=== PATIENT | female | born 1950 | race Caucasian/White ===

== ENCOUNTER 2020-02-07 11:43 | Outpatient (REF) | payer MEDICARE, MEDICAID, SELFPAY | END 2020-02-07 11:44 | disposition home or self-care (01) | LOC: HO.LAB 11:43 | PROVIDERS: PCP Hospitalist; Visit Provider Hospitalist | DX: Z20.828 Contact with and (suspected) exposure to other viral communicable diseases (principal); J44.9 Chronic obstructive pulmonary disease, unspecified | CPT/HCPCS: U0003 ==

== ENCOUNTER → 2020-03-12 09:05 | Outpatient (BNVA) | payer MEDICARE, MEDICAID, SELFPAY | PROVIDERS: PCP Internal Medicine; Visit Provider Hospitalist | DX: Z13.89 Encounter for screening for other disorder (principal) | CPT/HCPCS: Q3014 ==

== ENCOUNTER 2020-03-16 08:31 | Outpatient (REF) | payer MEDICARE, MEDICAID, SELFPAY ==
[2020-03-16 09:59] LABS: MANUAL DIFF FLAG NO
[2020-03-16 10:03] LABS: Basophils Percent Auto 0.3 % (0-2); Eosinophils Absolute Auto 0.2 X10*3/uL (0.0-0.4); Eosinophils Percent Auto 1.6 % (0-4); Hematocrit 35.8 % (37-47); Hemoglobin 10.6 g/dl (12.0-16.0); Imm Gran Abs Auto 0.03 X10*3/uL (0.00-0.03); Imm Gran Pct Auto 0.3 % (0.0-0.4); Lymphocytes Absolute Auto 2.4 X10*3/uL (1.2-4.9); Lymphocytes Percent Auto 23.6 % (20-40); Mean Corpuscular HGB Conc 29.6 g/dl (31.0-35.0); Mean Corpuscular Hemoglobin 25.1 pg (27.0-33.0); Mean Corpuscular Volume 84.6 fL (80-98); Mean Platelet Volume 10.6 fL (9.4-12.3); Monocytes Absolute Auto 0.5 X10*3/uL (0.1-1.2); Monocytes Percent Auto 5.2 % (2-11); Neutrophils Absolute Auto 7.1 X10*3/uL (2.0-8.3); Platelet Count 363 X10*3/uL (160-400); Red Blood Count 4.23 X10*6/uL (4.20-5.50); Red Cell Distribution Width 16.4 % (11.0-16.0); White Blood Count 10.3 X10*3/uL (4.8-10.8)
[2020-03-16 12:31] LABS: Erythrocyte Sedimentation Rate 14 MM/HR (0-20)
[2020-03-17 04:21] LABS: SARS COV2 IgG Negative (Negative)
[2020-03-17 18:37] LABS: Immunoglobulin E 75 kU/L (<OR=114)
== END 2020-03-16 08:32 | disposition home or self-care (01) ==
LOC: HO.LAB 08:31
PROVIDERS: PCP Internal Medicine; Visit Provider Hospitalist
DX: J45.40 Moderate persistent asthma, uncomplicated (principal); J44.9 Chronic obstructive pulmonary disease, unspecified; Z01.84 Encounter for antibody response examination
CPT/HCPCS: 36415; 82785; 85025; 85652; 86769

== ENCOUNTER → 2020-04-24 14:35 | Outpatient (BNVA) | payer MEDICARE, MEDICAID, SELFPAY | PROVIDERS: PCP Internal Medicine; Visit Provider Hospitalist | CPT/HCPCS: Q3014 ==

== ENCOUNTER → 2020-05-14 10:25 | Outpatient (BNVA) | payer MEDICARE, MEDICAID, SELFPAY | PROVIDERS: PCP Internal Medicine; Referring Provider Internal Medicine; Visit Provider Dietitian, Registered ==

== ENCOUNTER → 2020-07-10 10:51 | Outpatient (BNVA) | payer MEDICARE, MEDICAID, SELFPAY | PROVIDERS: PCP Internal Medicine; Visit Provider Hospitalist | DX: Z13.89 Encounter for screening for other disorder (principal) | CPT/HCPCS: Q3014 ==

== ENCOUNTER → 2020-11-11 10:06 | Outpatient (BNVA) | payer MEDICARE, MEDICAID, SELFPAY | PROVIDERS: PCP Internal Medicine; Visit Provider Hospitalist | DX: J44.9 Chronic obstructive pulmonary disease, unspecified (principal); J30.9 Allergic rhinitis, unspecified; J45.40 Moderate persistent asthma, uncomplicated; G47.33 Obstructive sleep apnea (adult) (pediatric); Z99.89 Dependence on other enabling machines and devices | CPT/HCPCS: 99212 ==

== ENCOUNTER → 2020-11-16 09:29 | Outpatient (BNVA) | payer MEDICARE, MEDICAID, SELFPAY | PROVIDERS: PCP Internal Medicine; Visit Provider Dietitian, Registered | DX: E11.9 Type 2 diabetes mellitus without complications (principal) | CPT/HCPCS: 97803 ==

== ENCOUNTER 2021-05-06 09:49 | Outpatient (REF) | payer MEDICARE, MEDICAID, SELFPAY ==
[2021-05-06 11:29] LABS: MANUAL DIFF FLAG NO
[2021-05-06 11:41] LABS: Basophils Percent Auto 0.3 % (0-2); Eosinophils Absolute Auto 0.2 X10*3/uL (0.0-0.4); Eosinophils Percent Auto 1.7 % (0-4); Hematocrit 38.1 % (37.0-47.0); Imm Gran Abs Auto 0.04 X10*3/uL (0.00-0.03); Imm Gran Pct Auto 0.4 % (0.0-0.4); Lymphocytes Absolute Auto 3.3 X10*3/uL (1.2-4.9); Lymphocytes Percent Auto 35.2 % (20-40); Mean Corpuscular HGB Conc 31.5 g/dl (31.0-35.0); Mean Corpuscular Hemoglobin 29.3 pg (27.0-33.0); Mean Corpuscular Volume 92.9 fL (80.0-98.0); Mean Platelet Volume 10.1 fL (9.4-12.3); Monocytes Absolute Auto 0.7 X10*3/uL (0.1-1.2); Monocytes Percent Auto 6.9 % (2-11); Neutrophils Absolute Auto 5.2 x10*3/uL (2.0-8.3); Neutrophils Percent Auto 55.5 % (45-73); Platelet Count 311 X10*3/uL (160-400); Red Cell Distribution Width 13.2 % (11.0-16.0); White Blood Count 9.4 X10*3/uL (4.8-10.8)
[2021-05-06 12:21] LABS: Erythrocyte Sedimentation Rate 12 MM/HR (0-20)
== END 2021-05-06 09:50 | disposition home or self-care (01) ==
LOC: HO.LAB 09:49
PROVIDERS: PCP Internal Medicine; Visit Provider Hospitalist
DX: R05.3 Chronic cough (principal); J44.9 Chronic obstructive pulmonary disease, unspecified; J45.40 Moderate persistent asthma, uncomplicated; R91.8 Other nonspecific abnormal finding of lung field; G47.33 Obstructive sleep apnea (adult) (pediatric); J30.9 Allergic rhinitis, unspecified; Z86.711 Personal history of pulmonary embolism; Z99.89 Dependence on other enabling machines and devices
CPT/HCPCS: 36415; 82785; 85025; 85652; 86003; 99212

== ENCOUNTER → 2021-05-18 09:39 | Outpatient (BNVA) | payer MEDICARE, MEDICAID, SELFPAY | PROVIDERS: PCP Internal Medicine; Visit Provider Dietitian, Registered | DX: E11.9 Type 2 diabetes mellitus without complications (principal) | CPT/HCPCS: 97803 ==

== ENCOUNTER 2021-07-23 08:31 | Outpatient (REF) | payer MEDICARE, MEDICAID, SELFPAY ==
--- NOTE | ~2021-07-23 | FL_ITS ---
EXAMINATION: FL BARIUM SWALLOW CLINICAL INFORMATION: Gastroesophageal reflux disease without esophagitis COMPARISON: None TECHNIQUE: Barium swallow examination is performed using fluoroscopic evaluation in addition to multiple fluoroscopic spot views. The patient is imaged both upright and prone and using both thick and thin sulfate along with effervescent granules. Barium tablet was swallowed in upright position. Fluoroscopy time: 2.5 minutes DAP: 8.878 Gycm2 Images: 27 FINDINGS: The patient initiated swallowing normally. There is mildly ineffective primary peristalsis with to-and-fro tertiary contractions most notable with swallowing in the prone position. No fixed esophageal mucosal abnormality to suggest fracture or mass. No Zenker's diverticulum noted. No hiatal hernia. No gastroesophageal reflux observed spontaneously or elicited with provocative maneuvers (rolling and Valsalva). A barium tablet was swallowed promptly. FL/FL barium swallow IMPRESSION: No gastroesophageal reflux seen. Mildly effective primary peristalsis most notable in prone position. Presbyesophagus can give this appearance.
== END 2021-07-23 08:32 | disposition home or self-care (01) ==
LOC: HO.XRAY 08:31
PROVIDERS: PCP Internal Medicine; Visit Provider Hospitalist
DX: K21.9 Gastro-esophageal reflux disease without esophagitis (principal)
CPT/HCPCS: 74220

== ENCOUNTER → 2021-08-11 10:10 | Outpatient (BNVA) | payer MEDICARE, MEDICAID, SELFPAY | PROVIDERS: PCP Internal Medicine; Visit Provider Hospitalist | DX: U07.1 COVID-19 (principal); J44.9 Chronic obstructive pulmonary disease, unspecified; G47.33 Obstructive sleep apnea (adult) (pediatric); J30.9 Allergic rhinitis, unspecified; J45.40 Moderate persistent asthma, uncomplicated; R05.3 Chronic cough; R91.8 Other nonspecific abnormal finding of lung field; Z99.89 Dependence on other enabling machines and devices | CPT/HCPCS: Q3014 ==

== ENCOUNTER 2021-08-25 08:23 | Outpatient (REF) | payer MEDICARE, MEDICAID, SELFPAY ==
--- NOTE | 2021-08-25 09:45 | PFT_ITS ---
Forced vital capacity is slightly decreased at 77%, FEV1 89%, normal, FEV1/FVC ratio is 89. [id number] 157% and MVV is 56%. Post bronchodilator therapy, there is no significant change. Total lung capacity is 74%. Residual volume 64%. Diffusion capacity 62%. CONCLUSION: Mild restrictive pulmonary disorder. No obstructive airway disorder. Clinical correlation recommended. MD ADELIA Jacinto/MODL / [id number]
== END 2021-08-25 08:24 | disposition home or self-care (01) ==
LOC: HO.RESP 08:23
PROVIDERS: Visit Provider Hospitalist
DX: J44.9 Chronic obstructive pulmonary disease, unspecified (principal)
CPT/HCPCS: 94060; 94727; 94729

== ENCOUNTER → 2021-09-03 10:25 | Outpatient (BNVA) | payer MEDICARE, MEDICAID, SELFPAY | PROVIDERS: PCP Internal Medicine; Visit Provider Hospitalist | DX: G47.33 Obstructive sleep apnea (adult) (pediatric) (principal); U09.9 Post COVID-19 condition, unspecified; R05.3 Chronic cough; J44.9 Chronic obstructive pulmonary disease, unspecified; J45.41 Moderate persistent asthma with (acute) exacerbation; R91.8 Other nonspecific abnormal finding of lung field; Z99.89 Dependence on other enabling machines and devices | CPT/HCPCS: 96372; 99212; J2930 ==

== ENCOUNTER → 2021-11-09 08:39 | Outpatient (BNVA) | payer MEDICARE, MEDICAID, SELFPAY | PROVIDERS: PCP Internal Medicine; Visit Provider Hospitalist | DX: J44.9 Chronic obstructive pulmonary disease, unspecified (principal); J45.41 Moderate persistent asthma with (acute) exacerbation; J30.9 Allergic rhinitis, unspecified; R05.3 Chronic cough; G47.33 Obstructive sleep apnea (adult) (pediatric); R91.8 Other nonspecific abnormal finding of lung field; L93.0 Discoid lupus erythematosus; Z79.899 Other long term (current) drug therapy; Z99.89 Dependence on other enabling machines and devices | CPT/HCPCS: 99212 ==

== ENCOUNTER → 2022-01-14 10:08 | Outpatient (BNVA) | payer MEDICARE, MEDICAID, SELFPAY | PROVIDERS: PCP Internal Medicine; Visit Provider Dietitian, Registered | DX: E11.9 Type 2 diabetes mellitus without complications (principal) | CPT/HCPCS: 97803 ==

== ENCOUNTER → 2022-02-11 10:33 | Outpatient (BNVA) | payer MEDICARE, MEDICAID, SELFPAY | PROVIDERS: PCP Internal Medicine; Visit Provider Hospitalist | DX: J44.9 Chronic obstructive pulmonary disease, unspecified (principal); J45.41 Moderate persistent asthma with (acute) exacerbation; J30.9 Allergic rhinitis, unspecified; R05.3 Chronic cough; R91.8 Other nonspecific abnormal finding of lung field; G47.33 Obstructive sleep apnea (adult) (pediatric); L93.0 Discoid lupus erythematosus; Z79.899 Other long term (current) drug therapy; Z99.89 Dependence on other enabling machines and devices | CPT/HCPCS: 99212 ==

== ENCOUNTER 2022-05-20 08:51 | Outpatient (REF) | payer MEDICARE, MEDICAID, SELFPAY ==
--- NOTE | ~2022-05-20 | XR_ITS ---
EXAMINATION: XR CHEST CLINICAL INFORMATION: Reason for Exam R06.00 - Dyspnea, unspecified COMPARISON: None TECHNIQUE: 2 views of the chest FINDINGS: Clear lungs. No pneumothorax or pleural effusion. Normal cardiomediastinal silhouette. Surgical anchors in the right humeral head. XR/XR chest 2V IMPRESSION: * Clear lungs.
[2022-05-20 10:25] LABS: MANUAL DIFF FLAG NO
[2022-05-20 10:29] LABS: Basophils Percent Auto 0.2 % (0-2); Eosinophils Absolute Auto 0.1 X10*3/uL (0.0-0.4); Eosinophils Percent Auto 1.7 % (0-4); Hematocrit 35.1 % (37.0-47.0); Hemoglobin 11.2 g/dl (12.0-16.0); Imm Gran Abs Auto 0.03 X10*3/uL (0.00-0.03); Imm Gran Pct Auto 0.4 % (0.0-0.4); Lymphocytes Absolute Auto 2.8 X10*3/uL (1.2-4.9); Lymphocytes Percent Auto 34.3 % (20-40); Mean Corpuscular HGB Conc 31.9 g/dl (31.0-35.0); Mean Corpuscular Hemoglobin 28.1 pg (27.0-33.0); Mean Corpuscular Volume 88.2 fL (80.0-98.0); Mean Platelet Volume 9.7 fL (9.4-12.3); Monocytes Absolute Auto 0.5 X10*3/uL (0.1-1.2); Monocytes Percent Auto 5.9 % (2-11); Neutrophils Absolute Auto 4.6 x10*3/uL (2.0-8.3); Neutrophils Percent Auto 57.5 % (45-73); Platelet Count 345 X10*3/uL (160-400); Red Blood Count 3.98 X10*6/uL (4.20-5.50); Red Cell Distribution Width 16.2 % (11.0-16.0); White Blood Count 8.1 X10*3/uL (4.8-10.8)
[2022-05-20 10:54] LABS: Alanine Aminotransferase 30 U/L (0-31); Albumin Level 4.1 g/dL (3.5-5.0); Alkaline Phosphatase 92 U/L (39-117); Anion Gap 10 (12-20); Aspartate Amino Transferase 23 U/L (5-31); Bilirubin Direct < 0.2 mg/dL (0.0-0.5); Bilirubin Total 0.3 mg/dL (0.0-1.0); Blood Urea Nitrogen 14 mg/dL (9-16); Calcium 9.2 mg/dL (8.4-10.2); Carbon Dioxide 27 mmol/L (22-29); Chloride 105 mmol/L (96-108); Estimated Glomerular Filt Rate > 60; Glucose Random 109 mg/dL (60-115); Potassium 4.8 mmol/L (3.3-5.1); Sodium 137 mmol/L (135-145); Total Protein 6.4 g/dL (6.5-8.0)
[2022-05-20 10:55] LABS: D Dimer High Sensitivity < 150 NG/ML
[2022-05-20 11:04] LABS: Troponin-I High Sensitivity < 3.5 ng/L (<3.5-17.0)
[2022-05-20 11:35] LABS: Erythrocyte Sedimentation Rate 7 MM/HR (0-20)
[2022-05-23 17:33] LABS: Immunoglobulin E 190 kU/L (<OR=114)
== END 2022-05-20 08:52 | disposition home or self-care (01) ==
LOC: HO.LAB 08:51
PROVIDERS: PCP Internal Medicine; Visit Provider Hospitalist
DX: R07.9 Chest pain, unspecified (principal); R06.00 Dyspnea, unspecified; M79.89 Other specified soft tissue disorders
CPT/HCPCS: 36415; 71046; 80048; 80076; 82785; 84484; 85025; 85379; 85652; 99212

== ENCOUNTER → 2022-07-19 08:55 | Outpatient (BNVA) | payer MEDICARE, MEDICAID, SELFPAY | PROVIDERS: PCP Internal Medicine; Visit Provider Hospitalist | DX: J45.41 Moderate persistent asthma with (acute) exacerbation (principal); J30.9 Allergic rhinitis, unspecified; J44.9 Chronic obstructive pulmonary disease, unspecified; G47.33 Obstructive sleep apnea (adult) (pediatric); R05.3 Chronic cough; R91.8 Other nonspecific abnormal finding of lung field; L93.0 Discoid lupus erythematosus; R06.09 Other forms of dyspnea; Z99.89 Dependence on other enabling machines and devices | CPT/HCPCS: 99212 ==

== ENCOUNTER → 2022-09-01 09:04 | Outpatient (BNVA) | payer MEDICARE, MEDICAID, SELFPAY | PROVIDERS: PCP Internal Medicine; Visit Provider Dietitian, Registered | DX: E11.9 Type 2 diabetes mellitus without complications (principal) | CPT/HCPCS: 97803 ==

== ENCOUNTER 2023-01-23 08:40 | Outpatient (AMB) | payer MEDICARE, MEDICAID, SELFPAY ==
[2023-01-23 08:59] VITALS: BP 118/70; PULSE 63; O2SAT 99; BMI 28.9
--- NOTE | 2023-01-23 08:59 | A.OFFVIS_ITS ---
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 Allergies acetaminophen [Percocet] Allergy (Severe, Verified 01/23/23 09:01) Vomitting and Diarrhea aspirin Allergy (Severe, Verified 01/23/23 09:01) Vomitting and Diarrhea oxycodone [Percocet] Allergy (Severe, Verified 01/23/23 09:01) Tachycardia and High Blood Pressure topiramate [Topamax] Allergy (Severe, Verified 01/23/23 09:01) Tachycardia and High Blood Pressure cyanocobalamin (vitamin B12) Allergy (Unknown, Verified 01/23/23 09:01) Vomitting and Diarrhea Amitriptyline Allergy (Severe, Uncoded 01/23/23 09:01) Tachycardia and High Blood Pressure latex- rash Allergy (Severe, Uncoded 01/23/23 09:01) Rash and Hives MigraLam Allergy (Severe, Uncoded 01/23/23 09:01) Vomitting and Diarrhea red meat Allergy (Severe, Uncoded 01/23/23 09:01) Vomitting and Diarrhea tomatoes, strawberrries Allergy (Severe, Uncoded 01/23/23 09:01) Vomitting and Diarrhea lactose intolerant Allergy (Unknown, Uncoded 01/23/23 09:01) vomitting and diarrhea HPI HPI Comments History of Present Illness Details The patient is a 72-year-old woman with known obstructive sleep apnea history of pulmonary emboli in addition to asthma. More recently she has been dealing with significant eczema and other rashes. She was placed on Dupixent significantly improving her rash but also significant improving her breathing. She has been having issues with hoarseness. I explained to her that it may be the Anoro. She can stop the Anoro just to see if this is the culprit. In the meantime if the horses not too bad she continue the Anoro and continue to rinse with mouthwash rather water. Alvesco as a very good steroid typically does not resulting hoarseness or any thrush. She should be using it with spacer. 05/06/2021 the patient is here for a pulmonary follow-up visit. Since we last spoke many months ago she has been complaining of a chronic cough. The cough is nonproductive in nature. Usually worse at nighttime when she lays flat. Sometimes it does gag her. Sometimes she has a hard time eating because she feels like food is getting stuck while she is swallowing. Sometimes she also regurgitation food. We did briefly discuss the reflux diet and she is drinking about 4 or 5 cups of coffee a day. She is going to try to cut that down to at least a couple. In the meantime she is doing the rest the diet. We did talk about the small meals and making sure that she sleeps elevated and does not eat too late. In the meantime she did have a episode of chest pain that was evaluated at [facility]. She was briefly admitted. With a history of pulmonary emboli she did undergo a CT scan of the chest that we personally reviewed. It demonstrated that she had stable pulmonary nodules subcentimeter in nature when compared to 2016 and 2017. Therefore these are very benign nodules. She did have some air trapping was a pattern consistent with her significant asthma. As far as medications on her metoprolol was increased during that time because of the high blood pressure. Still explained to her that sometimes too much the beta fuentes can in the interrupted benefits of her respiratory medicines. The patient does have significant asthma. She is also complaining of headaches. She has been using her CPAP at nighttime. Will address the question with an overnight oximetry to make sure that she is not desaturating at nighttime. Patient also complaining of dyspnea on exertion. She has responded very well to her respiratory therapy. The patient will undergo pulmonary function studies when she returns. 11/09/2021 the patient is here for a pulmonary follow-up visit. Overall the patient is doing a little better. She did have significant COVID-19 which ultimately activated her lupus. A appears to be mainly of her scan resulting significant pleuritis and skin changes. 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 The patient also has been noticing increased wheezing during the daytime. She also has a chronic cough with mucus production. The patient has use a lot of prednisone recently and she is currently maximize her respiratory therapy. In view of her frequent exacerbations and need for prednisone will go ahead and start her on Daliresp to treated for chronic bronchitis with hopes of decreasing exacerbations in the need for prednisone. The patient also has psoriasis and other autoimmune conditions which it may also help decrease the prednisone need. She continues use her CPAP at nighttime. The CPAP therapy continues to be effective in beneficial. Although her machine is not working appropriately. We did request a replacement machine from [facility]. She understands that is can take longer than usual. Will reach out to [facility] just to make sure that they have all the information that they need to move for with the replacement. 02/11/2022 the patient is here for a pulmonary follow-up visit. Overall she is doing well from a respiratory status. She is responding to the current respiratory regimen. She has not had to use her rescue inhaler. She is not using prednisone for her asthma. Seems to be well controlled. 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 Significant rashes difficult to control. She had responded very well to the Dupixent in the past. Although she stopped it because she was getting some all throughout just. At this point her atopic dermatitis and discoid lupus have been significantly exacerbated and she will talk to her dining room server about r estarting Dupixent. If she does start Dupixent a know that she will do better from a respiratory status and she will be able to cut down on some of the medications as well. She is also using her CPAP. The CPAP therapy continues to be affecting beneficial. She does use it for more than 4 hours a night. No recent x-rays of blood work to review at this time. 05/20/2022 the patient is here for a pulmonary follow-up visit. She has been having hard time with her breathing. She has been having more breathlessness and shortness of breath. Moderate severity. Even with minimal activity. She states that her breathing became worse after starting a new medication for her severe eczema, Rinvoq. The TOMMY inhibitor has been X effective in improving her significant neck small a throughout her body and she has found significant relief. Therefore, it is important to continues medication in view of how severe symptoms were prior to them. However, there may be affecting her breathing. She does have a history of blood clots and this medication can increase clot formation. On examination she does not have any significant wheezing. We did go for brief walking oximetry the patient did desaturate down to about 90% and she had a dyspnea score of 9/10. Although no significant wheezing or chest tightness that I could appreciate. Therefore I will have her undergo blood work in addition to a chest x-ray to better delineate her symptoms. 07/19/2022 the patient is here for a pulmonary follow-up visit. The patient is doing a lot better. She still responding well to the immune suppression for her significant dermatitis. It is probably helping her asthma as well. She does continue her respiratory therapy but has not required a rescue inhaler. She has not required any prednisone which is reassuring. The patient did get her new CPAP machine. The APAP is set up 10-14 and her average pressure is 10. Therefore likely patient probably can tolerate a lower pressure specially with an AHI of 0.8. Will go ahead and decrease the pressure to 8-14. The patient still has a ramp of 6. She will continue using the current mask. She is getting supplies readily from the [employer]. Otherwise patient is without any other complaints. The patient will call if any other issues arise. She will follow-up in 6-8 months. 01/23/2023 the patient is here for pulmonary follow-up visit. The patient overall doing well from a respiratory status. She continues her respiratory medications with good adherence. She has not required any rescue medication and not required any prednisone. Although she has a trip planned to [place] and I will make sure she has medications that she can take in case the asthma starts worsening while she is there. The patient continues with CPAP therapy. CPAP therapy continues to be affecting beneficial. She does use for more than 4 hours a night. [facility] Medical History (Updated 07/19/22 @ 22:36 by Jeremy Lomeli MD) Limb swelling Discoid lupus COVID-19 Pulmonary nodules Chronic cough Chronic allergic rhinitis Atopic dermatitis RUCHI on CPAP Asthma-COPD overlap syndrome Surgical History (Updated 09/06/21 @ 22:35 by Jeremy Lomeli MD) Asthma Social History (Updated 11/11/20 @ 11:00 by CHAIM Romero) Patient Tobacco Use Status: Never used Tobacco Review of Systems Const Denies body aches, Denies difficulty sleeping and Denies malaise Eyes Denies change in vision ENT Denies change in voice Card Denies chest pain, Reports leg edema and Reports dyspnea on exertion Resp Reports dyspnea on exertion and Denies wheezing GI Denies constipation, Reports dyspepsia, Denies diarrhea, Denies nausea and Denies vomiting Musc Reports no additional complaints Skin/Breast Denies pruritus and Denies rash Endo Denies flushing Nba/Lymph Denies lymphadenopathy Aller/Immun Denies wheezing Physical Exam Vital Signs: Last Vital Signs Pulse 63 01/23/23 08:59 BP 118/70 01/23/23 08:59 Pulse Ox 99 01/23/23 08:59 Oxygen Delivery Method Room Air 01/23/23 08:59 BMI result Body Mass Index 28.9 Const General: alert Orientation/consciousness: patient oriented x3 Neck Neck: Yes normal visual inspection, Yes full ROM and Yes no lymphadenopathy Chest Chest palpation & inspection: normal inspection of the chest Resp Effort & Inspection: normal respiratory effort Auscultation: no rales, no rhonchi, no wheezes and diminished lung sounds Cardio Rate: regular rate Rhythm: regular rhythm Heart sounds: S1 normal heart sound present and S2 normal heart sound present GI Palpation (GI): Soft to palpation and nontender Auscultation: normal bowel sounds Skin General skin exam: no rashes or lesions noted Neuro General: patient oriented x3 Extrem General: Yes no clubbing, cyanosis or edema Assessment & Plan Assessment & Plan (1) Dyspnea: Code(s): R06.00 - Dyspnea, unspecified Qualifiers: Dyspnea type: dyspnea on exertion Qualified Code(s): R06.09 - Other forms of dyspnea (2) Asthma-COPD overlap syndrome: Code(s): J44.9 - Chronic obstructive pulmonary disease, unspecified (3) RUCHI on CPAP: Code(s): G47.33 - Obstructive sleep apnea (adult) (pediatric); Z99.89 - Dependence on other enabling machines and devices (4) Chronic allergic rhinitis: Code(s): J30.9 - Allergic rhinitis, unspecified (5) Asthma: Code(s): J45.909 - Unspecified asthma, uncomplicated Qualifiers: Asthma complication type: with acute exacerbation Asthma persistence: persistent Asthma severity: moderate Qualified Code(s): J45.41 - Moderate persistent asthma with (acute) exacerbation (6) Chronic cough: Code(s): R05.3 - Chronic cough (7) Pulmonary nodules: Comment: Stable for more than 5 years based on her CT scan from September 2020 Code(s): R91.8 - Other nonspecific abnormal finding of lung field (8) Discoid lupus: Code(s): L93.0 - Discoid lupus erythematosus Plan Continue Anoro and Alvesco as prescribed AFTAB/nebulizer as needed Continue APAP therapy at night continue singulair F/U 6-8 months Medications: New albuterol sulfate 90 mcg/actuation 2 inhalations inhalation Q6H 30 days PRN 18 grams 12RF shortness of breath or wheezing J44.9 - Chronic obstructive pulmonary disease, unspecified doxycycline hyclate 100 mg PO BID 10 days 20 caps 0RF Refilled Anoro Ellipta 62.5-25 mcg/actuation (umeclidinium-vilanterol) 1 inh inhalation DAILY 180 ea 11RF NS ciclesonide 160 mcg/actuation (Alvesco) 1 puff PO BID 18.3 ea 11RF montelukast 10 mg PO BEDTIME 28 tabs 11RF Coding Level of Care Code Est Pt Level 4 (30561) Diagnoses Dyspnea on exertion R06.09 Dyspnea type: dyspnea on exertion Asthma-COPD overlap syndrome J44.9 RUCHI on CPAP G47.33; Z99.89 Chronic allergic rhinitis J30.9 Moderate persistent asthma with acute exacerbation J45.41 Asthma complication type: with acute exacerbation Asthma persistence: persistent Asthma severity: moderate Chronic cough R05.3 Pulmonary nodules R91.8 Discoid lupus L93.0 Time Spent (min) 16
== END 2023-01-23 09:19 | disposition home or self-care (01) ==
PROVIDERS: PCP Internal Medicine; Visit Provider Hospitalist
DX: R06.09 Other forms of dyspnea (principal); J44.9 Chronic obstructive pulmonary disease, unspecified; G47.33 Obstructive sleep apnea (adult) (pediatric); Z99.89 Dependence on other enabling machines and devices; J30.9 Allergic rhinitis, unspecified; J45.41 Moderate persistent asthma with (acute) exacerbation; R05.3 Chronic cough; R91.8 Other nonspecific abnormal finding of lung field; L93.0 Discoid lupus erythematosus
CPT/HCPCS: 99214

== ENCOUNTER → 2023-01-23 08:40 | Outpatient (BNVA) | payer MEDICARE, MEDICAID, SELFPAY | PROVIDERS: PCP Internal Medicine; Visit Provider Hospitalist | DX: J45.41 Moderate persistent asthma with (acute) exacerbation (principal); J44.9 Chronic obstructive pulmonary disease, unspecified; J30.9 Allergic rhinitis, unspecified; R06.09 Other forms of dyspnea; R05.3 Chronic cough; R91.8 Other nonspecific abnormal finding of lung field; G47.33 Obstructive sleep apnea (adult) (pediatric); L93.0 Discoid lupus erythematosus; Z99.89 Dependence on other enabling machines and devices | CPT/HCPCS: 99212 ==

== ENCOUNTER 2023-02-06 09:21 | Outpatient (AMB) | payer MEDICARE, MEDICAID, SELFPAY ==
[2023-02-06 10:07] VITALS: BMI 29.5
--- NOTE | 2023-02-06 10:07 | A.OFFVIS_ITS ---
Intake VS Expanded 02/06/23 10:07 Height 5 ft 3 in Weight 166 lb 10.711 oz BMI 29.5 Intake Visit Reasons: T2DM Allergies acetaminophen [Percocet] Allergy (Severe, Verified 01/23/23 09:01) Vomitting and Diarrhea aspirin Allergy (Severe, Verified 01/23/23 09:01) Vomitting and Diarrhea oxycodone [Percocet] Allergy (Severe, Verified 01/23/23 09:) Tachycardia and High Blood Pressure topiramate [Topamax] Allergy (Severe, Verified 01/23/23 09:01) Tachycardia and High Blood Pressure cyanocobalamin (vitamin B12) Allergy (Unknown, Verified 01/23/23 09:) Vomitting and Diarrhea Amitriptyline Allergy (Severe, Uncoded 01/23/23 09:) Tachycardia and High Blood Pressure latex- rash Allergy (Severe, Uncoded 01/23/23 09:) Rash and Hives MigraLam Allergy (Severe, Uncoded 01/23/23 09:) Vomitting and Diarrhea red meat Allergy (Severe, Uncoded 01/23/23 09:) Vomitting and Diarrhea tomatoes, strawberrries Allergy (Severe, Uncoded 01/23/23 09:01) Vomitting and Diarrhea lactose intolerant Allergy (Unknown, Uncoded 01/23/23 09:) vomitting and diarrhea HPI Nutrition Presentation Details Pt presents for MNT f/u for T2DM Pt brings BG record and FB ranging from 90-132 and bedtime BG ranging from 138- 189 , has had 2-3 poc higher than 200 in the past 2 weeks as per written record brought today. Pt reports feeling well. Reports needing review on low sodium concepts Has 3 meals/day and 1-2 snack, has a variety of foods food frequency protein foods : 9-12 oz/d ( from legumes/eggs/ poultry /beef/fish) fruits: 1-2/day as snack dairy: choosing dairy alternative (almond, pea, lactose free) 1-2 /d vegetables: 2 serving/d starches > 15 serving/d fried foods: 0-2/m pastries: 1-2/wk Most Recent Diabetes Results: Creatinine 0.75 mg/dL (0.5-1.4) 05/20/22 Blood Urea Nitrogen 14 mg/dL (9-16) 05/20/22 Sodium 137 mmol/L (135-145) 05/20/22 Potassium 4.8 mmol/L (3.3-5.1) 05/20/22 Chloride 105 mmol/L (96-108) 05/20/22 Carbon Dioxide 27 mmol/L (22-29) 05/20/22 Calcium 9.2 mg/dL (8.4-10.2) 05/20/22 AST 23 U/L (5-31) 05/20/22 ALT 30 U/L (0-31) 05/20/22 Total Protein 6.4 g/dL (6.5-8.0) L 05/20/22 Albumin 4.1 g/dL (3.5-5.0) 05/20/22 [facility] Medical History (Updated 07/19/22 @ 22:36 by Jeremy Lomeli MD) Limb swelling Discoid lupus COVID-19 Pulmonary nodules Chronic cough Chronic allergic rhinitis Atopic dermatitis RUCHI on CPAP Asthma-COPD overlap syndrome Surgical History (Updated 09/06/21 @ 22:35 by Jeremy Lomeli MD) Asthma Social History (Updated 11/11/20 @ 11:00 by Magda Powers Radha) Patient Tobacco Use Status: Never used Tobacco Assessment & Plan Assessment & Plan (1) Type 2 diabetes mellitus without complications: Code(s): E11.9 - Type 2 diabetes mellitus without complications Plan: Review low sodium food concepts es kcal needs as per Mifnvlin sT Jeor: 9531-8082 (sedentary) (40% carb, 30% fat, 30% prot) Est fluid needs as per 25 ml/kg bw: 1909 ml/d. Na: < 1500 mg/d Fiber 10-12 g/d and gradual increase to 25 as tolerated Educated patient on: ( R = reviewed V = verbalizes understanding N/R = needs review N/A = not applicable * Food sources of carbohydrate, adequate serving sizes and its role in various health conditions: R V * Differences between complex carbohydrates a simple carbohydrates, role of fiber in diet: R V * Differences between types of fats and role in diet (mono on saturated fat fatty acids, saturated fatty acids, trans fats): R V * Food sources of sodium in salt and healthy modifications for heart health in kidney health: R V * Vitamins and minerals: R V * Healthy plate method concept: R V * Physical activity: Benefits a precaution: R V * Hypoglycemia protocol (rule of 15): R V * Dietary prevention of Hyperglycemia: R V Patient Instructions: Choose low sodium food options, choose low sodium seasonings- see list of options Coding Level of Care Code Nutr Indiv Subseq (66081) Diagnoses Type 2 diabetes mellitus without complications E11.9 Time Spent (min) 30
== END 2023-02-06 10:38 | disposition home or self-care (01) ==
PROVIDERS: PCP Internal Medicine; Visit Provider Dietitian, Registered
DX: E11.9 Type 2 diabetes mellitus without complications (principal)

== ENCOUNTER → 2023-02-06 09:21 | Outpatient (BNVA) | payer MEDICARE, MEDICAID, SELFPAY | PROVIDERS: PCP Internal Medicine; Visit Provider Dietitian, Registered | DX: E11.9 Type 2 diabetes mellitus without complications (principal); Z68.29 Body mass index [BMI] 29.0-29.9, adult; Z71.3 Dietary counseling and surveillance | CPT/HCPCS: 97803 ==

== ENCOUNTER 2023-08-07 10:11 | Outpatient (AMB) | payer MEDICARE, MEDICAID, SELFPAY ==
--- NOTE | 2023-08-07 10:18 | A.OFFVIS_ITS ---
Vital Signs 08/07/23 10:19 Height 5 ft 3 in Weight 166 lb 10.711 oz BMI 29.5 Pulse 70 Pulse Source Pulse Oximeter Pulse Oximetry (%) 99 Oxygen Delivery Method Room Air Intake Visit Reasons: Asthma Coal Inspector Required: No Allergies acetaminophen [Percocet] Allergy (Severe, Verified 08/07/23 10:20) Vomitting and Diarrhea aspirin Allergy (Severe, Verified 08/07/23 10:20) Vomitting and Diarrhea oxycodone [Percocet] Allergy (Severe, Verified 08/07/23 10:20) Tachycardia and High Blood Pressure topiramate [Topamax] Allergy (Severe, Verified 08/07/23 10:20) Tachycardia and High Blood Pressure cyanocobalamin (vitamin B12) Allergy (Unknown, Verified 08/07/23 10:20) Vomitting and Diarrhea Amitriptyline Allergy (Severe, Uncoded 08/07/23 10:20) Tachycardia and High Blood Pressure latex- rash Allergy (Severe, Uncoded 08/07/23 10:20) Rash and Hives MigraLam Allergy (Severe, Uncoded 08/07/23 10:20) Vomitting and Diarrhea red meat Allergy (Severe, Uncoded 08/07/23 10:20) Vomitting and Diarrhea tomatoes, strawberrries Allergy (Severe, Uncoded 08/07/23 10:20) Vomitting and Diarrhea lactose intolerant Allergy (Unknown, Uncoded 08/07/23 10:20) vomitting and diarrhea HPI Comments Details: The patient is a 72-year-old woman with known obstructive sleep apnea history of pulmonary emboli in addition to asthma. More recently she has been dealing with significant eczema and other rashes. She was placed on Dupixent significantly improving her rash but also significant improving her breathing. She has been having issues with hoarseness. I explained to her that it may be the Anoro. She can stop the Anoro just to see if this is the culprit. In the meantime if the horses not too bad she continue the Anoro and continue to rinse with mouthwash rather water. Alvesco as a very good steroid typically does not resulting hoarseness or any thrush. She should be using it with spacer. 05/06/2021 the patient is here for a pulmonary follow-up visit. Since we last spoke many months ago she has been complaining of a chronic cough. The cough is nonproductive in nature. Usually worse at nighttime when she lays flat. Sometimes it does gag her. Sometimes she has a hard time eating because she feels like food is getting stuck while she is swallowing. Sometimes she also regurgitation food. We did briefly discuss the reflux diet and she is drinking about 4 or 5 cups of coffee a day. She is going to try to cut that down to at least a couple. In the meantime she is doing the rest the diet. We did talk about the small meals and making sure that she sleeps elevated and does not eat too late. In the meantime she did have a episode of chest pain that was evaluated at [facility]. She was briefly admitted. With a history of pulmonary emboli she did undergo a CT scan of the chest that we personally reviewed. It demonstrated that she had stable pulmonary nodules subcentimeter in nature when compared to 2016 and 2017. Therefore these are very benign nodules. She did have some air trapping was a pattern consistent with her significant asthma. As far as medications on her metoprolol was increased during that time because of the high blood pressure. Still explained to her that sometimes too much the beta fuentes can in the interrupted benefits of her respiratory medicines. The patient does have significant asthma. She is also complaining of headaches. She has been using her CPAP at nighttime. Will address the question with an overnight oximetry to make sure that she is not desaturating at nighttime. Patient also complaining of dyspnea on exertion. She has responded very well to her respiratory therapy. The patient will undergo pulmonary function studies when she returns. 07/19/2022 the patient is here for a pulmonary follow-up visit. The patient is doing a lot better. She still responding well to the immune suppression for her significant dermatitis. It is probably helping her asthma as well. She does continue her respiratory therapy but has not required a rescue inhaler. She has not required any prednisone which is reassuring. The patient did get her new CPAP machine. The APAP is set up 10-14 and her average pressure is 10. Therefore likely patient probably can tolerate a lower pressure specially with an AHI of 0.8. Will go ahead and decrease the pressure to 8-14. The patient still has a ramp of 6. She will continue using the current mask. She is getting supplies readily from the [employer]. Otherwise patient is without any other complaints. The patient will call if any other issues arise. She will follow-up in 6-8 months. 01/23/2023 the patient is here for pulmonary follow-up visit. The patient overall doing well from a respiratory status. She continues her respiratory medications with good adherence. She has not required any rescue medication and not required any prednisone. Although she has a trip planned to [place] and I will make sure she has medications that she can take in case the asthma starts worsening while she is there. The patient continues with CPAP therapy. CPAP therapy continues to be affecting beneficial. She does use for more than 4 hours a night. 08/07/2023 the patient is here for a pulmonary follow-up visit. Overall she is doing fair. She has been having issues with low oxygen levels. She does have a home pulse oximeter that sometimes she reads pulse ox in the 80s. She does get very cold hands however. Is not clear how accurate reading is. She also went to [facility] for a colonoscopy and also an upper endoscopy. Apparently she could back. The colonoscopy done because she did become hypoxic. I do not have the details of what happened. Indeed the patient was under some anesthesia effect and she does have underlying sleep apnea so the probably had a component. Will go ahead and request a chest x-ray at this time. The patient also describes some chest pressure especially when exercising. She did have an EKG at [facility] and she was told that it was okay. Will go ahead and request a cardiac stress echo to see if there is any cardiac component. She does continue on her Alvesco and also Anoro. Therapy has been affecting beneficial she denies any wheezing or coughing. She also continues uses CPAP at nighttime. The CPAP therapy again continues to be affecting beneficial. I did reassure her with a brief walking oximetry that her pulse ox was 99-100%. Heart rate was also stable. She is aware that if she is going to use her home pulse oximeter she needs to make sure that she has good perfusion to her extremities. [facility] Medical History (Updated 08/07/23 @ 10:48 by Jeremy Lomeli MD) Limb swelling Discoid lupus COVID-19 Pulmonary nodules Chronic cough Chronic allergic rhinitis Atopic dermatitis RUCHI on CPAP Asthma-COPD overlap syndrome Surgical History (Updated 09/06/21 @ 22:35 by Jeremy Lomeli MD) Asthma Social History (Updated 11/11/20 @ 11:00 by CHAIM Romero) Patient Tobacco Use Status: Never used Tobacco Review of Systems Const Denies body aches, Denies difficulty sleeping and Denies malaise Eyes Denies change in vision ENT Denies change in voice Card Reports chest pain, Reports leg edema and Reports dyspnea on exertion Resp Reports dyspnea on exertion and Denies wheezing GI Denies constipation, Reports dyspepsia, Denies diarrhea, Denies nausea and Denies vomiting Musc Reports no additional complaints Skin/Breast Denies pruritus and Denies rash Endo Denies flushing Nba/Lymph Denies lymphadenopathy Aller/Immun Denies wheezing Physical Exam Vital Signs: Last Vital Signs Pulse 70 08/07/23 10:19 Pulse Ox 99 08/07/23 10:19 Oxygen Delivery Method Room Air 08/07/23 10:19 BMI result Body Mass Index 29.5 Const General: alert Orientation/consciousness: patient oriented x3 Neck Neck: Yes normal visual inspection, Yes full ROM and Yes no lymphadenopathy Chest Chest palpation & inspection: normal inspection of the chest Resp Effort & Inspection: normal respiratory effort Auscultation: no rales, no rhonchi, no wheezes and diminished lung sounds Cardio Rate: regular rate Rhythm: regular rhythm Heart sounds: S1 normal heart sound present and S2 normal heart sound present GI Palpation (GI): Soft to palpation and nontender Auscultation: normal bowel sounds Skin General skin exam: no rashes or lesions noted Neuro General: patient oriented x3 Extrem General: Yes no clubbing, cyanosis or edema Assessment & Plan Assessment & Plan (1) Dyspnea: Code(s): R06.00 - Dyspnea, unspecified Category: Medical Qualifiers: Dyspnea type: dyspnea on exertion Qualified Code(s): R06.09 - Other forms of dyspnea (2) Asthma-COPD overlap syndrome: Code(s): J44.9 - Chronic obstructive pulmonary disease, unspecified Category: Medical (3) RUCHI on CPAP: Code(s): G47.33 - Obstructive sleep apnea (adult) (pediatric); Z99.89 - Dependence on other enabling machines and devices Category: Medical (4) Chronic allergic rhinitis: Code(s): J30.9 - Allergic rhinitis, unspecified Category: Medical (5) Asthma: Code(s): J45.909 - Unspecified asthma, uncomplicated Category: Surgical Qualifiers: Asthma complication type: with acute exacerbation Asthma persistence: persistent Asthma severity: moderate Qualified Code(s): J45.41 - Moderate persistent asthma with (acute) exacerbation (6) Chronic cough: Code(s): R05.3 - Chronic cough Category: Medical (7) Pulmonary nodules: Comment: Stable for more than 5 years based on her CT scan from September 2020 Code(s): R91.8 - Other nonspecific abnormal finding of lung field Category: Medical (8) Discoid lupus: Code(s): L93.0 - Discoid lupus erythematosus Category: Medical (9) Chest pain: Code(s): R07.9 - Chest pain, unspecified Category: Medical Qualifiers: Chest pain type: unspecified Qualified Code(s): R07.9 - Chest pain, unspecified Plan Continue Anoro and Alvesco as prescribed AFTAB/nebulizer as needed Continue APAP therapy at night continue singulair CXR Stress ECHO F/U 2-3 months Orders: Orders CA echo stress exercise Today R06.09 - Other forms of dyspnea, R07.9 - Chest pain, unspecified XR chest 2V Today R07.9 - Chest pain, unspecified Coding Level of Care Code Est Pt Level 4 (02662) Diagnoses Dyspnea on exertion R06.09 Dyspnea type: dyspnea on exertion Asthma-COPD overlap syndrome J44.9 RUCHI on CPAP G47.33; Z99.89 Chronic allergic rhinitis J30.9 Moderate persistent asthma with acute exacerbation J45.41 Asthma complication type: with acute exacerbation Asthma persistence: persistent Asthma severity: moderate Chronic cough R05.3 Pulmonary nodules R91.8 Discoid lupus L93.0 Chest pain, unspecified type R07.9 Chest pain type: unspecified Time Spent (min) 18
[2023-08-07 10:19] VITALS: PULSE 70; O2SAT 99; BMI 29.5
== END 2023-08-07 10:51 | disposition home or self-care (01) ==
PROVIDERS: PCP Internal Medicine; Visit Provider Hospitalist
DX: R06.09 Other forms of dyspnea (principal); J44.9 Chronic obstructive pulmonary disease, unspecified; G47.33 Obstructive sleep apnea (adult) (pediatric); Z99.89 Dependence on other enabling machines and devices; J30.9 Allergic rhinitis, unspecified; J45.41 Moderate persistent asthma with (acute) exacerbation; R05.3 Chronic cough; R91.8 Other nonspecific abnormal finding of lung field; L93.0 Discoid lupus erythematosus; R07.9 Chest pain, unspecified
CPT/HCPCS: 99214

== ENCOUNTER → 2023-08-07 10:11 | Outpatient (BNVA) | payer MEDICARE, MEDICAID, SELFPAY | PROVIDERS: PCP Internal Medicine; Visit Provider Hospitalist | DX: R06.09 Other forms of dyspnea (principal); J44.9 Chronic obstructive pulmonary disease, unspecified; J30.9 Allergic rhinitis, unspecified; R91.8 Other nonspecific abnormal finding of lung field; L93.0 Discoid lupus erythematosus; G47.33 Obstructive sleep apnea (adult) (pediatric); R05.3 Chronic cough; R07.9 Chest pain, unspecified; Z99.89 Dependence on other enabling machines and devices | CPT/HCPCS: 99212 ==

== ENCOUNTER 2023-08-22 08:31 | Outpatient (AMB) | payer MEDICARE, MEDICAID, SELFPAY ==
--- NOTE | 2023-08-22 08:50 | A.OFFVIS_ITS ---
VS Expanded 08/22/23 08:51 Height 5 ft 3 in Weight 166 lb 10.711 oz BMI 29.5 Intake Visit Reasons: T2DM/LVM Allergies acetaminophen [Percocet] Allergy (Severe, Verified 08/07/23 10:20) Vomitting and Diarrhea aspirin Allergy (Severe, Verified 08/07/23 10:20) Vomitting and Diarrhea oxycodone [Percocet] Allergy (Severe, Verified 08/07/23 10:20) Tachycardia and High Blood Pressure topiramate [Topamax] Allergy (Severe, Verified 08/07/23 10:20) Tachycardia and High Blood Pressure cyanocobalamin (vitamin B12) Allergy (Unknown, Verified 08/07/23 10:20) Vomitting and Diarrhea Amitriptyline Allergy (Severe, Uncoded 08/07/23 10:20) Tachycardia and High Blood Pressure latex- rash Allergy (Severe, Uncoded 08/07/23 10:20) Rash and Hives MigraLam Allergy (Severe, Uncoded 08/07/23 10:20) Vomitting and Diarrhea red meat Allergy (Severe, Uncoded 08/07/23 10:20) Vomitting and Diarrhea tomatoes, strawberrries Allergy (Severe, Uncoded 08/07/23 10:20) Vomitting and Diarrhea lactose intolerant Allergy (Unknown, Uncoded 08/07/23 10:20) vomitting and diarrhea Nutrition Presentation Details: Pt presents for MNT f/u for T2DM Pt brought BG record to [facility] appt and FBG 120-146 mg/dl, and 2 hours ranges from 102- 181 mg/dl Pt reports having good appetite, participating in [facility] prog in [facility] and has breakfast and lunch at the prog B: eggs, wheat bread, coffee /tea and fruit L: Root veg, codfish and peppers/onions, fruit water or milk dinner: rice/chaney chicken or tuna sand and fruit snack: peanut butter crackers (sometimes skips snack, reports noticing higher fasting bg when skipping bedtime snack. fruits/day: 2-3/d dairy: choosing lactose free related to intolerance 2-3 /day ve serving /day fish: 1-3 x/wk fried foods: 1-2 m ETOH/smoking denies BS Monitoring Most Recent Diabetes Results: No Data to Display [facility] Medical History (Updated 08/07/23 @ 10:48 by Jeremy Lomeli MD) Limb swelling Discoid lupus COVID-19 Pulmonary nodules Chronic cough Chronic allergic rhinitis Atopic dermatitis RUCHI on CPAP Asthma-COPD overlap syndrome Surgical History (Updated 09/06/21 @ 22:35 by Jeremy Lomeli MD) Asthma Social History (Updated 11/11/20 @ 11:00 by Magda Powers Radha) Patient Tobacco Use Status: Never used Tobacco Assessment & Plan Assessment & Plan (1) Type 2 diabetes mellitus without complications: Code(s): E11.9 - Type 2 diabetes mellitus without complications Category: Medical Plan: Review low sodium food concepts es kcal needs as per Miffllin sT Jeor: [id number] (sedentary) (40% carb, 30% fat, 30% prot) Est fluid needs as per 25 ml/kg bw: 1909 ml/d. Na: < 1500 mg/d Fiber 10-12 g/d and gradual increase to 25 as tolerated Educated patient on: ( R = reviewed V = verbalizes understanding N/R = needs review N/A = not applicable * Food sources of carbohydrate, adequate serving sizes and its role in various health conditions: R V * Differences between complex carbohydrates a simple carbohydrates, role of fiber in diet: R V * Differences between types of fats and role in diet (mono on saturated fat fatty acids, saturated fatty acids, trans fats): R V * Food sources of sodium in salt and healthy modifications for heart health in kidney health: R V * Vitamins and minerals: R V * Healthy plate method concept: R V * Physical activity: Benefits a precaution: R V * Hypoglycemia protocol (rule of 15): R V * Dietary prevention of Hyperglycemia: R V Patient Instructions: Continue havin 3 meals/day and 1-2 snack Continue including lean protein foods in each meal Choose low sodium seasonings - see list Coding Level of Care Code Nutr Indiv Subseq (90409) Diagnoses Type 2 diabetes mellitus without complications E11.9 Time Spent (min) 30
[2023-08-22 08:51] VITALS: BMI 29.5
== END 2023-08-22 09:23 | disposition home or self-care (01) ==
PROVIDERS: PCP Internal Medicine; Visit Provider Dietitian, Registered
DX: E11.9 Type 2 diabetes mellitus without complications (principal)

== ENCOUNTER → 2023-08-22 08:31 | Outpatient (BNVA) | payer MEDICARE, MEDICAID, SELFPAY | PROVIDERS: PCP Internal Medicine; Visit Provider Dietitian, Registered | DX: E11.9 Type 2 diabetes mellitus without complications (principal); Z71.3 Dietary counseling and surveillance | CPT/HCPCS: 97803 ==

== ENCOUNTER → 2023-09-21 10:47 | Outpatient (REF) | payer MEDICARE, MEDICAID, SELFPAY ==
--- NOTE | 2023-09-21 10:49 | CA_ITS ---
Acquisition Time: 2023-09-21 10:53:48 Total Exercise Time: 00:02:20 Test Indications: CP, SOB Medications: SEE H Protocol: MELYSSA Max HR: 112 BPM 75% of Pred: 149 BPM Max BP: 156/050 mmHG Max Work Load: 4.6 METS Exercise stress test exercise 2 min 20 sec of Melyssa protocol achieving 69% MPHR with request to stop due to body pain and shortness of breath with moderate SOB, no chest discomfort, without arrhythmias, with normotensive response to exercise, with nondiagnoisitic EKGs. Echo images obtained by tech at rest and immediately post peak exercies. Definity contrast use. Test reviewed [facility] Dr. Sexton Referred By: Jeremy Lomeli Overread By: Mary Kern
== END ==
LOC: HO.CARD 10:47
PROVIDERS: PCP Internal Medicine; Visit Provider Hospitalist
DX: R07.9 Chest pain, unspecified (principal); R06.09 Other forms of dyspnea
CPT/HCPCS: 93350; Q9957

== ENCOUNTER → 2023-09-21 10:49 | Outpatient (BNV) | payer MEDICARE, MEDICAID, SELFPAY | PROVIDERS: PCP Internal Medicine; Visit Provider Nurse Practitioner | DX: R06.02 Shortness of breath (principal); R07.9 Chest pain, unspecified | CPT/HCPCS: 93016; 93018; 93350; 93352 ==

== ENCOUNTER 2023-10-06 09:06 | Outpatient (AMB) | payer MEDICARE, MEDICAID, SELFPAY ==
[2023-10-06 09:13] VITALS: PULSE 69; O2SAT 98; BMI 30.1
--- NOTE | 2023-10-06 09:13 | MHC.OFFVIS ---
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: No Allergies acetaminophen [Percocet] Allergy (Severe, Verified 10/06/23 09:15) Vomitting and Diarrhea aspirin Allergy (Severe, Verified 10/06/23 09:15) Vomitting and Diarrhea oxycodone [Percocet] Allergy (Severe, Verified 10/06/23 09:15) Tachycardia and High Blood Pressure topiramate [Topamax] Allergy (Severe, Verified 10/06/23 09:15) Tachycardia and High Blood Pressure cyanocobalamin (vitamin B12) Allergy (Unknown, Verified 10/06/23 09:15) Vomitting and Diarrhea Amitriptyline Allergy (Severe, Uncoded 10/06/23 09:15) Tachycardia and High Blood Pressure latex- rash Allergy (Severe, Uncoded 10/06/23 09:15) Rash and Hives MigraLam Allergy (Severe, Uncoded 10/06/23 09:15) Vomitting and Diarrhea red meat Allergy (Severe, Uncoded 10/06/23 09:15) Vomitting and Diarrhea tomatoes, strawberrries Allergy (Severe, Uncoded 10/06/23 09:15) Vomitting and Diarrhea lactose intolerant Allergy (Unknown, Uncoded 10/06/23 09:15) vomitting and diarrhea HPI Comments Details: The patient is a 73-year-old woman with known obstructive sleep apnea history of pulmonary emboli in addition to asthma. More recently she has been dealing with significant eczema and other rashes. She was placed on Dupixent significantly improving her rash but also significant improving her breathing. She has been having issues with hoarseness. I explained to her that it may be the Anoro. She can stop the Anoro just to see if this is the culprit. In the meantime if the horses not too bad she continue the Anoro and continue to rinse with mouthwash rather water. Alvesco as a very good steroid typically does not resulting hoarseness or any thrush. She should be using it with spacer. 05/06/2021 the patient is here for a pulmonary follow-up visit. Since we last spoke many months ago she has been complaining of a chronic cough. The cough is nonproductive in nature. Usually worse at nighttime when she lays flat. Sometimes it does gag her. Sometimes she has a hard time eating because she feels like food is getting stuck while she is swallowing. Sometimes she also regurgitation food. We did briefly discuss the reflux diet and she is drinking about 4 or 5 cups of coffee a day. She is going to try to cut that down to at least a couple. In the meantime she is doing the rest the diet. We did talk about the small meals and making sure that she sleeps elevated and does not eat too late. In the meantime she did have a episode of chest pain that was evaluated at [facility]. She was briefly admitted. With a history of pulmonary emboli she did undergo a CT scan of the chest that we personally reviewed. It demonstrated that she had stable pulmonary nodules subcentimeter in nature when compared to 2016 and 2017. Therefore these are very benign nodules. She did have some air trapping was a pattern consistent with her significant asthma. As far as medications on her metoprolol was increased during that time because of the high blood pressure. Still explained to her that sometimes too much the beta fuentes can in the interrupted benefits of her respiratory medicines. The patient does have significant asthma. She is also complaining of headaches. She has been using her CPAP at nighttime. Will address the question with an overnight oximetry to make sure that she is not desaturating at nighttime. Patient also complaining of dyspnea on exertion. She has responded very well to her respiratory therapy. The patient will undergo pulmonary function studies when she returns. 07/19/2022 the patient is here for a pulmonary follow-up visit. The patient is doing a lot better. She still responding well to the immune suppression for her significant dermatitis. It is probably helping her asthma as well. She does continue her respiratory therapy but has not required a rescue inhaler. She has not required any prednisone which is reassuring. The patient did get her new CPAP machine. The APAP is set up 10-14 and her average pressure is 10. Therefore likely patient probably can tolerate a lower pressure specially with an AHI of 0.8. Will go ahead and decrease the pressure to 8-14. The patient still has a ramp of 6. She will continue using the current mask. She is getting supplies readily from the [employer]. Otherwise patient is without any other complaints. The patient will call if any other issues arise. She will follow-up in 6-8 months. 01/23/2023 the patient is here for pulmonary follow-up visit. The patient overall doing well from a respiratory status. She continues her respiratory medications with good adherence. She has not required any rescue medication and not required any prednisone. Although she has a trip planned to [place] and I will make sure she has medications that she can take in case the asthma starts worsening while she is there. The patient continues with CPAP therapy. CPAP therapy continues to be affecting beneficial. She does use for more than 4 hours a night. 08/07/2023 the patient is here for a pulmonary follow-up visit. Overall she is doing fair. She has been having issues with low oxygen levels. She does have a home pulse oximeter that sometimes she reads pulse ox in the 80s. She does get very cold hands however. Is not clear how accurate reading is. She also went to [facility] for a colonoscopy and also an upper endoscopy. Apparently she could back. The colonoscopy done because she did become hypoxic. I do not have the details of what happened. Indeed the patient was under some anesthesia effect and she does have underlying sleep apnea so the probably had a component. Will go ahead and request a chest x-ray at this time. The patient also describes some chest pressure especially when exercising. She did have an EKG at [facility] and she was told that it was okay. Will go ahead and request a cardiac stress echo to see if there is any cardiac component. She does continue on her Alvesco and also Anoro. Therapy has been affecting beneficial she denies any wheezing or coughing. She also continues uses CPAP at nighttime. The CPAP therapy again continues to be affecting beneficial. I did reassure her with a brief walking oximetry that her pulse ox was 99-100%. Heart rate was also stable. She is aware that if she is going to use her home pulse oximeter she needs to make sure that she has good perfusion to her extremities. 10/06/2023 the patient is here for a pulmonary follow-up visit. She is doing better this time. She did have a brief hospitalization at [facility]. She was having increasing dizziness and shortness of breath along with weakness. She was noted to have acute anemia. Iron deficiency. She is placed on iron. The patient also had other medication stop them have been contributing. Her ferritin level significantly low. Explained to her that with her anemia she could be experiencing some increasing dyspnea on exertion due to the decrease oxygen transport. In the meantime she continues use her respiratory therapy with good effect. She also continues to be on CPAP at nighttime. The CPAP therapy has been affecting beneficial. Prior to the hospitalization the patient did have a stress echo which is reassuring. And seems like her lupus is stable at this time. [facility] Medical History (Updated 08/07/23 @ 10:48 by Jeremy Lomeli MD) Limb swelling Discoid lupus COVID-19 Pulmonary nodules Chronic cough Chronic allergic rhinitis Atopic dermatitis RUCHI on CPAP Asthma-COPD overlap syndrome Surgical History (Updated 09/06/21 @ 22:35 by Jeremy Lomeli MD) Asthma Social History (Updated 11/11/20 @ 11:00 by CHAIM Romero) Patient Tobacco Use Status: Never used Tobacco Review of Systems Const Denies body aches, Denies difficulty sleeping and Denies malaise Eyes Denies change in vision ENT Denies change in voice Card Reports chest pain, Reports leg edema and Reports dyspnea on exertion Resp Reports dyspnea on exertion and Denies wheezing GI Denies constipation, Reports dyspepsia, Denies diarrhea, Denies nausea and Denies vomiting Musc Reports no additional complaints Skin/Breast Denies pruritus and Denies rash Endo Denies flushing Nba/Lymph Denies lymphadenopathy Aller/Immun Denies wheezing Physical Exam Vital Signs: Last Vital Signs Pulse 69 10/06/23 09:13 Pulse Ox 98 10/06/23 09:13 Oxygen Delivery Method Room Air 10/06/23 09:13 BMI result Body Mass Index 30.1 Const General: alert Orientation/consciousness: patient oriented x3 Neck Neck: Yes normal visual inspection, Yes full ROM and Yes no lymphadenopathy Chest Chest palpation & inspection: normal inspection of the chest Resp Effort & Inspection: normal respiratory effort Auscultation: no rales, no rhonchi, no wheezes and diminished lung sounds Cardio Rate: regular rate Rhythm: regular rhythm Heart sounds: S1 normal heart sound present and S2 normal heart sound present GI Palpation (GI): Soft to palpation and nontender Auscultation: normal bowel sounds Skin General skin exam: no rashes or lesions noted Neuro General: patient oriented x3 Extrem General: Yes no clubbing, cyanosis or edema Assessment & Plan Assessment & Plan (1) Dyspnea: Code(s): R06.00 - Dyspnea, unspecified Category: Medical Qualifiers: Dyspnea type: dyspnea on exertion Qualified Code(s): R06.09 - Other forms of dyspnea (2) Asthma-COPD overlap syndrome: Code(s): J44.9 - Chronic obstructive pulmonary disease, unspecified Category: Medical (3) RUCHI on CPAP: Code(s): G47.33 - Obstructive sleep apnea (adult) (pediatric); Z99.89 - Dependence on other enabling machines and devices Category: Medical (4) Chronic allergic rhinitis: Code(s): J30.9 - Allergic rhinitis, unspecified Category: Medical (5) Asthma: Code(s): J45.909 - Unspecified asthma, uncomplicated Category: Surgical Qualifiers: Asthma complication type: with acute exacerbation Asthma persistence: persistent Asthma severity: moderate Qualified Code(s): J45.41 - Moderate persistent asthma with (acute) exacerbation (6) Chronic cough: Code(s): R05.3 - Chronic cough Category: Medical (7) Pulmonary nodules: Comment: Stable for more than 5 years based on her CT scan from September 2020 Code(s): R91.8 - Other nonspecific abnormal finding of lung field Category: Medical (8) Discoid lupus: Code(s): L93.0 - Discoid lupus erythematosus Category: Medical (9) Chest pain: Code(s): R07.9 - Chest pain, unspecified Category: Medical Qualifiers: Chest pain type: unspecified Qualified Code(s): R07.9 - Chest pain, unspecified Plan Continue Anoro and Alvesco as prescribed AFTAB/nebulizer as needed Continue APAP therapy at night continue singulair monitor Anemia and ferritin levels. F/U 4-6 months Coding Level of Care Code Est Pt Level 4 (04957) Diagnoses Dyspnea on exertion R06.09 Dyspnea type: dyspnea on exertion Asthma-COPD overlap syndrome J44.9 RUCHI on CPAP G47.33; Z99.89 Chronic allergic rhinitis J30.9 Moderate persistent asthma with acute exacerbation J45.41 Asthma complication type: with acute exacerbation Asthma persistence: persistent Asthma severity: moderate Chronic cough R05.3 Pulmonary nodules R91.8 Discoid lupus L93.0 Chest pain, unspecified type R07.9 Chest pain type: unspecified Time Spent (min) 17
== END 2023-10-06 09:43 | disposition home or self-care (01) ==
PROVIDERS: PCP Internal Medicine; Visit Provider Hospitalist
DX: R06.09 Other forms of dyspnea (principal); J44.9 Chronic obstructive pulmonary disease, unspecified; G47.33 Obstructive sleep apnea (adult) (pediatric); Z99.89 Dependence on other enabling machines and devices; J30.9 Allergic rhinitis, unspecified; J45.41 Moderate persistent asthma with (acute) exacerbation; R05.3 Chronic cough; R91.8 Other nonspecific abnormal finding of lung field; L93.0 Discoid lupus erythematosus; R07.9 Chest pain, unspecified
CPT/HCPCS: 99214

== ENCOUNTER → 2023-10-06 09:06 | Outpatient (BNVA) | payer MEDICARE, MEDICAID, SELFPAY | PROVIDERS: PCP Internal Medicine; Visit Provider Hospitalist | DX: J44.9 Chronic obstructive pulmonary disease, unspecified (principal); J45.41 Moderate persistent asthma with (acute) exacerbation; J30.9 Allergic rhinitis, unspecified; R07.9 Chest pain, unspecified; R06.09 Other forms of dyspnea; R05.3 Chronic cough; R91.8 Other nonspecific abnormal finding of lung field; L93.0 Discoid lupus erythematosus; G47.33 Obstructive sleep apnea (adult) (pediatric); Z99.89 Dependence on other enabling machines and devices | CPT/HCPCS: 99212 ==

== ENCOUNTER 2024-02-05 07:37 | Outpatient (AMB) | payer OTHER, MEDICAID, SELFPAY ==
[2024-02-05 08:36] VITALS: BMI 29.0
--- NOTE | 2024-02-05 08:36 | A.OFFVIS_ITS ---
VS Expanded 02/05/24 08:36 Height 5 ft 3 in Weight 163 lb 9.328 oz BMI 29.0 Intake Visit Reasons: T2DM/LVM Allergies acetaminophen [Percocet] Allergy (Severe, Verified 10/06/23 09:15) Vomitting and Diarrhea aspirin Allergy (Severe, Verified 10/06/23 09:15) Vomitting and Diarrhea oxycodone [Percocet] Allergy (Severe, Verified 10/06/23 09:15) Tachycardia and High Blood Pressure topiramate [Topamax] Allergy (Severe, Verified 10/06/23 09:15) Tachycardia and High Blood Pressure cyanocobalamin (vitamin B12) Allergy (Unknown, Verified 10/06/23 09:15) Vomitting and Diarrhea Amitriptyline Allergy (Severe, Uncoded 10/06/23 09:15) Tachycardia and High Blood Pressure latex- rash Allergy (Severe, Uncoded 10/06/23 09:15) Rash and Hives MigraLam Allergy (Severe, Uncoded 10/06/23 09:15) Vomitting and Diarrhea red meat Allergy (Severe, Uncoded 10/06/23 09:15) Vomitting and Diarrhea tomatoes, strawberrries Allergy (Severe, Uncoded 10/06/23 09:15) Vomitting and Diarrhea lactose intolerant Allergy (Unknown, Uncoded 10/06/23 09:15) vomitting and diarrhea Nutrition Presentation Details: Pt presents for MNT f/u for T2DM Pt reports doing well, bg ranging from 90-120 in the fasting state and 130-160s post meals Pt reports having good appetite, having 3 meals per day , participating in [facility] activities as well as family activities. food frequency fish 1- 2times/wk vegetables: 2-3 x/wk (starchy and non starchy veget related to IBS symptoms) dairy: lactose free 3 + serving/d fruits: 1-2 (fruits/juices) starches > 18+ fried foods 0-1/wk reading food labels: yes mvi - yes physical activity: daily life activities BS Monitoring Most Recent Diabetes Results: No Data to Display CGU-[id number]-Mu.Jeor Equation Height: 5 ft 3 in Weight: 164 lb Resting Metabolic Rate: 1232.95 Calculated Activity Level: Mild Activity Calories Needed to Maintain Weight: 1695.31 [facility] Medical History (Updated 08/07/23 @ 10:48 by Jeremy Lomeli MD) Limb swelling Discoid lupus COVID-19 Pulmonary nodules Chronic cough Chronic allergic rhinitis Atopic dermatitis RUCHI on CPAP Asthma-COPD overlap syndrome Surgical History (Updated 09/06/21 @ 22:35 by Jeremy Lomeli MD) Asthma Social History (Updated 11/11/20 @ 11:00 by Magda Powers Radha) Patient Tobacco Use Status: Never used Tobacco Assessment & Plan Assessment & Plan (1) Type 2 diabetes mellitus without complications: Code(s): E11.9 - Type 2 diabetes mellitus without complications Category: Medical Plan: wt: 74 kg es kcal needs as per [place] sT Jeor:: [id number] Est fluid needs as per 25-30 ml/kg bw: 1800 -2200 ml/d. Na: < 2300 mg/d Fiber 10-12 g/d and gradual increase to 25 as tolerated Educated patient on: ( R = reviewed V = verbalizes understanding N/R = needs review N/A = not applicable * Food sources of carbohydrate, adequate serving sizes and its role in various health conditions: R V * Differences between complex carbohydrates a simple carbohydrates, role of fiber in diet: R V * Differences between types of fats and role in diet (mono on saturated fat fatty acids, saturated fatty acids, trans fats): R V * Food sources of sodium in salt and healthy modifications for heart health in kidney health: R V * Vitamins and minerals: R V * Healthy plate method concept: R V * Physical activity: Benefits a precaution: R V * Hypoglycemia protocol (rule of 15): R V * Dietary prevention of Hyperglycemia: R V Patient Instructions: Continue watching portion sizes as established Maintain physically activity as able Include lean protein in your meals , at least 3 oz (tofu, poultry, fish, nuts as examples) Coding Level of Care Code Nutr Indiv Subseq (12948) Diagnoses Type 2 diabetes mellitus without complications E11.9 Time Spent (min) 30
[2024-02-05 09:21] VITALS: BMI 29.0
== END 2024-02-05 09:10 | disposition home or self-care (01) ==
PROVIDERS: PCP Internal Medicine; Visit Provider Dietitian, Registered
DX: E11.9 Type 2 diabetes mellitus without complications (principal)

== ENCOUNTER → 2024-02-05 07:37 | Outpatient (BNVA) | payer MEDICARE, MEDICAID, SELFPAY | PROVIDERS: PCP Internal Medicine; Visit Provider Dietitian, Registered | DX: E11.9 Type 2 diabetes mellitus without complications (principal); Z71.3 Dietary counseling and surveillance | CPT/HCPCS: 97803 ==

== ENCOUNTER 2024-02-06 07:45 | Outpatient (AMB) | payer OTHER, SELFPAY ==
[2024-02-06 08:17] VITALS: BP 116/68; PULSE 65; O2SAT 96; BMI 29.3
--- NOTE | 2024-02-06 08:17 | MHC.OFFVIS ---
Vital Signs 02/06/24 08:17 Height 5 ft 3 in Weight 165 lb 5.547 oz BMI 29.3 BP 116/68 Blood Pressure Location Rt brachial Position Sitting Pulse 65 Pulse Source Pulse Oximeter Pulse Oximetry (%) 96 Oxygen Delivery Method Room Air Intake Visit Reasons: Asthma General Service Technician: General Service Technician offered & declined Accompanied by: Self / Same As Patient Allergies acetaminophen [Percocet] Allergy (Severe, Verified 02/06/24 08:20) Vomitting and Diarrhea aspirin Allergy (Severe, Verified 02/06/24 08:20) Vomitting and Diarrhea oxycodone [Percocet] Allergy (Severe, Verified 02/06/24 08:20) Tachycardia and High Blood Pressure topiramate [Topamax] Allergy (Severe, Verified 02/06/24 08:20) Tachycardia and High Blood Pressure cyanocobalamin (vitamin B12) Allergy (Unknown, Verified 02/06/24 08:20) Vomitting and Diarrhea valacyclovir Adverse Reaction (Severe, Verified 02/06/24 08:31) Hemolytic Anemia Amitriptyline Allergy (Severe, Uncoded 02/06/24 08:20) Tachycardia and High Blood Pressure latex- rash Allergy (Severe, Uncoded 02/06/24 08:20) Rash and Hives MigraLam Allergy (Severe, Uncoded 02/06/24 08:20) Vomitting and Diarrhea red meat Allergy (Severe, Uncoded 02/06/24 08:20) Vomitting and Diarrhea tomatoes, strawberrries Allergy (Severe, Uncoded 02/06/24 08:20) Vomitting and Diarrhea lactose intolerant Allergy (Unknown, Uncoded 02/06/24 08:20) vomitting and diarrhea Medication List - Last Reconciled 02/06/24 by Ml Miranda LPN albuterol sulfate 2.5 mg (3 mL) inhalation BID 30 days albuterol sulfate 90 mcg/actuation 2 inhalations inhalation Q6H PRN 30 days aspirin 81 mg PO DAILY atorvastatin mg PO benzonatate 200 mg PO BID PRN 30 days ciclesonide 160 mcg/actuation (Alvesco) 1 puff PO BID cyanocobalamin (vitamin B-12) ER (Vitamin B-12 ER) 1,000 mcg PO DAILY dextromethorphan-guaifenesin 60-1,200 mg ER (Mucinex DM) 1 tab PO Q12H 10 days dicyclomine 10 mg PO Q6H PRN duloxetine 60 mg PO BID estradiol 0.01%(0.1mg/gram) 1 g vaginal 2XW eszopiclone 3 mg PO BEDTIME famotidine 40 mg PO DAILY ferrous sulfate (FeroSul) mg PO fluconazole 100 mg PO DAILY furosemide (Lasix) 20 mg PO DAILY 3 days gabapentin mg PO ketoconazole 2% 1 appl topical 2XW metformin ER 1,000 mg PO BID metoprolol tartrate 50 mg PO BID mirabegron ER (Myrbetriq) 25 mg PO DAILY montelukast 10 mg PO BEDTIME rdlwtvch-ucx-ZK-lycopen-lutein 0.4 mg-300 mcg- 250 mcg (Spectravite Adult 50 Plus) 1 tab PO DAILY multivitamin 1 tab PO DAILY nebulizers As directed nystatin 1 appl topical BID nystatin (Nystop) topical omeprazole 40 mg PO DAILY oxymetazoline 0.05% (Afrin (oxymetazoline)) 2 sprays intranasal Q12H PRN 5 days sitagliptin phosphate 100 mg PO DAILY suvorexant (Belsomra) 20 mg PO BEDTIME tacrolimus 0.1% topical BID topiramate 25 mg PO DAILY umeclidinium-vilanterol 62.5-25 mcg/actuation (Anoro Ellipta) 1 ea PO DAILY upadacitinib ER (Rinvoq) 15 mg PO DAILY valsartan 40 mg PO DAILY Ventolin HFA 90 mcg/actuation (albuterol sulfate) 2 puffs inhalation Q6H PRN NS HPI Comments Details: The patient is a 73-year-old woman with known obstructive sleep apnea history of pulmonary emboli in addition to asthma. More recently she has been dealing with significant eczema and other rashes. She was placed on Dupixent significantly improving her rash but also significant improving her breathing. She has been having issues with hoarseness. I explained to her that it may be the Anoro. She can stop the Anoro just to see if this is the culprit. In the meantime if the horses not too bad she continue the Anoro and continue to rinse with mouthwash rather water. Alvesco as a very good steroid typically does not resulting hoarseness or any thrush. She should be using it with spacer. 05/06/2021 the patient is here for a pulmonary follow-up visit. Since we last spoke many months ago she has been complaining of a chronic cough. The cough is nonproductive in nature. Usually worse at nighttime when she lays flat. Sometimes it does gag her. Sometimes she has a hard time eating because she feels like food is getting stuck while she is swallowing. Sometimes she also regurgitation food. We did briefly discuss the reflux diet and she is drinking about 4 or 5 cups of coffee a day. She is going to try to cut that down to at least a couple. In the meantime she is doing the rest the diet. We did talk about the small meals and making sure that she sleeps elevated and does not eat too late. In the meantime she did have a episode of chest pain that was evaluated at [facility]. She was briefly admitted. With a history of pulmonary emboli she did undergo a CT scan of the chest that we personally reviewed. It demonstrated that she had stable pulmonary nodules subcentimeter in nature when compared to 2016 and 2017. Therefore these are very benign nodules. She did have some air trapping was a pattern consistent with her significant asthma. As far as medications on her metoprolol was increased during that time because of the high blood pressure. Still explained to her that sometimes too much the beta fuentes can in the interrupted benefits of her respiratory medicines. The patient does have significant asthma. She is also complaining of headaches. She has been using her CPAP at nighttime. Will address the question with an overnight oximetry to make sure that she is not desaturating at nighttime. Patient also complaining of dyspnea on exertion. She has responded very well to her respiratory therapy. The patient will undergo pulmonary function studies when she returns. 07/19/2022 the patient is here for a pulmonary follow-up visit. The patient is doing a lot better. She still responding well to the immune suppression for her significant dermatitis. It is probably helping her asthma as well. She does continue her respiratory therapy but has not required a rescue inhaler. She has not required any prednisone which is reassuring. The patient did get her new CPAP machine. The APAP is set up 10-14 and her average pressure is 10. Therefore likely patient probably can tolerate a lower pressure specially with an AHI of 0.8. Will go ahead and decrease the pressure to 8-14. The patient still has a ramp of 6. She will continue using the current mask. She is getting supplies readily from the [facility]. Otherwise patient is without any other complaints. The patient will call if any other issues arise. She will follow-up in 6-8 months. 01/23/2023 the patient is here for pulmonary follow-up visit. The patient overall doing well from a respiratory status. She continues her respiratory medications with good adherence. She has not required any rescue medication and not required any prednisone. Although she has a trip planned to [place] and I will make sure she has medications that she can take in case the asthma starts worsening while she is there. The patient continues with CPAP therapy. CPAP therapy continues to be affecting beneficial. She does use for more than 4 hours a night. 08/07/2023 the patient is here for a pulmonary follow-up visit. Overall she is doing fair. She has been having issues with low oxygen levels. She does have a home pulse oximeter that sometimes she reads pulse ox in the 80s. She does get very cold hands however. Is not clear how accurate reading is. She also went to [facility] for a colonoscopy and also an upper endoscopy. Apparently she could back. The colonoscopy done because she did become hypoxic. I do not have the details of what happened. Indeed the patient was under some anesthesia effect and she does have underlying sleep apnea so the probably had a component. Will go ahead and request a chest x-ray at this time. The patient also describes some chest pressure especially when exercising. She did have an EKG at [facility] and she was told that it was okay. Will go ahead and request a cardiac stress echo to see if there is any cardiac component. She does continue on her Alvesco and also Anoro. Therapy has been affecting beneficial she denies any wheezing or coughing. She also continues uses CPAP at nighttime. The CPAP therapy again continues to be affecting beneficial. I did reassure her with a brief walking oximetry that her pulse ox was 99-100%. Heart rate was also stable. She is aware that if she is going to use her home pulse oximeter she needs to make sure that she has good perfusion to her extremities. 10/06/2023 the patient is here for a pulmonary follow-up visit. She is doing better this time. She did have a brief hospitalization at [facility]. She was having increasing dizziness and shortness of breath along with weakness. She was noted to have acute anemia. Iron deficiency. She is placed on iron. The patient also had other medication stop them have been contributing. Her ferritin level significantly low. Explained to her that with her anemia she could be experiencing some increasing dyspnea on exertion due to the decrease oxygen transport. In the meantime she continues use her respiratory therapy with good effect. She also continues to be on CPAP at nighttime. The CPAP therapy has been affecting beneficial. Prior to the hospitalization the patient did have a stress echo which is reassuring. And seems like her lupus is stable at this time. 02/06/2024 the patient is here for pulmonary follow-up visit. Overall she is doing well from a respiratory status she had a [facility] care where she became significantly short of breath and dizzy. She went to see her primary care doctor who called the ambulance and she went to [facility]. 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 Likely secondary to a antiviral medications she was taking. Therefore the antiviral medication was stopped, valacyclovir. Subsequently after that she was qualify with iron in her hemoglobin has steadily increased now to 11. The patient is feeling better. More respiratory status she is continue in the Alvesco in addition to the Anoro. She has also has her albuterol inhaler. She has not required, but, now going into the winter time will make sure that she has all her medications available. We did look at her CT scan of the chest that she had at [facility]. It was a CTA that ruled out PE. She does have stable pulmonary nodules that are subcentimeter in size. She also has a slight area of haziness suggesting atelectasis bilaterally. In addition to that the patient does have a mosaic pattern consistent with air trapping an asthma. Therefore no additional testing warranted at this time but will continue to monitor. Will follow-up in 6 months. If any issues arise she will call for an earlier asthma. [facility] Medical History (Updated 08/07/23 @ 10:48 by Jeremy Lomeli MD) Limb swelling Discoid lupus COVID-19 Pulmonary nodules Chronic cough Chronic allergic rhinitis Atopic dermatitis RUCHI on CPAP Asthma-COPD overlap syndrome Surgical History (Updated 09/06/21 @ 22:35 by Jeremy Lomeli MD) Asthma Social History Patient Tobacco Use Status: Never used Tobacco Review of Systems Const Denies body aches, Denies difficulty sleeping and Denies malaise Eyes Denies change in vision ENT Denies change in voice Card Reports chest pain, Reports leg edema and Reports dyspnea on exertion Resp Reports dyspnea on exertion and Denies wheezing GI Denies constipation, Reports dyspepsia, Denies diarrhea, Denies nausea and Denies vomiting Musc Reports no additional complaints Skin/Breast Denies pruritus and Denies rash Endo Denies flushing Nba/Lymph Denies lymphadenopathy Aller/Immun Denies wheezing Physical Exam Vital Signs: Last Vital Signs Pulse 65 02/06/24 08:17 BP 116/68 02/06/24 08:17 Pulse Ox 96 02/06/24 08:17 Oxygen Delivery Method Room Air 02/06/24 08:17 BMI result Body Mass Index 29.3 Const General: alert Orientation/consciousness: patient oriented x3 Neck Neck: Yes normal visual inspection, Yes full ROM and Yes no lymphadenopathy Chest Chest palpation & inspection: normal inspection of the chest Resp Effort & Inspection: normal respiratory effort Auscultation: no rales, no rhonchi, no wheezes and diminished lung sounds Cardio Rate: regular rate Rhythm: regular rhythm Heart sounds: S1 normal heart sound present and S2 normal heart sound present GI Palpation (GI): Soft to palpation and nontender Auscultation: normal bowel sounds Skin General skin exam: no rashes or lesions noted Neuro General: patient oriented x3 Extrem General: Yes no clubbing, cyanosis or edema Assessment & Plan Assessment & Plan (1) Dyspnea: Code(s): R06.00 - Dyspnea, unspecified Category: Medical Qualifiers: Dyspnea type: dyspnea on exertion Qualified Code(s): R06.09 - Other forms of dyspnea (2) Asthma-COPD overlap syndrome: Code(s): J44.9 - Chronic obstructive pulmonary disease, unspecified Category: Medical (3) RUCHI on CPAP: Code(s): G47.33 - Obstructive sleep apnea (adult) (pediatric); Z99.89 - Dependence on other enabling machines and devices Category: Medical (4) Chronic allergic rhinitis: Code(s): J30.9 - Allergic rhinitis, unspecified Category: Medical (5) Asthma: Code(s): J45.909 - Unspecified asthma, uncomplicated Category: Surgical Qualifiers: Asthma complication type: with acute exacerbation Asthma persistence: persistent Asthma severity: moderate Qualified Code(s): J45.41 - Moderate persistent asthma with (acute) exacerbation (6) Chronic cough: Code(s): R05.3 - Chronic cough Category: Medical (7) Pulmonary nodules: Comment: Stable for more than 5 years based on her CT scan from September 2020 Code(s): R91.8 - Other nonspecific abnormal finding of lung field Category: Medical (8) Discoid lupus: Code(s): L93.0 - Discoid lupus erythematosus Category: Medical (9) Chest pain: Code(s): R07.9 - Chest pain, unspecified Category: Medical Qualifiers: Chest pain type: unspecified Qualified Code(s): R07.9 - Chest pain, unspecified Plan Continue Anoro and Alvesco as prescribed AFTAB/nebulizer as needed Continue APAP therapy at night continue singulair monitor Anemia and ferritin levels. F/U 4-6 months Medications: New doxycycline monohydrate 100 mg PO BID 28 tabs 0RF 14 days prednisone PO daily; Take 2 tabs daily x 5 days, then 1 tablet daily x 5 days 15 tabs 0RF 10 days Refilled Ventolin HFA 90 mcg/actuation (albuterol sulfate) 2 puffs inhalation Q6H PRN 18 grams 11RF shortness of breath or wheezing NS albuterol sulfate 90 mcg/actuation 2 inhalations inhalation Q6H PRN 18 grams 12RF shortness of breath or wheezing 30 days J44.9 - Chronic obstructive pulmonary disease, unspecified ciclesonide 160 mcg/actuation (Alvesco) 1 puff PO BID 18.3 ea 11RF umeclidinium-vilanterol 62.5-25 mcg/actuation (Anoro Ellipta) 1 ea PO DAILY 60 ea 0RF Coding Level of Care Code Est Pt Level 4 (31836) Diagnoses Dyspnea on exertion R06.09 Dyspnea type: dyspnea on exertion Asthma-COPD overlap syndrome J44.9 RUCHI on CPAP G47.33; Z99.89 Chronic allergic rhinitis J30.9 Moderate persistent asthma with acute exacerbation J45.41 Asthma complication type: with acute exacerbation Asthma persistence: persistent Asthma severity: moderate Chronic cough R05.3 Pulmonary nodules R91.8 Discoid lupus L93.0 Chest pain, unspecified type R07.9 Chest pain type: unspecified Time Spent (min) 16
== END 2024-02-06 08:47 | disposition home or self-care (01) ==
PROVIDERS: PCP Internal Medicine; Visit Provider Hospitalist
DX: R06.09 Other forms of dyspnea (principal); J44.9 Chronic obstructive pulmonary disease, unspecified; G47.33 Obstructive sleep apnea (adult) (pediatric); Z99.89 Dependence on other enabling machines and devices; J30.9 Allergic rhinitis, unspecified; J45.41 Moderate persistent asthma with (acute) exacerbation; R05.3 Chronic cough; R91.8 Other nonspecific abnormal finding of lung field; L93.0 Discoid lupus erythematosus; R07.9 Chest pain, unspecified
CPT/HCPCS: 99214

== ENCOUNTER → 2024-02-06 07:45 | Outpatient (BNVA) | payer MEDICARE, MEDICAID, SELFPAY | PROVIDERS: PCP Internal Medicine; Visit Provider Hospitalist | DX: J44.9 Chronic obstructive pulmonary disease, unspecified (principal); J45.41 Moderate persistent asthma with (acute) exacerbation; R06.09 Other forms of dyspnea; G47.33 Obstructive sleep apnea (adult) (pediatric); J30.9 Allergic rhinitis, unspecified; R05.3 Chronic cough; R91.8 Other nonspecific abnormal finding of lung field; L93.0 Discoid lupus erythematosus; R07.9 Chest pain, unspecified; Z99.89 Dependence on other enabling machines and devices | CPT/HCPCS: 99212 ==

== ENCOUNTER 2024-08-05 07:45 | Outpatient (AMB) | payer OTHER, SELFPAY ==
--- OUTSIDE RECORDS SUMMARY | 2024-08-05 07:49 | XMS_ITS | Clinical Summary ---
Author Organization [facility] ity Address [address] [place] [address] Care Team Providers Care Cobol Application Developer Name Role Phone Myla Taylor MD Primary Care Provider [phone] Surgical History Surgery Date Site/Laterality Comments TOTAL KNEE ARTHROPLASTY Bilateral PROCEDURE: HISTORICAL TOTAL KNEE REPLACE; COMMENT: 1999, 2013 HYSTERECTOMY 1979 PROCEDURE: HISTORICAL HYSTERECTOMY APPENDECTOMY 1969 PROCEDURE: HISTORICAL APPENDECTOMY OTHER SURGICAL HISTORY PROCEDURE: PULMONOLOGY BRONCHOSCOPY BLADDER SURGERY PROCEDURE: HISTORICAL BLADDER SURGERY; COMMENT: stimulator implant Medical History Medical History Date Comments Asthma 02/08/2017 DX:Asthma RUCHI on CPAP 02/08/2017 DX:RUCHI on CPAP History of pulmonary embolus (PE) 11/15/2016 DX:History of pulmonary embolus (PE) Allergic rhinitis 06/20/2017 DX:Allergic rh initis Hyperlipidemia 06/20/2017 DX:Hyperlipidemi a 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 Hypertension 06/20/2017 DX:Hypertension Fibromyalgia 06/20/2017 DX:Fibromyalgia Peripheral neuropathy 06/20/2017 DX:Periphe ral neuropathy Diabetes mellitus type 2 wit h neurological manifestations (CMS/HCC V24, CMS/HCC V28) 06/20/2017 DX:Diabetes mellitus type 2 with neurological manifestations (HCC) Irritable bowel syndrome (IBS) 06/20/2017 D X:Irritable bowel syndrome (IBS) Psoriasis 06/20/2017 DX:Psoriasis History of pneumonia 06/20/2017 DX:History of pneumonia History of phlebitis 06/20/2017 DX:History of phlebitis Osteoarthritis, generalized 06/20/2017 DX:O steoarthritis, generalized History of deep vein thrombosis 06/20/2017 DX:History of deep vein thrombosis History of knee replacement, total 06/20/2017 DX:History of knee replacement, total Oral phase dysphagia 06/20/2017 DX:Oral pha se dysphagia Social History Tobacco Use Types Packs/Day Years Used Date Smoking Tobacco: Never Smokeless Tobacco: Never Alcohol Use Standard Drinks/Week Comments No 0 (1 standard drink = 0.6 oz pur e alcohol) Comments Unknown Sex and Gender Information Value Date Recorded Sex Assigned at Not on file Legal Sex Female 6:16 AM EST Gender Identity Not on file Sexual Orientation Not on file Obstetrics History Plan of Treatment Health Maintenance Due Date Last Done Comments Diabetes: Annual GFR (Glomerular Filtration Rate) 1950 Diabetes: Annual Foot Exam 1962 Diabetes: Annual Retina Eye Exam 1962 DTaP,Tdap,and Td Vaccines (1 - Tdap) 08/24/1971 Pneumococcal Vaccine: 50+ Years (1 of 2 - PCV) 08/24/1971 Zoster Vaccines (1 of 2) 2002 RSV Immunization Adult Patients (1 - Risk 60-74 years 1-dose series) 2012 Cholesterol Screening (Lipid Panel) 02/06/2022 Colorectal Cancer Screening: Colonoscopy 02/06/2022 Depression Screening 02/06/2022 Falls Risk Assessment 02/06/2022 Hepatitis C Screening 02/06/2022 Social Influencers of Health Screening 02/06/2022 Diabetes: Annual Urine Albumin-Creatinine Ratio (uACR) 02/15/2022 Diabetes: Blood Sugar Control Test (HGBA1C) 02/15/2022 Hypertension/CHF/CAD Annual BMP Blood Test 02/15/2022 COVID-19 Vaccine ( season) 2023 Influenza Vaccine (Season Ended) 2024 12/21/2017 Breast Cancer Screening 12/03/2025 12/04/19 24, 11/30/2022, 11/26/2021, Additional history exists Osteoporosis Screening (Bone Density Screening) 08/01/2028 08/01/2018 HIB Vaccines Aged Out No longer eligi ble based on patient's age to complete this topic HPV Vaccines Aged Out No longer eligi ble based on patient's age to complete this topic Hepatitis A Vaccines Aged Out No long er eligible based on patient's age to complete this topic Hepatitis B Vaccines Aged Out No long er eligible based on patient's age to complete this topic IPV Vaccines Aged Out No longer eligi ble based on patient's age to complete this topic MMR Vaccines Aged Out No longer eligi ble based on patient's age to complete this topic Meningococcal ACWY Vaccine Aged Out N o longer eligible based on patient's age to complete this topic Meningococcal B Vaccine Aged Out No l onger eligible based on patient's age to complete this topic RSV Immunization Patients Under 20 months Aged Out No longer eligible based on patient's age to complete this topic Varicella Vaccines Aged Out No longer eligible based on patient's age to complete this topic Procedures Procedure Name Priority Date/Time Associated Diagnosis Comments MATIAS SCREENING DIGITAL Routine 12/04/2023 12:48 PM EDT [facility] DEXA AXIAL SKELETON Routine 08/01/2018 8:57 AM EDT Asymptomatic menopausal state from Last 3 Months or Most Recently Relevant to Health Maintenance Results * MATIAS SCREENING DIGITAL (12/04/2023 12:48 PM EDT) Anatomical Region Laterality Modality Mammography 12/04/2023 8:35 AM EDT Narrative 12/04/2023 12:48 PM EDT [facility] Diagnostic Imaging Department [address] [place], [place] [id number] Patient: ??ALEXYS WILEY ?/Age/Sex: 1950 - 73 - F Unit#: ??[id number] ? Location/Status: ??SPDIMAM/REG CLI ? Mnemonic/Ordering Site: ??DIGSC/SPMAM Ordering Physician: ??LAURA GTZ DO [facility] Screening Digital - 12/04/23 - 904 Report Status:Signed EXAM: [facility] Screening Digital EXAM DATE AND TIME: 12/04/2023 9:05 AM HISTORY: ??Screening. COMPARISON: ??11/30/22, 11/26/21, 11/23/20 TECHNIQUE: Bilateral digital breast tomosynthesis was performed in the CC and MLO projections. Computer aided detection with RemitDATA 3D 3.1 was employed. TISSUE DENSITY: a. The breasts are almost entirely fatty. FINDINGS: No suspicious masses, grouped microcalcifications, or areas of architectural distortion are seen. Scattered microcalcifications are again seen. The skin and vascularity are unremarkable. IMPRESSION: Stable mammographic appearance of the breasts. ??No evidence of malignancy is seen. A negative mammogram in the presence of a clinically suspicious palpable abnormality does not preclude the possibility of malignancy or alter the indications for biopsy. BI-RADS: ??Category 2: Benign RECOMMENDATION(S): 1: Routine screening mammogram BILATERAL in 1 year. [facility] at [facility] [address] [place] [address] Dictating Physician: ??KARLA HALEY MD Electronically Signed by: ??KARLA HALEY MD Dic Date/Time: ??12/04/23 1247 Sign date/Time: ??12/04/23 1248 Procedure Note Karla Haley MD - 12/20/2023 [facility] Diagnostic Imaging Department [address] [place] [address] Patient: ALEXYS WILEY/Age/Sex: 1950 - 73 - F Unit#: [id number] Location/Status: SPDIMAM/REG CLI Mnemonic/Ordering Site: [facility] Ordering Physician: LAURA GTZ DO [facility] Screening Digital - 12/04/23 - 904 Report Status:Signed EXAM: [facility] Screening Digital EXAM DATE AND TIME: 12/04/2023 9:05 AM HISTORY: Screening. COMPARISON: 11/30/22, 11/26/21, 11/23/20 TECHNIQUE: Bilateral digital breast tomosynthesis was performed in the CCand MLO projections. Computer aided detection with RemitDATA 3D 3.1was employed. TISSUE DENSITY: a. The breasts are almost entirely fatty. FINDINGS: No suspicious masses, grouped microcalcifications, or areas ofarchitectural distortion are seen. Scattered microcalcifications are again seen. Theskin and vascularity are unremarkable. IMPRESSION: Stable mammographic appearance of the breasts. No evidence of malignancyis seen. A negative mammogram in the presence of a clinically suspicious palpable abnormality does not preclude the possibility of malignancy or alter the indications for biopsy. BI-RADS: Category 2: Benign RECOMMENDATION(S): 1: Routine screening mammogram BILATERAL in 1 year. Mammogram performed at [facility] [place] [address] Dictating Physician: KARLA HALEY MD Electronically Signed by: KARLA HALEY MD Dic Date/Time: 12/04/23 1247 Sign date/Time: 12/04/23 1248 Laura Gtz DO IMG BI PROCEDURES Final Resul t * MATIAS DEXA AXIAL SKELETON (08/01/2018 8:57 AM EDT) Anatomical Region Laterality Modality Mammography 08/01/2018 7:40 AM EDT Narrative 08/01/2018 8:57 AM EDT [facility] Diagnostic Imaging Department [address] [place] [id number] Patient: ??ALEXYS WILEY G ?/Age/Sex: 1950 - 67 - F Unit#: ??[id number] ? [facility] Mnemonic/Ordering Site: ??MAMDEXAAX/SPMAM Ordering Physician: ??FRANCISCA BUNDY MD [facility] Dexa Axial Skeleton - 08/01/18848 HISTORY: ??The patient is a 67-year-old postmenopausal female on chronic glucocorticoid therapy, with clinical concern for metabolic bone disease. FINDINGS: ??Dual energy x-ray absorptiometry of the lumbar spine and femurs is performed. The mean bone mineral density at L1-L4 is 1.248 gm/cm2 which is 106% of that of young normals and 121% of that of age matched controls. This yields a T-score of 0.6 and a Z-score of 1.8 and there is therefore no evidence of osteoporosis or osteopenia here. The mean bone mineral density of the femurs bilaterally is 1.237 gm/cm2 which is 123% of that of young normals and 140% of that of age matched controls. ??This yields a T-score of 1.8 and a Z-score of 2.8 and there is therefore no evidence of osteoporosis or osteopenia here. IMPRESSION: 1. There is no evidence of osteoporosis or osteopenia. ??There has been a decrease of 1.0% in bone mineral density in the lumbar spine since the prior examination of 09/10/2013. ??There has been a decrease of 1.3% in bone mineral density in the right femur and an increase of 3.2% in bone mineral density in the left femur. 2. FRAX analysis yields a 10-year probability of major osteoporotic fracture of 9.5% and a 10-year probability of hip fracture of 0.3%. Code 88503 Dictating Physician: ??CHASITY MANZANO MD Electronically Signed by: ??CHASITY MANZANO MD Dic Date/Time: ??08/01/18 0855 Sign date/Time: ??08/01/18 0857 Procedure Note Chasity Manzano - 02/22/2022 [facility] Diagnostic Imaging Department [address] [place] [address] Patient: SAURABHALEXYS D.O.B./Age/Sex: 1950 - 67 - F Unit#: [id number] Location/Status: [facility] Ordering Physician: FRANCISCA BUNDY MD [facility] Dexa Axial Skeleton - 08/01/18848 HISTORY: The patient is a 67-year-old postmenopausal female on chronic glucocorticoid therapy, with clinical concern for metabolic bonedisease. FINDINGS: Dual energy x-ray absorptiometry of the lumbar spine and femursis performed. The mean bone mineral density at L1-L4 is 1.248 gm/cm2 which is106% of that of young normals and 121% of that of age matched controls. Thisyields a T-score of 0.6 and a Z-score of 1.8 and there is therefore no evidenceof osteoporosis or osteopenia here. The mean bone mineral density of the femurs bilaterally is 1.237 gm/nh6ojicx is 123% of that of young normals and 140% of that of age matched controls.This yields a T-score of 1.8 and a Z-score of 2.8 and there is therefore noevidence of osteoporosis or osteopenia here. IMPRESSION: 1. There is no evidence of osteoporosis or osteopenia. There has been a decrease of 1.0% in bone mineral density in the lumbar spine since theprior examination of 09/10/2013. There has been a decrease of 1.3% in bonemineral density in the right femur and an increase of 3.2% in bone mineral densityin the left femur. 2. FRAX analysis yields a 10-year probability of major osteoporoticfracture of 9.5% and a 10-year probability of hip fracture of 0.3%. Code 58460 Dictating Physician: CHASITY MANZANO MD Electronically Signed by: CHASITY MANZANO MD Dic Date/Time: 08/01/18 0855 Sign date/Time: 08/01/18 0857 Francisca Bundy MD IMG BI PROCEDURES Final Result from Last 3 Months or Most Recently Relevant to Health Maintenance Care Teams Cobol Application Developer Relationship Specialty Start Date End Date Myla Taylor MD [address] [place] [address] PCP - General Internal Medicine 07/15/13
--- NOTE | 2024-08-05 08:08 | MHC.OFFVIS ---
Vital Signs 08/05/24 08:09 Height 5 ft 3 in Weight 167 lb 8.821 oz BMI 29.7 BP 156/70 H Blood Pressure Location Rt brachial Position Sitting Pulse 62 Pulse Source Pulse Oximeter Pulse Oximetry (%) 100 Oxygen Delivery Method Room Air Intake Visit Reasons: Asthma Allergies acetaminophen [Percocet] Allergy (Severe, Verified 08/05/24 08:12) Vomitting and Diarrhea oxycodone [Percocet] Allergy (Severe, Verified 08/05/24 08:12) Tachycardia and High Blood Pressure topiramate [Topamax] Allergy (Severe, Verified 08/05/24 08:12) Tachycardia and High Blood Pressure cyanocobalamin (vitamin B12) Allergy (Unknown, Verified 08/05/24 08:12) Vomitting and Diarrhea valacyclovir Adverse Reaction (Severe, Verified 08/05/24 08:12) Hemolytic Anemia Amitriptyline Allergy (Severe, Uncoded 08/05/24 08:12) Tachycardia and High Blood Pressure latex- rash Allergy (Severe, Uncoded 08/05/24 08:12) Rash and Hives MigraLam Allergy (Severe, Uncoded 08/05/24 08:12) Vomitting and Diarrhea red meat Allergy (Severe, Uncoded 08/05/24 08:12) Vomitting and Diarrhea tomatoes, strawberrries Allergy (Severe, Uncoded 08/05/24 08:12) Vomitting and Diarrhea lactose intolerant Allergy (Unknown, Uncoded 08/05/24 08:12) vomitting and diarrhea HPI Comments Details: The patient is a 73-year-old woman with known obstructive sleep apnea history of pulmonary emboli in addition to asthma. More recently she has been dealing with significant eczema and other rashes. She was placed on Dupixent significantly improving her rash but also significant improving her breathing. She has been having issues with hoarseness. I explained to her that it may be the Anoro. She can stop the Anoro just to see if this is the culprit. In the meantime if the horses not too bad she continue the Anoro and continue to rinse with mouthwash rather water. Alvesco as a very good steroid typically does not resulting hoarseness or any thrush. She should be using it with spacer. 05/06/2021 the patient is here for a pulmonary follow-up visit. Since we last spoke many months ago she has been complaining of a chronic cough. The cough is nonproductive in nature. Usually worse at nighttime when she lays flat. Sometimes it does gag her. Sometimes she has a hard time eating because she feels like food is getting stuck while she is swallowing. Sometimes she also regurgitation food. We did briefly discuss the reflux diet and she is drinking about 4 or 5 cups of coffee a day. She is going to try to cut that down to at least a couple. In the meantime she is doing the rest the diet. We did talk about the small meals and making sure that she sleeps elevated and does not eat too late. In the meantime she did have a episode of chest pain that was evaluated at [facility]. She was briefly admitted. With a history of pulmonary emboli she did undergo a CT scan of the chest that we personally reviewed. It demonstrated that she had stable pulmonary nodules subcentimeter in nature when compared to 2016 and 2017. Therefore these are very benign nodules. She did have some air trapping was a pattern consistent with her significant asthma. As far as medications on her metoprolol was increased during that time because of the high blood pressure. Still explained to her that sometimes too much the beta fuentes can in the interrupted benefits of her respiratory medicines. The patient does have significant asthma. She is also complaining of headaches. She has been using her CPAP at nighttime. Will address the question with an overnight oximetry to make sure that she is not desaturating at nighttime. Patient also complaining of dyspnea on exertion. She has responded very well to her respiratory therapy. The patient will undergo pulmonary function studies when she returns. 07/19/2022 the patient is here for a pulmonary follow-up visit. The patient is doing a lot better. She still responding well to the immune suppression for her significant dermatitis. It is probably helping her asthma as well. She does continue her respiratory therapy but has not required a rescue inhaler. She has not required any prednisone which is reassuring. The patient did get her new CPAP machine. The APAP is set up 10-14 and her average pressure is 10. Therefore likely patient probably can tolerate a lower pressure specially with an AHI of 0.8. Will go ahead and decrease the pressure to 8-14. The patient still has a ramp of 6. She will continue using the current mask. She is getting supplies readily from the [employer]. Otherwise patient is without any other complaints. The patient will call if any other issues arise. She will follow-up in 6-8 months. 01/23/2023 the patient is here for pulmonary follow-up visit. The patient overall doing well from a respiratory status. She continues her respiratory medications with good adherence. She has not required any rescue medication and not required any prednisone. Although she has a trip planned to [place] and I will make sure she has medications that she can take in case the asthma starts worsening while she is there. The patient continues with CPAP therapy. CPAP therapy continues to be affecting beneficial. She does use for more than 4 hours a night. 08/07/2023 the patient is here for a pulmonary follow-up visit. Overall she is doing fair. She has been having issues with low oxygen levels. She does have a home pulse oximeter that sometimes she reads pulse ox in the 80s. She does get very cold hands however. Is not clear how accurate reading is. She also went to [facility] for a colonoscopy and also an upper endoscopy. Apparently she could back. The colonoscopy done because she did become hypoxic. I do not have the details of what happened. Indeed the patient was under some anesthesia effect and she does have underlying sleep apnea so the probably had a component. Will go ahead and request a chest x-ray at this time. The patient also describes some chest pressure especially when exercising. She did have an EKG at [facility] and she was told that it was okay. Will go ahead and request a cardiac stress echo to see if there is any cardiac component. She does continue on her Alvesco and also Anoro. Therapy has been affecting beneficial she denies any wheezing or coughing. She also continues uses CPAP at nighttime. The CPAP therapy again continues to be affecting beneficial. I did reassure her with a brief walking oximetry that her pulse ox was 99-100%. Heart rate was also stable. She is aware that if she is going to use her home pulse oximeter she needs to make sure that she has good perfusion to her extremities. 10/06/2023 the patient is here for a pulmonary follow-up visit. She is doing better this time. She did have a brief hospitalization at [facility]. She was having increasing dizziness and shortness of breath along with weakness. She was noted to have acute anemia. Iron deficiency. She is placed on iron. The patient also had other medication stop them have been contributing. Her ferritin level significantly low. Explained to her that with her anemia she could be experiencing some increasing dyspnea on exertion due to the decrease oxygen transport. In the meantime she continues use her respiratory therapy with good effect. She also continues to be on CPAP at nighttime. The CPAP therapy has been affecting beneficial. Prior to the hospitalization the patient did have a stress echo which is reassuring. And seems like her lupus is stable at this time. 02/06/2024 the patient is here for pulmonary follow-up visit. Overall she is doing well from a respiratory status she had a [facility] where she became significantly short of breath and dizzy. She went to see her primary care doctor who called the ambulance and she went to [facility]. 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 Likely secondary to a antiviral medications she was taking. Therefore the antiviral medication was stopped, valacyclovir. Subsequently after that she was qualify with iron in her hemoglobin has steadily increased now to 11. The patient is feeling better. More respiratory status she is continue in the Alvesco in addition to the Anoro. She has also has her albuterol inhaler. She has not required, but, now going into the winter time will make sure that she has all her medications available. We did look at her CT scan of the chest that she had at [facility]. It was a CTA that ruled out PE. She does have stable pulmonary nodules that are subcentimeter in size. She also has a slight area of haziness suggesting atelectasis bilaterally. In addition to that the patient does have a mosaic pattern consistent with air trapping an asthma. Therefore no additional testing warranted at this time but will continue to monitor. Will follow-up in 6 months. If any issues arise she will call for an earlier asthma. 08/05/2024 the patient is here for pulmonary follow-up visit. Overall she is doing fair. The patient has had issues with her CPAP. Since hard time tolerating it. Her AHI is up to 11 even on the proper settings. Unfortunately she also has significant high blood pressure and difficult to control and also had significant daytime drowsiness with an [place] score elevated 11/24. Therefore she continues to have significant symptoms in regards to her sleep apnea. I will have her get a titration study to adequately treat her sleep apnea at this time. In the meantime she is complaining of some chest discomfort. She states that she was evaluated from a cardiac standpoint was okay. Will go and have her get a chest x-ray. Respiratory kwan she is doing okay. Although she is having a cough persistent and also hoarseness for the last 2 months. She attributes it to allergies. She does have significant postnasal drip with some purulent secretions. Likely chronic sinusitis. In addition to that she is using inhaled corticosteroid. Will have her get a spacer in order to minimize the irritation to the vocal cords. Will reassess in 3 months when she comes back. In the meantime will go ahead and treat her for her allergies and for sinusitis. Will have her get a chest x-ray and also sinus x-rays when she is able to do so. She has any worsening symptoms she will call otherwise will follow-up in 3 months to follow-up with her imaging studies and also her sleep study. [facility] Medical History (Updated 08/05/24 @ 08:44 by Jeremy Lomeli MD) Hypertension Limb swelling Discoid lupus COVID-19 Pulmonary nodules Chronic cough Chronic allergic rhinitis Atopic dermatitis RUCHI on CPAP Asthma-COPD overlap syndrome Surgical History (Updated 09/06/21 @ 22:35 by Jeremy Lomeli MD) Asthma Social History Patient Tobacco Use Status: Never used Tobacco Review of Systems Const Denies body aches, Reports daytime sleepiness, Reports difficulty sleeping and Denies malaise Eyes Denies change in vision ENT Denies change in voice and Reports hoarseness Card Reports chest pain, Reports leg edema and Reports dyspnea on exertion Resp Reports cough, Reports dyspnea on exertion and Denies wheezing GI Denies constipation, Reports dyspepsia, Denies diarrhea, Denies nausea and Denies vomiting Musc Reports no additional complaints Skin/Breast Denies pruritus and Denies rash Endo Denies flushing Nba/Lymph Denies lymphadenopathy Aller/Immun Denies wheezing Physical Exam Vital Signs: Last Vital Signs Pulse 62 08/05/24 08:09 BP 156/70 H 08/05/24 08:09 Pulse Ox 100 08/05/24 08:09 Oxygen Delivery Method Room Air 08/05/24 08:09 BMI result Body Mass Index 29.7 Const General: alert Orientation/consciousness: patient oriented x3 Neck Neck: Yes normal visual inspection, Yes full ROM and Yes no lymphadenopathy Chest Chest palpation & inspection: normal inspection of the chest Resp Effort & Inspection: normal respiratory effort Auscultation: no rales, no rhonchi, no wheezes and diminished lung sounds Cardio Rate: regular rate Rhythm: regular rhythm Heart sounds: S1 normal heart sound present and S2 normal heart sound present GI Palpation (GI): Soft to palpation and nontender Auscultation: normal bowel sounds Skin General skin exam: no rashes or lesions noted Neuro General: patient oriented x3 Extrem General: Yes no clubbing, cyanosis or edema Assessment & Plan Assessment & Plan (1) Dyspnea: Code(s): R06.00 - Dyspnea, unspecified Category: Medical Qualifiers: Dyspnea type: dyspnea on exertion Qualified Code(s): R06.09 - Other forms of dyspnea (2) Asthma-COPD overlap syndrome: Code(s): J44.9 - Chronic obstructive pulmonary disease, unspecified Category: Medical (3) RUCHI on CPAP: Code(s): G47.33 - Obstructive sleep apnea (adult) (pediatric); Z99.89 - Dependence on other enabling machines and devices Category: Medical (4) Chronic allergic rhinitis: Code(s): J30.9 - Allergic rhinitis, unspecified Category: Medical (5) Asthma: Code(s): J45.909 - Unspecified asthma, uncomplicated Category: Surgical Qualifiers: Asthma complication type: with acute exacerbation Asthma persistence: persistent Asthma severity: moderate Qualified Code(s): J45.41 - Moderate persistent asthma with (acute) exacerbation (6) Chronic cough: Code(s): R05.3 - Chronic cough Category: Medical (7) Pulmonary nodules: Comment: Stable for more than 5 years based on her CT scan from September 2020 Code(s): R91.8 - Other nonspecific abnormal finding of lung field Category: Medical (8) Discoid lupus: Code(s): L93.0 - Discoid lupus erythematosus Category: Medical (9) Chest pain: Code(s): R07.9 - Chest pain, unspecified Category: Medical Qualifiers: Chest pain type: unspecified Qualified Code(s): R07.9 - Chest pain, unspecified (10) Hypertension: Code(s): I10 - Essential (primary) hypertension Category: Medical Qualifiers: Hypertension type: primary hypertension Qualified Code(s): I10 - Essential (primary) hypertension Plan Continue Anoro and Alvesco as prescribed, add spacer AFTAB/nebulizer as needed Continue APAP therapy at night, Needs titration study with persistent elevated of the AHI 11 Dymista CXR/sinus xrays start Melatonin for sleep continue singulair F/U 3 months Orders: Orders RT PSG in-lab sleep titration Today G47.33 - Obstructive sleep apnea (adult) (pediatric), I10 - Essential (primary) hypertension, Z99.89 - Dependence on other enabling machines and devices XR sinus <3V Today R05.3 - Chronic cough Medications: New azelastine-fluticasone 137-50 mcg/spray (Dymista) administer into each nostril 1 spray intranasal BID 23 grams 5RF doxycycline monohydrate 100 mg PO BID 14 days 28 tabs 0RF melatonin 5 mg PO BEDTIME PRN 30 tabs 6RF sleep 30 days melatonin 5 mg PO BEDTIME 30 days PRN 30 tabs 6RF sleep azelastine-fluticasone 137-50 mcg/spray (Dymista) administer into each nostril 1 spray intranasal BID 23 grams 5RF doxycycline monohydrate 100 mg PO BID 28 tabs 0RF 14 days Coding Level of Care Code Est Pt Level 4 (28613) Complex EM visit Add On G2211 Diagnoses Dyspnea on exertion R06.09 Dyspnea type: dyspnea on exertion Asthma-COPD overlap syndrome J44.9 RUCHI on CPAP G47.33; Z99.89 Chronic allergic rhinitis J30.9 Moderate persistent asthma with acute exacerbation J45.41 Asthma complication type: with acute exacerbation Asthma persistence: persistent Asthma severity: moderate Chronic cough R05.3 Pulmonary nodules R91.8 Discoid lupus L93.0 Chest pain, unspecified type R07.9 Chest pain type: unspecified Primary hypertension I10 Hypertension type: primary hypertension Time Spent (min) 17
[2024-08-05 08:09] VITALS: BP 156/70; PULSE 62; O2SAT 100; BMI 29.7
== END 2024-08-05 08:43 | disposition home or self-care (01) ==
LOC: HO.HPS 07:46
PROVIDERS: PCP Internal Medicine; Visit Provider Hospitalist
DX: R06.09 Other forms of dyspnea (principal); J44.9 Chronic obstructive pulmonary disease, unspecified; G47.33 Obstructive sleep apnea (adult) (pediatric); Z99.89 Dependence on other enabling machines and devices; J30.9 Allergic rhinitis, unspecified; J45.41 Moderate persistent asthma with (acute) exacerbation; R05.3 Chronic cough; R91.8 Other nonspecific abnormal finding of lung field; L93.0 Discoid lupus erythematosus; R07.9 Chest pain, unspecified; I10 Essential (primary) hypertension
CPT/HCPCS: 99214; G2211

== ENCOUNTER → 2024-08-05 07:45 | Outpatient (BNVA) | payer OTHER, SELFPAY | PROVIDERS: PCP Internal Medicine; Visit Provider Hospitalist | DX: J44.9 Chronic obstructive pulmonary disease, unspecified (principal); J45.41 Moderate persistent asthma with (acute) exacerbation; R07.9 Chest pain, unspecified; R06.09 Other forms of dyspnea; E11.9 Type 2 diabetes mellitus without complications; G47.33 Obstructive sleep apnea (adult) (pediatric); J30.9 Allergic rhinitis, unspecified; R05.3 Chronic cough; R91.8 Other nonspecific abnormal finding of lung field; L93.0 Discoid lupus erythematosus; I10 Essential (primary) hypertension; Z71.3 Dietary counseling and surveillance; Z86.711 Personal history of pulmonary embolism; Z99.89 Dependence on other enabling machines and devices | CPT/HCPCS: 97803; 99212 ==

== ENCOUNTER 2024-08-05 08:47 | Outpatient (AMB) | payer OTHER, MEDICAID, SELFPAY ==
[2024-08-05 09:08] VITALS: BMI 29.7
--- NOTE | 2024-08-05 09:08 | A.OFFVIS_ITS ---
VS Expanded 08/05/24 09:08 Height 5 ft 3 in Weight 167 lb 8 oz BMI 29.7 Intake Visit Reasons: T2DM Allergies acetaminophen [Percocet] Allergy (Severe, Verified 08/05/24 08:12) Vomitting and Diarrhea oxycodone [Percocet] Allergy (Severe, Verified 08/05/24 08:12) Tachycardia and High Blood Pressure topiramate [Topamax] Allergy (Severe, Verified 08/05/24 08:12) Tachycardia and High Blood Pressure cyanocobalamin (vitamin B12) Allergy (Unknown, Verified 08/05/24 08:12) Vomitting and Diarrhea valacyclovir Adverse Reaction (Severe, Verified 08/05/24 08:12) Hemolytic Anemia Amitriptyline Allergy (Severe, Uncoded 08/05/24 08:12) Tachycardia and High Blood Pressure latex- rash Allergy (Severe, Uncoded 08/05/24 08:12) Rash and Hives MigraLam Allergy (Severe, Uncoded 08/05/24 08:12) Vomitting and Diarrhea red meat Allergy (Severe, Uncoded 08/05/24 08:12) Vomitting and Diarrhea tomatoes, strawberrries Allergy (Severe, Uncoded 08/05/24 08:12) Vomitting and Diarrhea lactose intolerant Allergy (Unknown, Uncoded 08/05/24 08:12) vomitting and diarrhea Nutrition Presentation Details: Pt presents for MNT f/u for T2DM Pt brought BG record , bg ranging from 110-144 mg/dl, occ 195 mg/dl Pt reports doing well, having a variety of foods , working on 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 hx of GI side effect after consuming gluten Pt has questions regarding iron rich foods physical activity: sedentary, planning on going for walks as able takes a daily MVI food frequency fish: 2 x/wk (tuna/salmon) dairy: lactose free/soy, dairy alternatives, 2x/d fruits: 1/d veg: starchy veg tolerated r/t to IBS Has hx of anemia BS Monitoring Most Recent Diabetes Results: No Data to Display [facility] Medical History (Updated 08/05/24 @ 08:44 by Jeremy Lomeli MD) Hypertension Limb swelling Discoid lupus COVID-19 Pulmonary nodules Chronic cough Chronic allergic rhinitis Atopic dermatitis RUCHI on CPAP Asthma-COPD overlap syndrome Surgical History (Updated 07/04/22 @ 22:35 by Jeremy Lomeli MD) Asthma Social History Patient Tobacco Use Status: Never used Tobacco Assessment & Plan Assessment & Plan (1) Type 2 diabetes mellitus without complications: Code(s): E11.9 - Type 2 diabetes mellitus without complications Category: Medical Plan: wt: 75kg (08/28) es kcal needs as per [place] sT Jeor:: [id number] Est fluid needs as per 25-30 ml/kg bw: 1800 -2200 ml/d. Na: < 2300 mg/d Fiber 10-12 g/d and gradual increase as tolerated Educated patient on: ( R = reviewed V = verbalizes understanding N/R = needs review N/A = not applicable * Food sources of carbohydrate, adequate serving sizes and its role in various health conditions: R V * Differences between complex carbohydrates a simple carbohydrates, role of fiber in diet: R V * Differences between types of fats and role in diet (mono on saturated fat fatty acids, saturated fatty acids, trans fats): R V * Food sources of sodium in salt and healthy modifications for heart health in kidney health: R V * Vitamins and minerals: R V * Healthy plate method concept: R V * Physical activity: Benefits a precaution: R V * Hypoglycemia protocol (rule of 15): R V * Dietary prevention of Hyperglycemia: R V * natural gluten free foods, gluten free options fortified with vit/min: R Patient Instructions: Continue including a variety of foods in adequate portion sizes Include iron rich foods, include beef at least once a week, fortified GF cereals . see list of options Coding Level of Care Code Nutr Indiv Subseq ([id number]) Diagnoses Type 2 diabetes mellitus without complications E11.9 Time Spent (min) 25
== END 2024-08-05 09:47 | disposition home or self-care (01) ==
LOC: HO.ENCR 08:48
PROVIDERS: PCP Internal Medicine; Visit Provider Dietitian, Registered
DX: E11.9 Type 2 diabetes mellitus without complications (principal)

== ENCOUNTER → 2024-09-05 20:30 | Outpatient (REF) | payer OTHER, SELFPAY ==
--- OUTSIDE RECORDS SUMMARY | 2024-09-02 23:59 | XMS_ITS | Continuity of Care Document ---
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 Phone Myla Taylor MD Primary Care Physician [phone] Encounter [facility] Date(s): 08/03/24 - 09/02/24 [facility] [address] [place], [place] [address] Encounter Type: Triage Allergies, Adverse Reactions, Alerts Substance Criticality Severity Reaction Reaction Severity Status amitriptyline Tachycardia Acti ve Migranal Unable to assess criticality Persistent Severe anxious itching hives Active Topamax Tachycardia Active Vitamin B-12 face gets acne Ac tive Prevnar rash, swelling of arm Active Glutens diarrhea Active Latex all areas turn red and ithching Active Red Meat diarrhea Active Percocet 7.5/325 tachycardia A ctive Lactose vomitting, diarrhea Active EPINEPHrine asthma problems tachycardia Active QUEtiapine dyspnea, chest pressure Active Dupixent rash on face Active Immunizations Given and Recorded Vaccine Date Status Refusal Reason influenza virus vaccine, inactivated 12/07/23 Juan Luis rded influenza virus vaccine, inactivated 1 12/08/22 Gi sebastián influenza virus vaccine, inactivated 12/23/21 Juan Luis rded influenza virus vaccine, inactivated 12/09/20 Juan Luis rded influenza virus vaccine, inactivated 12/11/19 Juan Luis rded influenza virus vaccine, inactivated 12/21/18 Juan Luis rded influenza virus vaccine, inactivated 12/21/17 Juan Luis rded influenza virus vaccine, inactivated 2 12/07/16 Gi sebastián influenza virus vaccine, inactivated 10/28/15 Juan Luis rded influenza virus vaccine, inactivated 3 11/06/14 Re corded influenza virus vaccine, inactivated 12/02/13 Give n influenza virus vaccine, inactivated 11/21/12 Give n influenza virus vaccine, inactivated 4 11/29/11 Gi sebastián pneumococcal 20-valent conjugate vaccine 5 02/09/23 Given tetanus-diphtheria toxoids (Td) 6 06/06/22 Given [id number] 12y+ bivalent booster vax 12/23/21 Recorded SARS-CoV-2 (COVID-19) mRNA BNT-162b2 vac 7 10/30/20 Recorded SARS-CoV-2 (COVID-19) mRNA BNT-162b2 vac 04/15/20 Recorded pneumococcal 23-valent vaccine 04/26/13 Given Zoster Vaccine Live 8 11/21/12 Recorded tetanus/diphtheria/pertussis, acel(Tdap) 04/17/12 Given 1Result Comment: [facility] [id number] 2Result Comment: [12/07/2016] [facility] [id number] 3Result Comment: [02/12/2015] [facility] 4Admin Note: recieve at [facility] 5Result Comment: pt. tolerated inj. without complications....[place] 6Result Comment: [facility]: [id number] 7Result Comment: Done at [facility] 8Result Comment: [11/21/2012] DONE AT [facility] Medications 4 pronged cane 4 pronged cane, See Instructions, # 1 each, Refills 0, Tot. Refills 0, Maintenance, use as directedduration -99 dx- diabetic neuropathy, fibromyalgia, asthma, gait instability, 08/19/24 2:29:00 PM EDT, Supply Start Date: 08/19/24 Status: Ordered Quantity: 1.0 Unit: each Repeat number: 1 Acidophilus Probiotic Blend 1 capsule, By Mouth, Daily in AM, 0 Refills, Maintenance, 12/29/16 8:45:00 AM EDT Start Date: 12/29/16 Status: Ordered Repeat number: 1 albuterol-ipratropium 3 mg-0.5 mg/3 ml inhalation solution 3 mL, Neb, Every 6 hours, PRN Wheezing/Shortness of Breath, # 180 mL, 0 Refills, Maintenance, 04/24/24 1:25:00 PM EST, Solution, [facility], Partial fill upon patient request if the prescription is for a schedule II opioid drug., 3 mL Neb Every 6 hours,PRN:Wheezing/Shortness of Breath, 160, cm, 04/24/24 12:46:00 EST, Height, 75.5, kg, 02/26/24 12:30:00 EST, Dry Weight Start Date: 04/24/24 Status: Ordered Quantity: 180.0 Unit: mL Repeat number: 1 aluminum hydroxide/magnesium hydroxide/simethicone 200 mg-200 mg-20 mg/5 mL oral suspension 20 mL, By Mouth, 4 times a day, PRN for control of stomach acid, # 240 mL, 11 Refills, Maintenance,10/24/18 11:02:00 PM EDT, Suspension, [facility]/pharmacy #0488, 20 mL By Mouth 4 times a day,PRN:for control of stomach acid Start Date: 10/24/18 Status: Ordered Quantity: 240.0 Unit: mL Repeat number: 12 Anoro Ellipta 62.5 mcg-25 mcg/inh inhalation powder 1 puffs, Inhalation, Daily in AM, 0 Refills, Maintenance, 12/29/16 8:41:53 AM EDT Start Date: 12/29/16 Status: Ordered Repeat number: 1 Aspirin Low Dose 81 mg oral delayed release tablet 1 tablet, By Mouth, Daily, # 28 tablet, 11 Refills, Maintenance, 12/18/23 11:26:00 AM EDT, [facility], 160, cm, 10/18/23 10:22:00 EDT, Height, 77, kg, 10/18/23 10:20:00 EDT, Dry Weight Start Date: 12/18/23 Status: Ordered Quantity: 28.0 Unit: tablet Repeat number: 1 atorvastatin 40 mg oral tablet See Instructions, TAKE 1 TABLET BY MOUTH DAILY AT BEDTIME, # 28 tablet, 11 Refills, Maintenance, 01/24/24 11:41:00 AM EST, [facility], 160, cm, 01/24/24 10:32:00 EST, Height, 74.2, kg, 01/24/24 10:32:00 EST, Dry Weight Start Date: 01/24/24 Status: Ordered Quantity: 28.0 Unit: tablet Repeat number: 12 Bed rails Bed rails, See Instructions, # 2 each, Refills 0, Tot. Refills 0, Maintenance, use as directed duration - dx- diabetic neuropathy, fibromyalgia, asthma, 08/19/24 2:29:00 PM EDT, Supply Start Date: 08/19/24 Status: Ordered Quantity: 2.0 Unit: each Repeat number: 1 Belsomra 10 mg oral tablet 0 Refills, Maintenance, 08/19/24 10:25:00 AM EDT, Partial fill upon patient request if the prescription is for a schedule II opioid drug. Start Date: 08/19/24 Status: Ordered Repeat number: 1 Daily Jack oral tablet 1 tablet, By Mouth, Daily, # 28 tablet, 5 Refills, Maintenance, 06/05/24 5:37:00 PM EDT, [facility], 0, TAKE 1 TABLET BY MOUTH ONCE DAILY, 160, cm, 06/03/24 14:00:00 EDT, Height, 75.1, kg, 06/03/24 13:53:00 EDT, Dry Weight Start Date: 06/05/24 Status: Ordered Quantity: 28.0 Unit: tablet Repeat number: 1 desonide 0.05% topical cream 0 Refills, Maintenance, 05/22/24 2:41:00 PM EDT, Partial fill upon patient request if the prescription is for a schedule II opioid drug. Start Date: 05/22/24 Status: Ordered Repeat number: 1 Diapers See Instructions, # 120 each, Refills 5, Tot. Refills 5, Maintenance, Medium size PULLUPS change every 6 hrs dx- urinary and fecal incontinence s/p spinal stimulator duration -, 01/12/24 5:58:00 PM EST, Supply Start Date: 01/12/24 Status: Ordered Quantity: 120.0 Unit: each Repeat number: 6 dicyclomine 10 mg oral capsule 1 capsule = 10 mg, By Mouth, 4 times a day, # 360 capsule, 2 Refills, Maintenance, 04/30/24 2:44:00 PM EST, Capsule, [facility], 160, cm, 04/24/24 12:46:00 EST, Height, 75.5, kg, 02/26/24 12:30:00 EST, Dry Weight Start Date: 04/30/24 Status: Ordered Quantity: 360.0 Unit: capsule Repeat number: 3 duloxetine 60 mg oral enteric coated capsule 0 Refills, Maintenance, 01/24/24 11:32:00 AM EST, Partial fill upon patient request if the prescription is for a schedule II opioid drug. Start Date: 01/24/24 Status: Ordered Repeat number: 1 estradiol 0.1 mg/g vaginal cream 0 Refills, Maintenance, 01/20/21 10:04:00 AM EST, Partial fill upon patient request if the prescription is for a schedule II opioid drug. Start Date: 01/20/21 Status: Ordered Repeat number: 1 FeroSul 325 mg oral tablet 1 tablet, By Mouth, Daily, # 28 tablet, 5 Refills, Maintenance, 04/04/24 2:08:00 PM EST, [facility], 160, cm, 02/26/24 12:36:00 EST, Height, 75.5, kg, 02/26/24 12:30:00 EST, Dry Weight Start Date: 04/04/24 Status: Ordered Quantity: 28.0 Unit: tablet Repeat number: 1 Fleet Extra 7 g-19 g rectal enema See Instructions, PRN for constipation, 1 each Rectally Once, # 230 mL, 5 Refills, Soft Stop, 12/01/22 4:38:00 PM EDT, Enema, [facility], Partial fill upon patient request if the prescription is for a schedule II opioid drug., 1 each Rectally Once,PRN:for constipation, 160, cm, 12/01/22 15:54:00 EDT, Height, 75.3, kg, 11/05/22 7:22:00 EDT, Dry Weight Start Date: 12/01/22 Status: Ordered Quantity: 230.0 Unit: mL Repeat number: 6 gabapentin 800 mg oral tablet 1 tablet = 800 mg, By Mouth, 3 times a day, 0 Refills, Maintenance, 09/25/17 9:36:58 AM EDT Start Date: 09/25/17 Status: Ordered Repeat number: 1 hydrochlorothiazide 25 mg oral tablet 25 mg, 1, tablet, By Mouth, Daily, # 90 tablet, Refills 1, Tot. Refills 1, Maintenance, 07/24/24 10:06:00 AM EDT, Route to Pharmacy Electronically, [facility], Partial fill upon patient request if the prescription is for a schedule II opioid drug., 160, cm, 07/05/24 8:31:00 EDT, Height, 74.4, kg, 07/05/24 8:31:00 EDT, Dry Weight Start Date: 07/24/24 Stop Date: 01/20/25 Status: Ordered Quantity: 90.0 Unit: tablet Repeat number: 2 ibuprofen 800 mg oral tablet 800 mg, 1, tablet, By Mouth, 3 times a day, PRN, # 42 tablet, Refills 3, Tot. Refills 3, Maintenance, Pain , Moderate, 02/26/24 1:26:00 PM EST, Route to Pharmacy Electronically, [facility], Partial fill upon patient request if the prescription is for a schedule II opioid drug., 160,cm, 02/26/24 12:36:00 EST, Height, 75.5, kg, 02/26/24 12:30:00 EST, Dry Weight Start Date: 02/26/24 Stop Date: 04/22/24 Status: Ordered Quantity: 42.0 Unit: tablet Repeat number: 4 Imodium A-D 2 mg oral tablet 2 mg, 1, tablet, By Mouth, Every 4 hours, PRN, # 540 tablet, Refills 0, Tot. Refills 0, Maintenance, for loose stool, 12/06/18 9:27:49 AM EDT, Route to Pharmacy Electronically, [facility]/pharmacy #[id number] Start Date: 12/06/18 Status: Ordered Quantity: 540.0 Unit: tablet Repeat number: 1 Januvia 100 mg oral tablet 1 tablet = 100 mg, By Mouth, Daily in AM, # 30 tablet, 0 Refills, Maintenance, 08/14/20 12:18:00 PM EDT, Tablet, Partial fill upon patient request if the prescription is for a schedule II opioid drug. Start Date: 08/14/20 Status: Ordered Quantity: 30.0 Unit: tablet Repeat number: 1 ketoconazole 2% topical shampoo 1 application, Topically, # 120 mL, 0 Refills, Maintenance, 08/08/13 10:40:05 AM EDT, Shampoo Start Date: 08/08/13 Status: Ordered Quantity: 120.0 Unit: mL Repeat number: 1 metFORMIN 500 mg oral tablet, extended release 1 tablet = 500 mg, By Mouth, 2 times a day, # 180 tablet, 3 Refills, Maintenance, 01/16/18 2:14:05 PM EST, [facility]/pharmacy #0488 Start Date: 01/16/18 Stop Date: 01/11/19 Status: Ordered Quantity: 180.0 Unit: tablet Repeat number: 4 Metoprolol Tartrate 100 mg oral tablet 1 tablet, By Mouth, 2 times a day, # 56 tablet, 5 Refills, Maintenance, 05/02/24 1:22:00 PM EST, [facility], 160, cm, 04/24/24 12:46:00 EST, Height, 75.5, kg, 02/26/24 12:30:00 EST, Dry Weight Start Date: 05/02/24 Status: Ordered Quantity: 56.0 Unit: tablet Repeat number: 1 Myrbetriq 25 mg oral tablet, extended release 0 Refills, Maintenance, 09/24/21 10:55:00 AM EDT, Partial fill upon patient request if the prescription is for a schedule II opioid drug. Start Date: 09/24/21 Status: Ordered Repeat number: 1 nystatin topical [id number] u/gm powder 1 application, Topically, 2 times a day, # 30 Gm, 0 Refills, Maintenance, 08/15/23 9:13:00 AM EDT, Powder, [facility], Partial fill upon patient request if the prescription is for a schedule II opioid drug., 1 application Topically 2 times a day, 160, cm, 08/03/23 8:07:00 EDT, Height, 76.5, kg, 08/03/23 8:07:00 EDT, Dry Weight Start Date: 08/15/23 Status: Ordered Quantity: 30.0 Unit: g Repeat number: 1 omeprazole 40 mg oral enteric coated capsule 1 capsule, By Mouth, Daily, # 28 capsule, 5 Refills, Maintenance, 08/16/24 10:39:00 AM EDT, [facility], 160, cm, 07/05/24 8:31:00 EDT, Height, 74.4, kg, 07/05/24 8:31:00 EDT, Dry Weight Start Date: 08/16/24 Status: Ordered Quantity: 28.0 Unit: capsule Repeat number: 1 ondansetron 4 mg oral tablet 1 tablet = 4 mg, By Mouth, Every 8 hours, # 30 tablet, 3 Refills, Maintenance, 04/30/24 2:44:00 PM EST, Tablet, [facility], Partial fill upon patient request if the prescription is fora schedule II opioid drug., 160, cm, 04/24/24 12:46:00 EST, Height, 75.5, kg, 02/26/24 12:30:00 EST, Dry Weight Start Date: 04/30/24 Status: Ordered Quantity: 30.0 Unit: tablet Repeat number: 4 Rinvoq 15 mg oral tablet, extended release 1 tablet = 15 mg, By Mouth, Daily, do not chew or break tablets, # 30 tablet, 0 Refills, Maintenance, 09/11/23 12:11:00 PM EDT, ER Tablet, Partial fill upon patient request if the prescription is for aschedule II opioid drug. Start Date: 09/11/23 Status: Ordered Quantity: 30.0 Unit: tablet Repeat number: 1 Singulair 10 mg oral tablet 10 mg, 1, tablet, By Mouth, Daily before dinner, # 90 tablet, Refills 0, Tot. Refills 0, Maintenance, 12/07/17 12:22:06 PM EDT, Route to Pharmacy Electronically, [facility]/pharmacy #[id number] Start Date: 12/07/17 Stop Date: 12/02/18 Status: Ordered Quantity: 90.0 Unit: tablet Repeat number: 1 valACYclovir 500 mg oral tablet 500 mg, 1, tablet, By Mouth, Daily, for 90 days, # 90 tablet, Refills 1, Tot. Refills 1, Acute 01/01/25 9:17:00 AM EDT, 07/05/24 9:17:00 AM EDT, Route to Pharmacy Electronically, [id number], Partial fill upon patient request if the prescription is for a schedule II opioid drug., 160, cm, 07/05/24 8:31:00 EDT, Height, 74.4, kg, 07/05/24 8:31:00 EDT, Dry Weight Start Date: 07/05/24 Stop Date: 01/01/25 Status: Ordered Quantity: 90.0 Unit: tablet Repeat number: 2 valsartan 160 mg oral tablet 160 mg, 1, tablet, By Mouth, 2 times a day, # 60 tablet, Refills 11, Tot. Refills 11, Maintenance, 04/18/24 10:14:00 AM EST, Route to Pharmacy Electronically, [facility], dose increased from 80 mg bid due to uncontrolled HTN, 160, cm, 04/18/24 9:11:00 EST, Height, 75.5, kg, 02/26/24 1 2:30:00 EST, Dry Weight Start Date: 04/18/24 Stop Date: 04/13/25 Status: Ordered Quantity: 60.0 Unit: tablet Repeat number: 12 Ventolin 90 mcg Inhaler 2, puffs, Inhalation, 4 times a day, PRN, Refills 0, Maintenance, 04/30/18 10:52:45 AM EST Start Date: 04/30/18 Status: Ordered Repeat number: 1 Vitamin B12 1000 mcg oral tablet 1 tablet = 1,000 mcg, By Mouth, Daily, 0 Refills, Maintenance, 05/22/24 2:44:00 PM EDT, Partial fillupon patient request if the prescription is for a schedule II opioid drug. Start Date: 05/22/24 Status: Ordered Repeat number: 1 Problem List Condition Confirmation Course Effective Dates Status H ealth Status Informant Abdominal bloating Confirmed Active Age-related macular degeneration Confirmed Active Anxiety and depression Confirmed Active Asthma Confirmed Active Diabetes mellitus type 2, controlled Confirmed Active Diabetic neuropathy Confirmed Active Discoid lupus Confirmed Active Dyspepsia Confirmed Active Dysphagia Confirmed Active Leg edema Confirmed Active Epigastric pain Confirmed Active Generalized osteoarthritis Confirmed Active Hyperlipidemia NOS Confirmed Active Hypertension, essential NOS Confirmed Active IBS (irritable bowel syndrome) Confirmed Active Migraine Confirmed Active Nausea Confirmed Active Obstructive Sleep Apnea (Adult) (Pediatric) Confirmed Active Other Psoriasis Confirmed Active Primary fibromyalgia Confirmed Active PE (pulmonary embolism) Confirmed Active Sacral nerve stimulator present Confirmed Active Varicose vein Confirmed Active Social History Social History Type Response Smoking Status Never smoker; Tobacc o user in household: No entered on: 04/26/13 Sex Female Sex Representation Female (finding) Implantable Device List Procedure Provider Procedure Date Device Type Site Insertion Sacral Nerve Stimu Stephie Saucedo MD 07/12/21 Unknown Back Device Identifier Serial Number Lot or Batch Number Manufacturing Date Expiration Date Distinct Identification Code MRI Safety Implantable Status Assigning Authority Unknown [id number] Unknown Unknown 08/17/22 Unknown Unknown Active Unknown Procedure Provider Procedure Date Device Type Site Insertion Sacral Nerve Stimu Stephie Saucedo MD 07/12/21 Unknown Back Device Identifier Serial Number Lot or Batch Number Manufacturing Date Expiration Date Distinct Identification Code MRI Safety Implantable Status Assigning Authority Unknown Unknown [id number] Unknown 02/10/23 Unknown Unknown Active Unk nown Procedure Provider Procedure Date Device Type Site Bone Graft Calcaneal Pete Burrell MD 08/24/20 Unknown Ankle Left Device Identifier Serial Number Lot or Batch Number Manufacturing Date Expiration Date Distinct Identification Code MRI Safety Implantable Status Assigning Authority Unknown [id number] Unknown 09/02/22 Unknown Unknown Active Unk nown Procedure Provider Procedure Date Device Type Site Lengthening Gastrocnemius Pete Burrell MD 09/30/19 Un known Foot Device Identifier Serial Number Lot or Batch Number Manufacturing Date Expiration Date Distinct Identification Code MRI Safety Implantable Status Assigning Authority Unknown Unknown [id number] Unknown 02/02/21 Unknown Unknown Active Un known Patient Care team information Care Team Personnel Name: Reena Lucas RN Position: [facility] RN Member Role: Primary Care Nurse Name: Shanna Contreras Position: [facility] RN Supv Member Role: Primary Care Nurse Name: Myla Taylor MD Position: [facility] Physician - Primary Care Member Role: PCP Address: [address] [place] [address] [facility] [address] Telecom: Name: Ines Blank RN Position: S RN Member Role: Primary Care Nurse Name: Compa Muñoz RN Position: [facility] RN Member Role: Primary Care Nurse Care Team Related Persons Name: LORRAINE VANEGAS NEPHEW Name: GURWINDER HESTER Name: VANDANA DEWARDS Insurance Providers Guarantor name: ALEXYS WILEY [employer] [facility] Information #: 1 Payer: [employer] Payer Identifier: NA Member Number: [id number] Group Number: [id number] Subscriber Identifier: [id number] Relationship to Subscriber: self Coverage Type: Medicare Managed Care (Includes Medicare Advantage Plans) Coverage Verification Date: NA Telecom: NA Address:
--- OUTSIDE RECORDS SUMMARY | 2024-09-05 21:50 | XMS_ITS | Data Portability ---
Author Organization [address], [facility] Address [address] [place] [address] Care Team Providers Care College Administrator Name Role Phone HIM CCA OTHER Assessment Encounter Date Assessment Date Assessment LastModified by Organization Details LastModified Time 05/29/2024 05/29/2024 As noted, we were called to see this patient regarding concerns of high bp. Evaluation in the field was performed by my rug receiving clerk colleague, as noted above, I provided real-time direction and supervision for this visit. The evaluation revealed 73y F with HTN newly starting meds 3d ago. BP still up but not in severe range - 170s/80s, asx excpet for some constant chest pressure she has had for years. reassuring exam. she has PCP f/u on Monday Impression: HTN Plan: continue new home med hctz 12.5 Primary care, consider -- keep f/u appt in 5d Disposition: We discussed the diagnostic uncertainty of home visits and the risk associated with this. In this case, the patient and I felt this to be an acceptable and reasonable amount of risk given the benefit of avoiding an ED visit. We discussed the need to seek care urgently/emerge ntly in the setting of any new or worsening serious symptoms, particularly worsening shob, dizziness, vision chanes, headaches, chest pain atilhou Not available 05/29/2024 19:49:56 Plan of Treatment Reminders Order Date Submit Date Provider Last Modified By Organization Details Last Modified Time Details Appointments None record ed. Lab None record ed. Referral None record ed. Procedures None record ed. Surgeries None record ed. Imaging None record ed. Medication Orders None record ed. Patient TargetsNo targets recorded. Patient InstructionsNo instructions recorded. Reason for Referral None Reported. Medical Equipment None Reported. Allergies Allergen ID Allergen Name Allergen Category Reaction Reaction Severity Criticality Documentation Date Start Date Code Code System Note Provider Name and Address Organization Details Recorded Time 20873 morphine medicatio n Not available Not available Not available 05/29/2024 7052 RxNorm Not Available [facility] - production 5 16:12:42 78464 Topamax medicatio n Not available Not available Not available 05/29/2024 01910 3 RxNorm Not Available [facility] - production 5 16:12:42 62807 Seroquel medicatio n Not available Not available Not available 05/29/2024 83877 RxNorm Not Available [facility] - production 5 16:12:42 Medications Name Sig Start Date Stop Date Status Note LastModified by Organization Details LastModified Time desonide 0.05 % topical cream APPLY TO ECZEMA ON FACE TWICE DAILY NEEDED active Not Available Not Available No t Available ketoconazole 2 % shampoo APPLY TO SCALP 3X WEEKLY LATHER LET SIT 5 MIN, THEN RINSE. active Not Available Not Available No t Available ibuprofen 800 mg tablet TAKE 1 TABLET BY MOUTH THREE TIMES A DAY NEEDED FOR MODERATE PAIN FOR 14 DAYS active Not Available Not Available No t Available triamcinolone acetonide 0.1 % topical cream APPLY TO RASH UNDER BREASTS TWICE A DAY FOR 2 WEEKS active Not Available Not Available No t Available tacrolimus 0.1 % topical ointment APPLY TO FLARES ON CHEST AND SHOULDERS TWICE DAILY active Not Available Not Available No t Available nystatin 100,000 unit/gram topical cream APPLY TO RASH UNDER BREASTS TWICE A DAY FOR 2 WEEKS active Not Available Not Available No t Available mupirocin 2 % topical ointment APPLY TO RASH UNDER BREAST TWICE A DAY active Not Available Not Available No t Available furosemide 20 mg tablet TAKE 1 TABLET BY MOUTH EVERY DAY FOR 14 DAYS active Not Available Not Available No t Available betamethasone dipropionate 0.05 % lotion APPLY TO SCALP TOPICALLY TWICE A DAY X 2 WEEKS NEEDED FOR ITCH active Not Available Not Available No t Available Readi-Cat 2 2 % (w/v) oral suspension DRINK 1ST BOTTLE 6 HOUR BEFORE AND 2ND BOTTLE [address] SCAN active Not Available Not Available No t Available Rinvoq 15 mg tablet,extend ed release TAKE 1 TABLET BY MOUTH EVERY DAY active Not Available Not Available No t Available Vitals Date Recorded Body height Oxygen saturation Oxygen saturation in Arterial blood by Pulse oximetry Body temperature Body weight Respiratory rate Heart rate Systolic And Diastolic Provider Name and Address Organization Details Last Updated DateTime 5 152.4 cm 98 % 98 % 98.4 [degF] 01343.8 g 14 /min 80 /min 180/84 mm[Hg] Not Available [facility] - production 5 19:40:40 Social History None recorded. Functional Status None recorded. Mental Status None recorded. Family History Nothing Reported. Medical History No medical history recorded. Gynecological HistoryNo gynecological history recorded. Obstetrics History GPAL:G 0 P 0 0 0 0 Past Encounters Encounter ID Performer Location Encounter Start Date Encounter Closed Date Diagnosis/Indication Diagnosis SNOMED-CT Code Diagnosis ICD10 Code Diagnosis Note [id number] Lisy Crowder MD Main - [facility] [address] [place] [phone] 05/29/2024 19:39:47 05/29/2024 21:58:39 Essential hypertension [id number] I10 Health Concerns Section Related Observation LastModified by Organization Detai ls LastModified Time None Recorded Concern Status LastModified by Organization Details LastModified Time None Recorded Advance Directives Directive None Recorded Payers Insurance Date Sequence Insurance Name Policy Number Policy Hernandez Covered Member ID Hernandez Member ID Guarantor Name 05/29/2024 1 [facility] - DOS ON OR AFTER 2022 - DUAL ELIGIBLE - [employer] OPT[employer] AND ONE CARE (MEDICARE REPLACEMENT/ADV ANTAGE - HMO) Tresa Garza [id number] Elin Greg Notes Date Note Type Note Provider Name and Address Organization Details Recorded Time 05/29/2024 text/html CRC Nurse Triage Notes (Stephanie Del Rio - RN): Reason For Request: Patient is having problems w/ her blood pressure.Denies: History of Heart Attack, in the setting of active chest pain Active Chest pain, radiates to neck jaw and or arm Diaphoretic/Sweati ng Describes as crushing Sudden onset of nausea/Vomiting and shortness of breath. Shortness of Breath Unable to speak in full sentences without distress Chief Complaints: High Blood PressurePMH: Hyperlipidemia, Hypertension, AsthmaPMH Reviewed at 05/29/2024 - 16:12Allergies Reviewed at 05/29/2024 - 16:12Comments: Issues with HTN recently. BP 187/102 taken today at 1pm by visiting nurse. c/o slight chest pressure. Denies left arm, neck or jaw pain, dizziness/lighthea dedness, or visual changes. shortness of breath at baseline, hx of Asthma. Patient is on HCTZ and Atorvastatin. No recent changes to medication. Education provided on the response time and the member was advised to monitor reported s/s and seek emergency treatment if needed. [facility] [place]: high bp. pcp started hctz 3d ago at dose of 12.5. but in 170s/80. some chest pressure but is something she's had since childhood, constant. has f/u on Monday w PCP. .................. .................. .................. .................. .................. .................. .................. ............... Instructional Media Services Technician Note From Logan Joyner: Patient alert and oriented complains her blood pressure is higher than it has been in the past. Patient reports PCP started HCTZ, patient started taking three days ago. Patient denies any symptoms. Patient reports pressure in chest is chronic since childhood and unchanged. Patient denies difficulty breathing, nausea, vomiting, diarrhea, just dizziness, chest pain, or any other pain or complaints. Patient pink warm dry secondary exam unremarkable. Lung sounds clear negative increased work of breathing positive full sentences abdomen soft, nontender extremities unremarkable. Patient reports she has a PCP appointment scheduled in five days. [facility] advises patient to continue to record blood pressures, take medication as prescribed and follow up with PCP. Red flags patient education discussed. .................. .................. .................. .................. .................. .................. .................. ............... [facility] Consulted: Lisy Crowder .................. .................. .................. .................. .................. .................. .................. ............... Disposition: Fulfilled Lisy Crowder MD [address] [facility],[address], [place], [address], [employer] Highlight[employer]BY ADEN 05/29/2024 20:47:48 OBGyn Episode No OBEpisode recorded.
--- OUTSIDE RECORDS SUMMARY | 2024-09-05 21:50 | XMS_ITS | Clinical Summary ---
Author Organization [employer] [facility] Address [address] [place] [address] Care Team Providers Care Neurology Specialist Name Role Phone Myla Taylor MD Primary Care Provider [phone] Surgical History Surgery Date Site/Laterality Comments TOTAL KNEE ARTHROPLASTY Bilateral PROCEDURE: HISTORICAL TOTAL KNEE REPLACE; COMMENT: 1999, 2013 HYSTERECTOMY 1979 PROCEDURE: HISTORICAL HYSTERECTOMY APPENDECTOMY 1970 PROCEDURE: HISTORICAL APPENDECTOMY OTHER SURGICAL HISTORY PROCEDURE: [...] SCREENING DIGITAL Routine 12/04/2023 12:48 PM EDT MATIAS DEXA AXIAL SKELETON Routine 08/01/2018 8:57 AM EDT Asymptomatic menopausal state from Last 3 Months or Most Recently Relevant to Health Maintenance Results * MATIAS SCREENING DIGITAL (12/04/2023 12:48 PM EDT) Anatomical Region Laterality Modality Mammography 12/04/2023 8:35 AM EDT Narrative 12/04/2023 12:48 PM EDT [facility] Diagnostic Imaging Department [address] [place] [address] Patient: ALEXYS WILEYO.B./Age/Sex: 1950 - 73 - F Unit#: [id number] Location/Status: SPDIMAM/REG CLI Mnemonic/Ordering Site: [facility] Ordering Physician: LAURA GTZ DO Matias Screening Digital - 12/04/23 - 904 Report Status:Signed EXAM: [facility] Screening Digital EXAM DATE AND TIME: 12/04/2023 9:05 AM HISTORY: Screening. COMPARISON: 11/30/22, 11/26/21, 11/23/20 TECHNIQUE: Bilateral digital breast tomosynthesis was performed in the CC and MLO projections. Computer aided detection with NurseGrid 3D 3.1 was employed. TISSUE DENSITY: a. The breasts are almost entirely fatty. FINDINGS: No suspicious masses, grouped microcalcifications, or areas of architectural distortion are seen. Scattered microcalcifications are again seen. The skin and vascularity are unremarkable. IMPRESSION: Stable mammographic appearance of the breasts. No evidence of malignancy is seen. A negative mammogram in the presence of a clinically suspicious palpable abnormality does not preclude the possibility of malignancy or alter the indications for biopsy. BI-RADS: Category 2: Benign RECOMMENDATION(S): 1: Routine screening mammogram BILATERAL in 1 year. Mammogram performed at [facility] [place] [address] Dictating Physician: KARLA HALEY MD Electronically Signed by: KARLA HALEY MD Dic Date/Time: 12/04/23 1247 Sign date/Time: 12/04/23 1248 Procedure Note Karla Haley MD - 12/20/2023 [facility] Diagnostic Imaging Department [address] [place] [address] Patient: ALEXYS WILEY/Age/Sex: 1950 - 73 - F Unit#: [id number] [facility] CLI Mnemonic/Ordering Site: [facility] Ordering Physician: LAURA GTZ DO Matias Screening Digital - 12/04/23 - 0905 Report Status:Signed EXAM: [facility] Screening Digital EXAM DATE AND TIME: 12/04/2023 9:05 AM HISTORY: Screening. COMPARISON: 11/30/22, 11/26/21, 11/23/20 TECHNIQUE: Bilateral digital breast tomosynthesis was performed in the CCand MLO projections. Computer aided detection with NurseGrid 3D 3.1was employed. TISSUE DENSITY: a. The [...] Mammogram performed at [facility] [place] [address] Dictating Physician: KARLA HALEY MD Electronically Signed by: KARLA HALEY MD Dic Date/Time: 12/04/23 1247 Sign date/Time: 12/04/23 1248 us Laura Gtz DO IMG BI PROCEDURES Final Resul t * MATIAS DEXA AXIAL SKELETON (08/01/2018 8:57 AM EDT) Anatomical Region Laterality Modality Mammography 08/01/2018 7:40 AM EDT Narrative 08/01/2018 8:57 AM EDT [facility] Diagnostic Imaging Department [address] [place] [address] Patient: ALEXYS WILEY /Age/Sex: 1950 - 67 - F Unit#: [id number] Location/Status: SPDIMA/REG CLI Mnemonic/Ordering Site: [facility] Ordering Physician: FRANCISCA BUNDY MD Matias Dexa Axial Skeleton - 08/01/18848 HISTORY: The patient is a 67-year-old postmenopausal female on chronic glucocorticoid therapy, with clinical concern for metabolic bone disease. FINDINGS: Dual energy x-ray absorptiometry of the [...] 140% of that of age matched controls. This yields a T-score of 1.8 and a Z-score of 2.8 and there is therefore no evidence of osteoporosis or osteopenia here. IMPRESSION: 1. There is no evidence of osteoporosis or osteopenia. There has been a decrease of 1.0% in bone mineral density in the lumbar spine since the prior examination of 09/10/2013. There has been a decrease of 1.3% in bone mineral density in the right femur and an increase of 3.2% in bone mineral density in the left femur. 2. FRAX analysis yields a 10-year probability of major osteoporotic fracture of 9.5% and a 10-year probability of hip fracture of 0.3%. Code 59552 Dictating Physician: CHASITY MANZANO MD Electronically Signed by: CHASITY MANZANO MD Dic Date/Time: 08/01/18854 Sign date/Time: 08/01/18856 Procedure Note Chasity Manzano - 02/22/2022 [facility] Diagnostic Imaging Department [address] [place] [address] Patient: ALEXYS WILEY /Age/Sex: 1950 - 67 - F Unit#: [id number] Location/Status: [facility] Ordering Physician: FRANCISCA BUNDY MD [...] density of the femurs bilaterally is 1.237 gm/dj1lmqdw is 123% of that of young normals [...] probability of hip fracture of 0.3%. Code 77826 Dictating Physician: CHASITY MANZANO MD Electronically Signed by: CHASITY MANZANO MD Dic Date/Time: 08/01/18 0855 Sign date/Time: 08/01/1857 Francisca Bundy MD IMG BI PROCEDURES Final Result from Last 3 Months or Most Recently Relevant to Health Maintenance Care Teams Neurology Specialist Relationship Specialty Start Date End Date Myla Taylor MD [address] [place] [address] PCP - General Internal Medicine 07/15/13
== END ==
LOC: HO.SL 20:30
PROVIDERS: PCP Internal Medicine; Visit Provider Hospitalist
DX: G47.33 Obstructive sleep apnea (adult) (pediatric) (principal); Z99.89 Dependence on other enabling machines and devices; I10 Essential (primary) hypertension
CPT/HCPCS: 95811

== ENCOUNTER 2024-11-18 07:49 | Outpatient (AMB) | payer OTHER, SELFPAY ==
--- OUTSIDE RECORDS SUMMARY | 2024-11-18 07:52 | XMS_ITS | Clinical Summary ---
Author Organization [facility] ity Address [address] [place] [address] Care Team Providers Care Communications Tower Climber Name Role Phone Myla Taylor MD Primary Care Provider [phone] Surgical History Surgery Date Site/Laterality Comments TOTAL [...] Panel) 02/06/2022 Colorectal Cancer Screening: Colonoscopy 02/06/2022 Falls Risk Assessment 02/06/2022 Hepatitis C Screening 02/06/2022 Social Influencers of Health Screening 02/06/2022 Diabetes: Annual Urine Albumin-Creatinine Ratio (uACR) 02/15/2022 Diabetes: Blood Sugar Control Test (HGBA1C) 02/15/2022 Hypertension/CHF/CAD Annual BMP Blood Test 02/15/2022 Depression Screening 03/06/2024 COVID-19 Vaccine ( season) 2024 Influenza Vaccine (#1) 2024 12/21/2017 Breast Cancer Screening 12/03/2025 12/04/19 [...] AM EDT Narrative 12/04/2023 12:48 PM EDT [facility] Diagnostic Imaging Department [address] [place] [address] Patient: ALEXYS WILEYO.B./Age/Sex: 1950 - 73 - F Unit#: [id number] Location/Status: SPDIMAM/REG CLI Mnemonic/Ordering Site: [facility] Ordering Physician: LAURA GTZ DO Matias Screening Digital - 12/04/23 - 904 Report Status:Signed EXAM: [facility] Screening Digital EXAM DATE AND TIME: 12/04/2023 9:05 AM HISTORY: Screening. COMPARISON: 11/30/22, 11/26/21, 11/23/20 TECHNIQUE: Bilateral digital breast tomosynthesis was performed in the CC and MLO projections. Computer aided detection with Kabongo 3D 3.1 was employed. TISSUE DENSITY: a. [...] Mammogram performed at [facility] [place] [address] Dictating Physician: KARLA HALEY MD Electronically Signed by: KARLA AHLEY MD Dic Date/Time: 12/04/23 1247 Sign date/Time: 12/04/23 1248 Procedure Note Karla Haley MD - 12/20/2023 [facility] Diagnostic Imaging Department [address] [place] [address] Patient: ALEXYS WILEY/Age/Sex: 1950 - 73 - F Unit#: [id number] [facility] CLI Mnemonic/Ordering Site: [facility] Ordering Physician: LAURA GTZ DO Matias Screening Digital - 12/04/23 - 0905 Report Status:Signed EXAM: [facility] Screening Digital EXAM DATE AND TIME: 12/04/2023 9:05 AM HISTORY: Screening. COMPARISON: 11/30/22, 11/26/21, 11/23/20 TECHNIQUE: Bilateral digital breast tomosynthesis was performed in the CCand MLO projections. Computer aided detection with Kabongo 3D 3.1was employed. TISSUE DENSITY: a. The [...] Mammogram performed at [facility] [place] [address] Dictating Physician: KARLA HALEY MD Electronically Signed by: KARLA HALEY MD Dic Date/Time: 12/04/23 1247 Sign date/Time: 12/04/23 1248 us Laura Gtz DO IMG BI PROCEDURES Final Resul t * MATIAS DEXA AXIAL SKELETON (08/01/2018 8:57 AM EDT) Anatomical Region Laterality Modality Mammography 08/01/2018 7:40 AM EDT Narrative 08/01/2018 8:57 AM EDT [facility] Diagnostic Imaging Department [address] [place] [address] Patient: ALEXYS WILEY /Age/Sex: 1950 - 67 - F Unit#: [id number] Location/Status: SPDIMA/REG CLI Mnemonic/Ordering Site: [facility] Ordering [...] probability of hip fracture of 0.3%. Code 16926 Dictating Physician: CHASITY MANZANO MD Electronically Signed by: CHASITY MANZANO MD Dic Date/Time: 08/01/18854 Sign date/Time: 08/01/18856 Procedure Note Chasity Manzano - 02/22/2022 [facility] Diagnostic Imaging Department [address] [place] [address] Patient: ALEXYS WILEY /Age/Sex: 1950 - 67 - F Unit#: [id number] Location/Status: [facility] Mnemonic[facility] Ordering Physician: FRANCISCA BUNDY MD Matias Dexa [...] density of the femurs bilaterally is 1.237 gm/dr9lgjzw is 123% of that of young normals [...] probability of hip fracture of 0.3%. Code 49027 Dictating Physician: CHASITY MANZANO MD Electronically Signed by: CHASITY MANZANO MD Dic Date/Time: 08/01/18 0855 Sign date/Time: 08/01/1857 Francisca Bundy MD IMG BI PROCEDURES Final Result from Last 3 Months or Most Recently Relevant to Health Maintenance Care Teams Communications Tower Climber Relationship Specialty Start Date End Date Myla Taylor MD [address] [place] [id number] PCP - General Internal Medicine 07/15/13
--- OUTSIDE RECORDS SUMMARY | 2024-11-18 07:52 | XMS_ITS | Continuity of Care Document ---
Author Name [facility], Medical Address [address] [place] [id number] Organization Unknown Address [address] [place] [address] Medications No known medications Problems No known problems
--- OUTSIDE RECORDS SUMMARY | 2024-11-18 07:52 | XMS_ITS | Encounter Summary ---
Author Organization [facility] Address [address] [place] [address] Encounters * CPT with Medical [facility] at [employer] on 2024-11-05 { reasonForRequest : asthma attack, having trouble breathing and coughing, bones aresore , patientReports : Cough, fever greater than 2 days ; History of asthma, increased use of inhaler; Cough; Shortness of breath with exertion , denies :[ Increased work of breathing/labored with or without fever , Unable to speak in full sentences without distress , Discoloration of skin -cyanosis , Needs to sleep sitting up, can t catch breath , Shortness of breath in setting of confusion , COPD&q uot;, Sputum increase , Pain with inspiration ], chiefComplaints :&qu ot;Breathing Problems , pmh : Hyperlipidemia, Hypertension, Asthma, Diabetes Madiha litus Type 2, Fibromyalgia , allergies : Morphine, Topamax, Seroquel ,&quot ;otherAllergies :null, painAssessment : , visitOutcome : &q uot;, additionalComments : 74 y.o female complains of Breathing Problems\nPt is calling for shortness of breath with cough. She has had symptoms for 3 days, she has been taking her nebs and inhalers. \nShe has a h/o asthma She denies a prod cough just dry. \nShe also has body aches .She did have chills the other day , no fever. \nShe has been trying some cough medicine but not helping \nShe is talking in full sentences , she did not have a wheeze but had just had a neb and stated she did have one earlier\nI provided information on the mobile health provider response time and advised the patient and/or caregiver to monitor reported signs and symptoms. I discussed the warning signs of when to seek emergency care. } Patient complains of nasal congestion, sore throat, tiredness increased, difficulty breathing and decreased appetite times five days. Patient reports she was able to eat some dinner last night, has been sipping water. Patient reports using albuterol nebulizer every six hours with good effect. Patient denies weakness, dizziness Vomiting, diarrhea, or any other pain or complaint. Patient pink warm dry lung sounds clear negative increased work of breathing positive full sentences abdomen soft, nontender extremities unremarkable no edema noted. Test and medication administered as ordered without complication using five rights. Red flags, supportive care, patient education plan return instructions discussed with patient. Patient demonstrates understanding of care and plan, was given an opportunity to ask questions, appear satisfied with visit. Patient assisted to sign up for good RX. ORAL_MEDICATION, POC_FLU_STREP, COVID_TEST Written by Medical [facility] on 2024-11-05
--- OUTSIDE RECORDS SUMMARY | 2024-11-18 07:52 | XMS_ITS | Clinical Summary ---
Author Organization [facility] Address [address] [facility] [address] [place] [phone] Phone Care Team Providers Care Collection Clerk Name Role Phone Myla Taylor MD Primary Care Provider [phone] Allergies Active Allergy Reactions Criticality Noted Date Comments Amitriptyline Palpitations Low 02/03/2017 Lactose Diarrhea 02/03/2017 Latex Itching 02/03/2017 Oxycodone-Acetaminophen Palpitations Low 03/30/2016 Topiramate Palpitations Low 03/30/2016 Medications atorvastatin (LIPITOR) 40 MG tablet Take by mouth. 12/15/19 22 Active aspirin 81 MG EC tablet 05/24/19 23 Active clobetasol (TEMOVATE) 0.05 % cream 05/13/19 23 Active upadacitinib (RINVOQ) 15 mg ER 24 hr tablet Take 15 mg by mouth. 04/08/19 23 Active ANORO ELLIPTA 62.5-25 mcg/actuation diskus inhaler Inhale 1 puff into the lungs daily. 05/07/19 23 Active tacrolimus (PROTOPIC) 0.1 % ointment 05/13/19 23 Active neomycin-polymyxin B-dexamethasone (MAXITROL) 3.5 mg/g-10,000 unit/g-0.1 % Oint 05/07/19 23 Active NYSTOP powder 05/03/19 23 Active ketoconazole (NIZORAL) 2 % shampoo 05/13/19 23 Active gabapentin (NEURONTIN) 800 MG tablet Take 800 mg by mouth 3 (three) times a day as needed. Active furosemide (LASIX) 20 MG tablet every third day. 05/24/19 23 Active estradioL (ESTRACE) 0.01 % (0.1 mg/gram) vaginal cream Place vaginally 3 (three) times a week on Monday, Monday, Monday. 04/04/19 23 Active DULoxetine (CYMBALTA) 60 MG capsule Take 60 mg by mouth 2 (two) times a day. 05/24/19 23 Active dicyclomine (BENTYL) 10 MG capsule as needed. 05/24/19 23 Active diclofenac sodium (VOLTAREN) 1 % Gel 05/22/19 23 Active clotrimazole-betam ethasone (LOTRISONE) cream Apply topically. Active albuterol 2.5 mg /3 mL (0.083 %) nebulizer solution Inhale 1 vial into the lungs. Active vit C/E/Zn/coppr/lutei n/zeaxan (PRESERVISION AREDS-2 ORAL) Take by mouth. A ctive metoprolol tartrate (LOPRESSOR) 50 MG tablet Take 100 mg by mouth daily. 02/11/20 22 Active multivitamin per tablet 05/24/19 23 Active ramelteon (ROZEREM) 8 mg tablet Take 8 mg by mouth nightly at bedtime. 04/04/19 24 Active fluticasone propionate (FLONASE) 50 mcg/actuation nasal spray 2 sprays by Nasal route daily as needed for allergies. 02/21/20 23 Active desonide (DESOWEN) 0.05 % cream Apply topically daily as needed. 01/21/20 23 Active ibuprofen (ADVIL,MOTRIN) 800 MG tablet Take 800 mg by mouth every 6 (six) hours as needed. 02/10/20 23 Active montelukast (SINGULAIR) 10 mg tablet Take 10 mg by mouth nightly at bedtime. 03/27/19 24 Active omeprazole (PRILOSEC) 40 MG capsule Take 40 mg by mouth daily. 10/21/19 23 Active ondansetron (ZOFRAN-ODT) 4 MG disintegrating tablet Take 4 mg by mouth every 8 (eight) hours. 02/21/20 23 Active albuterol 90 mcg/actuation inhaler Inhale 2 puffs into the lungs every 4 (four) hours as needed for wheezing or shortness of breath/dyspnea. 02/15/20 Active cyclobenzaprine (FLEXERIL) 10 MG tablet Take 10 mg by mouth as needed. 05/10/19 24 Active triamcinolone acetonide 0.1 % cream 09/19/19 24 Active ONETOUCH ULTRA2 METER Misc meter by Miscellaneous route as needed. 1 each 12/11/19 Active lancets (ONETOUCH ULTRASOFT) Misc 1 each by Miscellaneous route as needed. 100 each 3 12/11/19 Active valsartan (DIOVAN) 80 MG tablet Take 80 mg by mouth daily. 01/29/20 Active topiramate (TOPAMAX) 25 MG tablet Take 25 mg by mouth daily. 01/26/20 Active FEROSUL 325 mg (65 mg iron) tablet Take 325 mg by mouth daily with breakfast. 01/29/20 Active lancets (ONETOUCH DELICA PLUS LANCET) 33 gauge Misc Test blood sugar twice a day 200 each 3 02/27/20 Active ONETOUCH ULTRA TEST Strp strips Test blood sugar twice a day 200 strip 3 02/27/20 24 Active BELSOMRA 10 mg tablet Take 10 mg by mouth nightly at bedtime. 05/28/19 Active hydroCHLOROthiazid e 25 MG tablet Take 25 mg by mouth daily. 06/04/19 25 Active ALVESCO 160 mcg/actuation inhaler Inhale 1 puff into the lungs 2 (two) times a day. 05/07/19 Active amLODIPine (NORVASC) 5 MG tablet Take 5 mg by mouth daily. 05/23/19 25 Active cyanocobalamin, vitamin B-12, 1000 MCG tabletIndications: B12 deficiency TAKE 1 TABLET BY MOUTH ONCE DAILY 30 tablet 5 09/14/19 25 Active metFORMIN (GLUCOPHAGE-XR) 500 MG 24 hr tabletIndications: Type 2 diabetes mellitus with peripheral neuropathy TAKE (2) TABLETS BY MOUTH TWICE DAILY IN THE MORNING AND AFTERNOON 360 tablet 3 10/18/19 25 Active SITagliptin phosphate (JANUVIA) 100 MG tabletIndications: Type 2 diabetes mellitus with peripheral neuropathy TAKE 1 TABLET BY MOUTH ONCE DAILY 90 tablet 3 10/18/19 25 Active Active Problems Problem Noted Date Diagnosed Date B12 deficiency 10/16/2023 Type 2 diabetes mellitus with peripheral neuropa thy 05/26/2022 Assessment & Plan (07/30/2024 9:49 AM EDT): Control is very good based upon the patient's SMBG readings. She is not using any medications that can cause hypoglycemia. She had seen an ad on her computer for ozempic gummies. Discussed that there has not been any official release of ozempic gummies, plus would not use with the januvia. She is fine not using ozempic she had seern and wanted to question use of it. Will maintain her regimen. Continue to work on eating healthy and being active. To call or message with any issues managing her glucose levels. Up to date with ophtho. Labs ordered. I have maintained a long- term, longitudinal relationship with this patient, overseeing care of chronic conditions, including diabetes. This care relationship has significantly influenced my decision-making and treatment plans during today's encounter. Assessment & Plan (01/30/2024 9:28 AM EST): Control is very good based upon the patient's SMBG readings. She is not using any medications that can cause hypoglycemia. She has been having worsening of her diarrhea. Will have her trial lowering her metformin to 7561-8745 mg daily to see if this helps. Gave her written instructions on how to lower the dosing and restart if no improvement. Continue to work on eating healthy and being active. To call or message with any issues managing her glucose levels. Up to date with ophtho. Labs ordered Assessment & Plan (08/08/2023 10:28 AM EDT): Control is good based upon the patient's SMBG readings. She is not using any medications to cause hypoglycemia. Will maintain her regimen. If she has any further issues with needing cortisone injections, can consider the use of short term insulin to prevent the highs if needed. Continue to work on eating healthy and being active. To call or message with any issues managing her glucose levels. Up to date with ophtho. Labs ordered today Assessment & Plan (04/17/2023 10:39 AM EST): Good control by SMBG. Last A1c 6.7% in 01/2023. Patient remains on Januvia 100 mg daily and metformin extended release 500 mg 2 tablets twice a day. Some GI issues more recently including constipation alternating with diarrhea. Suggested to decrease the metformin to 1 tablet twice a day to see if GI issues get any better. Continue the Januvia for now. Have nonfasting blood work soon. If fasting blood sugars are over 140-150 repeatedly with less metformin we may add an SGLT2 inhibitor like Jardiance. We discussed pros and cons of these medications. Encouraged to increase physical activity with a goal of 30 minutes most days. Assessment & Plan (01/20/2023 10:53 AM EST): Control is good based upon the patient's SMBG readings. She is not using any medications to cause hypoglycemia. Will maintain her regimen. Continue to work on eating healthy and being active. To call or message with any issues managing her glucose levels. Up to date with opho. Labs ordered today Assessment & Plan (10/14/2022 7:30 AM EDT): Control is good based upon the patient's SMBG readings. No frequent or severe hypoglycemia. Will maintain her current regimen. Continue to work on eating healthy and being active. To call or message with any issues managing her glucose levels. Up to date with ophtho. Labs ordered to do prior to next visit. Assessment & Plan (05/26/2022 3:45 PM EDT): Good control remains by recent SMBG. Recent A1c is not available. He is on Januvia 100 mg daily and metformin 1000 mg twice a day without any side effects. Plan to keep current treatment. Continue to work on healthy meal plan and regular physical activity. Patient has follow-up with her dietitian, Daphney next week. To have labs today. Follow-up in 3 to 4 months Hypertension 06/20/2017 10/12/2022 Hyperlipidemia 06/20/2017 10/12/2022 Encounters Date Type Department Care Team Description 10/16/2024 Refill [facility] [address] [place] [address] [place] [address] Jaylene Nguyen PA-C Medication Refill 09/12/2024 Refill [facility] [address] [place] [address] Mary Domingo MD Medication Refill 09/05/2024 Refill [facility] [address] [place] [address] Claudia Swenson MA Medication Refill from Last 3 Months Social History Tobacco Use Types Packs/Day Years Used Date Smoking Tobacco: Never Smokeless Tobacco: Never Tobacco Cessation:Counseling Given: Not Answered Alcohol Use Standard Drinks/Week Comments Never 0 (1 standard drink = 0.6 oz pur e alcohol) Education Answer Date Recorded Are you interested in more education? Not on vahe e 07/01/2022 Are you concerned about learning? Not on file 07/01/2022 No 07/01/2022 No 07/01/2022 Digital Access Answer Date Recorded No 07/30/2022 No 07/30/2022 Reliable internet access at home? Not on file 07/30/2022 Device with a working camera? Not on file Comments Unknown Sex and Gender Information Value Date Recorded Sex Assigned at Not on file Legal Sex Female 9:58 PM EDT Gender Identity Not on file Sexual Orientation Not on file Last Filed Vital Signs Vital Sign Reading Time Taken Comments Blood Pressure 148/82 07/30/2024 8:50 AM EDT Pulse 60 07/30/2024 8:50 AM EDT Temperature - - Respiratory Rate - - Oxygen Saturation 99% 07/30/2024 8:50 AM EDT Inhaled Oxygen Concentration - - Weight 75.6 kg (166 lb 9.6 oz) 07/30/2024 8:50 A M EDT Height 160 cm (5' 2.99 ) 07/30/2024 8:50 AM EDT Body Mass Index 29.52 07/30/2024 8:50 AM EDT Plan of Treatment Upcoming Encounters Date Type Department Care Team (Late st Contact Info) Description 12/23/2024 9:00 AM EDT Office Visit [facility] [address] [place] [address] Tati Stringer MD [address] [place] [address] [address] [place] [address] 04/01/2025 2:10 PM EST Office Visit [facility] [address] [place] [address] Jaylene Nguyen PA-C [address] [place] [address] [email or web address] Health Maintenance Due Date Last Done Comments COVID-19 VACCINE (#1) 1957 DEPRESSION SCREENING 1964 HEPATITIS C SCREENING 1970 MAMMOGRAM 1992 COLOGUARD 1997 COLONOSCOPY 1997 COLORECTAL CANCER SCREENING 1997 FIT TEST 1997 FOBT 1997 SIGMOIDOSCOPY 1997 VIRTUAL COLONOSCOPY 1997 RSV VACCINE (1 - Risk 60-74 years 1-dose series) 2012 ZOSTER VACCINES (1 of 2) 01/16/2013 11/21/2012 PNEUMOCOCCAL VACCINES (50+ years) (2 of 2 - PCV) 04/26/2014 04/26/2013 OSTEOPOROSIS SCREENING INITIAL (ONE-TIME) 2017 DIABETIC EYE EXAM 05/25/2022 INFLUENZA VACCINE (#1) 2024 , 12/09/2020, 12/11/2019, Additional history exists HEMOGLOBIN A1C 10/15/2024 04/17/2024, 01/05, 07/25/2023, Additional history exists BLOOD PRESSURE 01/30/2025 07/30/2024 CREATININE LEVEL 04/17/2025 04/17/2024, , 10/11/2023, Additional history exists LIPID PANEL 04/17/2025 04/17/2024 POTASSIUM LEVEL 04/17/2025 04/17/2024, 01/05, 10/11/2023, Additional history exists Adult Td,Tdap Booster 06/06/2032 06/06/2022, 013 SMOKING STATUS SCREENING (Once After 26 Yrs) Completed 07/30/2024 HEPATITIS A VACCINES Aged Out No long er eligible based on patient's age to complete this topic HIB VACCINES Aged Out No longer eligi ble based on patient's age to complete this topic MENINGOCOCCAL VACCINES (ACWY) Aged Out No longer eligible based on patient's age to complete this topic MENINGOCOCCAL VACCINES (B) Aged Out N o longer eligible based on patient's age to complete this topic Medical Devices Not on file Procedures Procedure Name Priority Date/Time Associated Diagnosis Comments HEMOGLOBIN A1C Routine 04/17/2024 9:18 AM EST Type 2 diabetes mellitus with peripheral neuropathy LIPID PANEL Routine 04/17/2024 9:18 AM EST Type 2 diabetes mellitus with peripheral neuropathy COMPREHENSIVE METABOLIC PANEL Routine 04/17/2024 9:18 AM EST Type 2 diabetes mellitus with peripheral neuropathy from Last 3 Months or Most Recently Relevant to Health Maintenance Results * (ABNORMAL) Comprehensive metabolic panel (04/17/2024 9:18 AM EST) SODIUM 137 133 - 146 mmol/L [facility] POTASSIUM 4.5 3.3 - 5.1 mmol/L [facility] CHLORIDE 102 96 - 108 mmol/L [facility] CO2 25 21 - 35 mmol/L [facility] BUN 16 6 - 19 mg/dL [facility] CREATININE 0.70 0.5 - 1.5 mg/dL [facility] GLUCOSE 134(H) 70 - 99 mg/dL [facility] ALBUMIN 4.2 3.9 - 4.8 g/dL [facility] TOTAL PROTEIN 6.3(L) 6.5 - 8.0 g/dL [facility] CALCIUM 9.6 8.4 - 10.3 mg/dL [facility] ALKALINE PHOSPHATASE 77 39 - 117 U/L [facility] TOTAL BILIRUBIN 0.3 0.0 - 1.2 mg/dL [facility] AST 21 0 - 37 U/L [facility] ALT 49(H) 0 - 40 U/L [facility] GLOBULIN 2.1 1 - 4.8 g/dL [facility] EGFR 92 >59 mL/min/1.7 3m2 [facility] Comment:Estimated glomerular filtration rate calculated using the CKD-EPI refit equation. ANION GAP 15 10 - 20 mmol/L [facility] Blood 04/17/2024 9:18 AM EST 04/17/2024 9:25 AM EST us Tati Stringer MD LAB BLOOD ORDERABLES Final Res ult Performing Organization Address City/[facility]/ZIP Co de Phone Number [address] [address] * (ABNORMAL) Hemoglobin A1c (04/17/2024 9:18 AM EST) HEMOGLOBIN A1C 6.6(H) 4.3 - 5.8 % [facility] Blood 04/17/2024 9:18 AM EST 04/17/2024 9:25 AM EST Tati Stringer MD LAB BLOOD ORDERABLES Final Res ult Performing Organization Address [facility] de Phone Number [address] [address] * (ABNORMAL) Lipid panel (04/17/2024 9:18 AM EST) HDL 49 mg/dL [facility] Comment: Interpretation <40 mg/dL: Low HDL cholesterol (major risk factor for CHD) Greater than or equal to 60 mg/dL: High HDL cholesterol ( negative risk factor for CHD) HDL - cholesterol is affected by a number of factors, e.g. smoking, excerise, hormones, sex and age. CHOLESTEROL 158 0 - 240 mg/dL [facility] TRIGLYCERIDES 146 30 - 160 mg/dL [facility] LDL 80 50 - 129 mg/dL [facility] Comment: LDL levels in terms of risk for coronary heart disease: <100 mg/dL: Optimal 100-129 mg/dL: Near or above optimal 130-159 mg/dL: Borderline high 160-189 mg/dL: High >190 mg/dL: Very High CARDIAC RISK RATIO 3.2(L) 3.3 - 4.4 C [facility] Blood 04/17/2024 9:18 AM EST 04/17/2024 9:26 AM EST us Tati Stringer MD LAB BLOOD ORDERABLES Final Res ult [facility] [address] [place] [address] from Last 3 Months or Most Recently Relevant to Health Maintenance Insurance MEDICARE PART A & B [employer] [facility] MEDIC[facility] REPLACEMENT MEDICARE PART A & B [facility] MEDICARE REPLACEMENT MEDICARE PART A & B [facility] MEDICARE REPLACEMENT MEDICARE PART A & B Member Subscriber Plan / Payer (Ef fective 2017-Present) Name:Tresa Garza Member ID:[id number] Relation to Subscriber:Self Name:Tresa Garza Subscriber ID:[id number] Payer ID:[id number] Group ID:Not on file Type:Medicare Address: Comic Reply [address] [place] [phone] [facility] MEDICARE REPLACEMENT MEDICARE PART A & B [facility] MEDICARE REPLACEMENT MEDICARE PART A & B [facility] MEDICARE REPLACEMENT [place] [id number] Care Teams Collection Clerk Relationship Specialty Start Date End Date Myla Taylor MD [address] [place] [address] PCP - General Internal Medicine 05/10/22 Additional Source Comments The information contained in this document represents components of the legal health record. It is not the complete legal health record.[facility]
[2024-11-18 08:20] VITALS: BP 122/62; PULSE 62; O2SAT 100; BMI 29.9
--- NOTE | 2024-11-18 08:20 | A.OFFVIS_ITS ---
Vital Signs 11/18/24 08:20 Height 5 ft 3 in Weight 169 lb BMI 29.9 BP 122/62 Blood Pressure Location Rt brachial Position Sitting Pulse 62 Pulse Source Pulse Oximeter Pulse Oximetry (%) 100 Oxygen Delivery Method Room Air Intake Visit Reasons: Asthma Allergies acetaminophen (Percocet) Allergy (Severe, Verified 11/18/24 08:26) Vomitting and Diarrhea oxycodone (Percocet) Allergy (Severe, Verified 11/18/24 08:26) Tachycardia and High Blood Pressure topiramate (Topamax) Allergy (Severe, Verified 11/18/24 08:26) Tachycardia and High Blood Pressure cyanocobalamin (vitamin B12) Allergy (Unknown, Verified 11/18/24 08:26) Vomitting and Diarrhea valacyclovir Adverse Reaction (Severe, Verified 11/18/24 08:26) Hemolytic Anemia Amitriptyline Allergy (Severe, Uncoded 08/05/24 08:12) Tachycardia and High Blood Pressure latex- rash Allergy (Severe, Uncoded 08/05/24 08:12) Rash and Hives MigraLam Allergy (Severe, Uncoded 08/05/24 08:12) Vomitting and Diarrhea red meat Allergy (Severe, Uncoded 08/05/24 08:12) Vomitting and Diarrhea tomatoes, strawberrries Allergy (Severe, Uncoded 08/05/24 08:12) Vomitting and Diarrhea lactose intolerant Allergy (Unknown, Uncoded 08/05/24 08:12) vomitting and diarrhea HPI Comments Details: The patient is a 74-year-old woman with known obstructive sleep apnea history of pulmonary emboli in addition to asthma. More recently she has been dealing with significant eczema and other rashes. She was placed on Dupixent significantly improving her rash but also significant improving her breathing. She has been having issues with hoarseness. I explained to her that it may be the Anoro. She can stop the Anoro just to see if this is the culprit. In the meantime if the horses not too bad she continue the Anoro and continue to rinse with mouthwash rather water. Alvesco as a very good steroid typically does not resulting hoarseness or any thrush. She should be using it with spacer. 05/06/2021 the patient is here for a pulmonary follow-up visit. Since we last spoke many months ago she has been complaining of a chronic cough. The cough is nonproductive in nature. Usually worse at nighttime when she lays flat. Sometimes it does gag her. Sometimes she has a hard time eating because she feels like food is getting stuck while she is swallowing. Sometimes she also regurgitation food. We did briefly discuss the reflux diet and she is drinking about 4 or 5 cups of coffee a day. She is going to try to cut that down to at least a couple. In the meantime she is doing the rest the diet. We did talk about the small meals and making sure that she sleeps elevated and does not eat too late. In the meantime she did have a episode of chest pain that was evaluated at [facility]. She was briefly admitted. With a history of pulmonary emboli she did undergo a CT scan of the chest that we personally reviewed. It demonstrated that she had stable pulmonary nodules subcentimeter in nature when compared to 2016 and 2017. Therefore these are very benign nodules. She did have some air trapping was a pattern consistent with her significant asthma. As far as medications on her metoprolol was increased during that time because of the high blood pressure. Still explained to her that sometimes too much the beta fuentes can in the interrupted benefits of her respiratory medicines. The patient does have significant asthma. She is also complaining of headaches. She has been using her CPAP at nighttime. Will address the question with an overnight oximetry to make sure that she is not desaturating at nighttime. Patient also complaining of dyspnea on exertion. She has responded very well to her respiratory therapy. The patient will undergo pulmonary function studies when she returns. 07/19/2022 the patient is here for a pulmonary follow-up visit. The patient is doing a lot better. She still responding well to the immune suppression for her significant dermatitis. It is probably helping her asthma as well. She does continue her respiratory therapy but has not required a rescue inhaler. She has not required any prednisone which is reassuring. The patient did get her new CPAP machine. The APAP is set up 10-14 and her average pressure is 10. Therefore likely patient probably can tolerate a lower pressure specially with an AHI of 0.8. Will go ahead and decrease the pressure to 8-14. The patient still has a ramp of 6. She will continue using the current mask. She is getting supplies readily from the [employer]. Otherwise patient is without any other complaints. The patient will call if any other issues arise. She will follow-up in 6-8 months. 01/23/2023 the patient is here for pulmonary follow-up visit. The patient overall doing well from a respiratory status. She continues her respiratory medications with good adherence. She has not required any rescue medication and not required any prednisone. Although she has a trip planned to [place] and I will make sure she has medications that she can take in case the asthma starts worsening while she is there. The patient continues with CPAP therapy. CPAP therapy continues to be affecting beneficial. She does use for more than 4 hours a night. 08/07/2023 the patient is here for a pulmonary follow-up visit. Overall she is doing fair. She has been having issues with low oxygen levels. She does have a home pulse oximeter that sometimes she reads pulse ox in the 80s. She does get very cold hands however. Is not clear how accurate reading is. She also went to [facility] for a colonoscopy and also an upper endoscopy. Apparently she could back. The colonoscopy done because she did become hypoxic. I do not have the details of what happened. Indeed the patient was under some anesthesia effect and she does have underlying sleep apnea so the probably had a component. Will go ahead and request a chest x-ray at this time. The patient also describes some chest pressure especially when exercising. She did have an EKG at [facility] and she was told that it was okay. Will go ahead and request a cardiac stress echo to see if there is any cardiac component. She does continue on her Alvesco and also Anoro. Therapy has been affecting beneficial she denies any wheezing or coughing. She also continues uses CPAP at nighttime. The CPAP therapy again continues to be affecting beneficial. I did reassure her with a brief walking oximetry that her pulse ox was 99-100%. Heart rate was also stable. She is aware that if she is going to use her home pulse oximeter she needs to make sure that she has good perfusion to her extremities. 10/06/2023 the patient is here for a pulmonary follow-up visit. She is doing better this time. She did have a brief hospitalization at [facility]. She was having increasing dizziness and shortness of breath along with weakness. She was noted to have acute anemia. Iron deficiency. She is placed on iron. The patient also had other medication stop them have been contributing. Her ferritin level significantly low. Explained to her that with her anemia she could be experiencing some increasing dyspnea on exertion due to the decrease oxygen transport. In the meantime she continues use her respiratory therapy with good effect. [facility] The [facility] therapy has been affecting beneficial. Prior to the hospitalization the patient did have a stress echo which is reassuring. And seems like her lupus is stable at this time. 02/06/2024 the patient is here for pulmonary follow-up visit. Overall she is doing well from a respiratory status she had a [facility] where she became significantly short of breath and dizzy. She went to see her primary care doctor who called the ambulance and she went to [facility]. 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 Likely secondary to a antiviral medications she was taking. Therefore the antiviral medication was stopped, valacyclovir. Subsequently after that she was qualify with iron in her hemoglobin has steadily increased now to 11. The patient is feeling better. More respiratory status she is continue in the Alvesco in addition to the Anoro. She has also has her albuterol inhaler. She has not required, but, now going into the winter time will make sure that she has all her medications available. We did look at her CT scan of the chest that she had at [facility]. It was a CTA that ruled out PE. She does have stable pulmonary nodules that are subcentimeter in size. She also has a slight area of haziness suggesting atelectasis bilaterally. In addition to that the patient does have a mosaic pattern consistent with air trapping an asthma. Therefore no additional testing warranted at this time but will continue to monitor. Will follow-up in 6 months. If any issues arise she will call for an earlier asthma. 08/05/2024 the patient is here for pulmonary follow-up visit. Overall she is doing fair. The patient has had issues with her CPAP. Since hard time tolerating it. Her AHI is up to 11 even on the proper settings. Unfortunately she also has significant high blood pressure and difficult to control and also had significant daytime drowsiness with an [place] score elevated 11/24. Therefore she continues to have significant symptoms in regards to her sleep apnea. I will have her get a titration study to adequately treat her sleep apnea at this time. In the meantime she is complaining of some chest discomfort. She states that she was evaluated from a cardiac standpoint was okay. Will go and have her get a chest x-ray. Respiratory kwan she is doing okay. Although she is having a cough persistent and also hoarseness for the last 2 months. She attributes it to allergies. She does have significant postnasal drip with some purulent secretions. Likely chronic sinusitis. In addition to that she is using inhaled corticosteroid. Will have her get a spacer in order to minimize the irritation to the vocal cords. Will reassess in 3 months when she comes back. In the meantime will go ahead and treat her for her allergies and for sinusitis. Will have her get a chest x-ray and also sinus x-rays when she is able to do so. She has any worsening symptoms she will call otherwise will follow-up in 3 months to follow-up with her imaging studies and also her sleep study. 11/18/2024 the patient is here for a pulmonary follow-up visit. Overall she is doing okay although she was run out of some of the medications. She has been noticing worsening chest tightness and wheezing on a regular basis. She does not have a rescue inhaler this time. Will make sure to update all her medications to the pharmacy to make sure that she is supplied all her respiratory inhalers. In the meantime she did have a chest x-ray back in August 2024 at [facility] without any acute disease which is personally by me. The patient also had been on Dupixent in the past and had a great reaction to the Dupixent. However, she has a stop it due to skin reaction. Therefore, we can always consider a different biologic for her if the optimize respiratory therapy is not sufficient. She does have an elevated IgE level. Will go ahead and repeat the levels to see if still the case and we can always consider Xolair in the near future. The patient follow-up in a couple months. If she has any issues prior to this she will call for an earlier assessment. [facility] Medical History (Updated 08/05/24 @ 08:44 by Jeremy Lomeli MD) Hypertension Limb swelling Discoid lupus COVID-19 Pulmonary nodules Chronic cough Chronic allergic rhinitis Atopic dermatitis RUCHI on CPAP Asthma-COPD overlap syndrome Surgical History (Updated 09/06/21 @ 22:35 by Jeremy Lomeli MD) Asthma Social History Patient Tobacco Use Status: Never used Tobacco Review of Systems Const Denies body aches, Reports daytime sleepiness, Reports difficulty sleeping and Denies malaise Eyes Denies change in vision ENT Denies change in voice and Reports hoarseness Card Reports dyspnea on exertion Resp Reports cough, Reports dyspnea on exertion and Reports wheezing GI Denies constipation, Reports dyspepsia, Denies diarrhea, Denies nausea and Denies vomiting Musc Reports no additional complaints Skin/Breast Denies pruritus and Denies rash Endo Denies flushing Nba/Lymph Denies lymphadenopathy Aller/Immun Reports wheezing Physical Exam Vital Signs: Last Vital Signs Pulse 62 11/18/24 08:20 BP 122/62 11/18/24 08:20 Pulse Ox 100 11/18/24 08:20 Oxygen Delivery Method Room Air 11/18/24 08:20 BMI result Body Mass Index 29.9 Const General: alert Orientation/consciousness: patient oriented x3 Neck Neck: Yes normal visual inspection, Yes full ROM and Yes no lymphadenopathy Chest Chest palpation & inspection: normal inspection of the chest Resp Effort & Inspection: normal respiratory effort Auscultation: no rales, no rhonchi, no wheezes and diminished lung sounds Cardio Rate: regular rate Rhythm: regular rhythm Heart sounds: S1 normal heart sound present and S2 normal heart sound present GI Palpation (GI): Soft to palpation and nontender Auscultation: normal bowel sounds Skin General skin exam: no rashes or lesions noted Neuro General: patient oriented x3 Extrem General: Yes no clubbing, cyanosis or edema Assessment & Plan Assessment & Plan (1) Dyspnea: Code(s): R06.00 - Dyspnea, unspecified Category: Medical Qualifiers: Dyspnea type: dyspnea on exertion Qualified Code(s): R06.09 - Other forms of dyspnea (2) RUCHI on CPAP: Code(s): G47.33 - Obstructive sleep apnea (adult) (pediatric); Z99.89 - Dependence on other enabling machines and devices Category: Medical (3) Chronic allergic rhinitis: Code(s): J30.9 - Allergic rhinitis, unspecified Category: Medical (4) Asthma: Code(s): J45.909 - Unspecified asthma, uncomplicated Category: Surgical Qualifiers: Asthma complication type: with acute exacerbation Asthma persistence: persistent Asthma severity: moderate Qualified Code(s): J45.41 - Moderate persistent asthma with (acute) exacerbation (5) Chronic cough: Code(s): R05.3 - Chronic cough Category: Medical (6) Pulmonary nodules: Comment: Stable for more than 5 years based on her CT scan from September 2020 Code(s): R91.8 - Other nonspecific abnormal finding of lung field Category: Medical (7) Discoid lupus: Code(s): L93.0 - Discoid lupus erythematosus Category: Medical Plan Continue Anoro and Alvesco as prescribed, add spacer AFTAB/nebulizer as needed consider Biologic therapy if no better/ Had an adverse effect to Dupixent Continue APAP therapy at night, Dymista continue singulair F/U 2-3 months Medications: New ipratropium bromide administer into each nostril 2 sprays intranasal TID PRN 15 mL 6RF allergy symptoms Refilled albuterol sulfate 2.5 mg (3 mL) inhalation BID 180 mL 11RF shortness of breath or wheezing 30 days J44.9 - Chronic obstructive pulmonary disease, unspecified ciclesonide 160 mcg/actuation (Alvesco) 1 puff PO BID 18.3 ea 11RF azelastine-fluticasone 137-50 mcg/spray (Dymista) administer into each nostril 1 spray intranasal BID 23 grams 11RF albuterol sulfate 90 mcg/actuation 2 inhalations inhalation Q6H PRN 18 grams 12RF shortness of breath or wheezing 30 days J44.9 - Chronic obstructive pulmonary disease, unspecified umeclidinium-vilanterol 62.5-25 mcg/actuation (Anoro Ellipta) 1 ea PO DAILY 60 ea 11RF Coding Level of Care Code Est Pt Level 4 (34790) Complex EM visit Add On G2211 Diagnoses Dyspnea on exertion R06.09 Dyspnea type: dyspnea on exertion RUCHI on CPAP G47.33; Z99.89 Chronic allergic rhinitis J30.9 Moderate persistent asthma with acute exacerbation J45.41 Asthma complication type: with acute exacerbation Asthma persistence: persistent Asthma severity: moderate Chronic cough R05.3 Pulmonary nodules R91.8 Discoid lupus L93.0 Time Spent (min) 17
== END 2024-11-18 08:50 | disposition home or self-care (01) ==
LOC: HO.HPS 07:49
PROVIDERS: PCP Internal Medicine; Visit Provider Hospitalist
DX: R06.09 Other forms of dyspnea (principal); G47.33 Obstructive sleep apnea (adult) (pediatric); Z99.89 Dependence on other enabling machines and devices; J30.9 Allergic rhinitis, unspecified; J45.41 Moderate persistent asthma with (acute) exacerbation; R05.3 Chronic cough; R91.8 Other nonspecific abnormal finding of lung field; L93.0 Discoid lupus erythematosus
CPT/HCPCS: 99214; G2211

== ENCOUNTER → 2024-11-18 07:49 | Outpatient (BNVA) | payer OTHER, SELFPAY | PROVIDERS: PCP Internal Medicine; Visit Provider Hospitalist | DX: G47.33 Obstructive sleep apnea (adult) (pediatric) (principal); R07.9 Chest pain, unspecified; R06.09 Other forms of dyspnea; J44.9 Chronic obstructive pulmonary disease, unspecified; Z99.89 Dependence on other enabling machines and devices; I10 Essential (primary) hypertension; R05.3 Chronic cough; L93.0 Discoid lupus erythematosus | CPT/HCPCS: 99212 ==

== ENCOUNTER 2024-12-24 10:40 | Outpatient (AMB) | payer OTHER, SELFPAY ==
[2024-12-24 10:53] VITALS: BP 148/72; PULSE 65; O2SAT 95; BMI 30.8
--- NOTE | 2024-12-24 10:53 | MHC.OFFVIS ---
Vital Signs 12/24/24 10:53 Height 5 ft 3 in Weight 174 lb 2.643 oz BMI 30.8 BP 148/72 H Blood Pressure Location Lt brachial Position Sitting Pulse 65 Pulse Source Pulse Oximeter Pulse Oximetry (%) 95 Oxygen Delivery Method Room Air Intake Visit Reasons: solitary pulmonary Environmental Services Manager Required: No Accompanied by: Self / Same As Patient Allergies acetaminophen (Percocet) Allergy (Severe, Verified 12/24/24 10:57) Vomitting and Diarrhea oxycodone (Percocet) Allergy (Severe, Verified 12/24/24 10:57) Tachycardia and High Blood Pressure topiramate (Topamax) Allergy (Severe, Verified 12/24/24 10:57) Tachycardia and High Blood Pressure cyanocobalamin (vitamin B12) Allergy (Unknown, Verified 12/24/24 10:57) Vomitting and Diarrhea valacyclovir Adverse Reaction (Severe, Verified 12/24/24 10:57) Hemolytic Anemia Amitriptyline Allergy (Severe, Uncoded 08/05/24 08:12) Tachycardia and High Blood Pressure latex- rash Allergy (Severe, Uncoded 08/05/24 08:12) Rash and Hives MigraLam Allergy (Severe, Uncoded 08/05/24 08:12) Vomitting and Diarrhea red meat Allergy (Severe, Uncoded 08/05/24 08:12) Vomitting and Diarrhea tomatoes, strawberrries Allergy (Severe, Uncoded 08/05/24 08:12) Vomitting and Diarrhea lactose intolerant Allergy (Unknown, Uncoded 08/05/24 08:12) vomitting and diarrhea HPI Comments Details: The patient is a 74-year-old woman with known obstructive sleep apnea history of pulmonary emboli in addition to asthma. More recently she has been dealing with significant eczema and other rashes. She was placed on Dupixent significantly improving her rash but also significant improving her breathing. She has been having issues with hoarseness. I explained to her that it may be the Anoro. She can stop the Anoro just to see if this is the culprit. In the meantime if the horses not too bad she continue the Anoro and continue to rinse with mouthwash rather water. Alvesco as a very good steroid typically does not resulting hoarseness or any thrush. She should be using it with spacer. 05/06/2021 the patient is here for a pulmonary follow-up visit. Since we last spoke many months ago she has been complaining of a chronic cough. The cough is nonproductive in nature. Usually worse at nighttime when she lays flat. Sometimes it does gag her. Sometimes she has a hard time eating because she feels like food is getting stuck while she is swallowing. Sometimes she also regurgitation food. We did briefly discuss the reflux diet and she is drinking about 4 or 5 cups of coffee a day. She is going to try to cut that down to at least a couple. In the meantime she is doing the rest the diet. We did talk about the small meals and making sure that she sleeps elevated and does not eat too late. In the meantime she did have a episode of chest pain that was evaluated at [facility]. She was briefly admitted. With a history of pulmonary emboli she did undergo a CT scan of the chest that we personally reviewed. It demonstrated that she had stable pulmonary nodules subcentimeter in nature when compared to 2016 and 2017. Therefore these are very benign nodules. She did have some air trapping was a pattern consistent with her significant asthma. As far as medications on her metoprolol was increased during that time because of the high blood pressure. Still explained to her that sometimes too much the beta fuentes can in the interrupted benefits of her respiratory medicines. The patient does have significant asthma. She is also complaining of headaches. She has been using her CPAP at nighttime. Will address the question with an overnight oximetry to make sure that she is not desaturating at nighttime. Patient also complaining of dyspnea on exertion. She has responded very well to her respiratory therapy. The patient will undergo pulmonary function studies when she returns. 07/19/2022 the patient is here for a pulmonary follow-up visit. The patient is doing a lot better. She still responding well to the immune suppression for her significant dermatitis. It is probably helping her asthma as well. She does continue her respiratory therapy but has not required a rescue inhaler. She has not required any prednisone which is reassuring. The patient did get her new CPAP machine. The APAP is set up 10-14 and her average pressure is 10. Therefore likely patient probably can tolerate a lower pressure specially with an AHI of 0.8. Will go ahead and decrease the pressure to 8-14. The patient still has a ramp of 6. She will continue using the current mask. She is getting supplies readily from the [employer]. Otherwise patient is without any other complaints. The patient will call if any other issues arise. She will follow-up in 6-8 months. 01/23/2023 the patient is here for pulmonary follow-up visit. The patient overall doing well from a respiratory status. She continues her respiratory medications with good adherence. She has not required any rescue medication and not required any prednisone. Although she has a trip planned to [place] and I will make sure she has medications that she can take in case the asthma starts worsening while she is there. The patient continues with CPAP therapy. CPAP therapy continues to be affecting beneficial. She does use for more than 4 hours a night. 08/07/2023 the patient is here for a pulmonary follow-up visit. Overall she is doing fair. She has been having issues with low oxygen levels. She does have a home pulse oximeter that sometimes she reads pulse ox in the 80s. She does get very cold hands however. Is not clear how accurate reading is. She also went to [facility] for a colonoscopy and also an upper endoscopy. Apparently she could back. The colonoscopy done because she did become hypoxic. I do not have the details of what happened. Indeed the patient was under some anesthesia effect and she does have underlying sleep apnea so the probably had a component. Will go ahead and request a chest x-ray at this time. The patient also describes some chest pressure especially when exercising. She did have an EKG at [facility] and she was told that it was okay. Will go ahead and request a cardiac stress echo to see if there is any cardiac component. She does continue on her Alvesco and also Anoro. Therapy has been affecting beneficial she denies any wheezing or coughing. She also continues uses CPAP at nighttime. The CPAP therapy again continues to be affecting beneficial. I did reassure her with a brief walking oximetry that her pulse ox was 99-100%. Heart rate was also stable. She is aware that if she is going to use her home pulse oximeter she needs to make sure that she has good perfusion to her extremities. 10/06/2023 the patient is here for a pulmonary follow-up visit. She is doing better this time. She did have a brief hospitalization at [facility]. She was having increasing dizziness and shortness of breath along with weakness. She was noted to have acute anemia. Iron deficiency. She is placed on iron. The patient also had other medication stop them have been contributing. Her ferritin level significantly low. Explained to her that with her anemia she could be experiencing some increasing dyspnea on exertion due to the decrease oxygen transport. In the meantime she continues use her respiratory therapy with good effect. She also continues to be on CPAP at nighttime. The CPAP therapy has been affecting beneficial. Prior to the hospitalization the patient did have a stress echo which is reassuring. And seems like her lupus is stable at this time. 02/06/2024 the patient is here for pulmonary follow-up visit. Overall she is doing well from a respiratory status she had a [facility] where she became significantly short of breath and dizzy. She went to see her primary care doctor who called the ambulance and she went to [facility]. 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 Likely secondary to a antiviral medications she was taking. Therefore the antiviral medication was stopped, valacyclovir. Subsequently after that she was qualify with iron in her hemoglobin has steadily increased now to 11. The patient is feeling better. More respiratory status she is continue in the Alvesco in addition to the Anoro. She has also has her albuterol inhaler. She has not required, but, now going into the winter time will make sure that she has all her medications available. We did look at her CT scan of the chest that she had at [facility]. It was a CTA that ruled out PE. She does have stable pulmonary nodules that are subcentimeter in size. She also has a slight area of haziness suggesting atelectasis bilaterally. In addition to that the patient does have a mosaic pattern consistent with air trapping an asthma. Therefore no additional testing warranted at this time but will continue to monitor. Will follow-up in 6 months. If any issues arise she will call for an earlier asthma. 08/05/2024 the patient is here for pulmonary follow-up visit. Overall she is doing fair. The patient has had issues with her CPAP. Since hard time tolerating it. Her AHI is up to 11 even on the proper settings. Unfortunately she also has significant high blood pressure and difficult to control and also had significant daytime drowsiness with an Inchelium score elevated 11/24. Therefore she continues to have significant symptoms in regards to her sleep apnea. I will have her get a titration study to adequately treat her sleep apnea at this time. In the meantime she is complaining of some chest discomfort. She states that she was evaluated from a cardiac standpoint was okay. Will go and have her get a chest x-ray. Respiratory kwan she is doing okay. Although she is having a cough persistent and also hoarseness for the last 2 months. She attributes it to allergies. She does have significant postnasal drip with some purulent secretions. Likely chronic sinusitis. In addition to that she is using inhaled corticosteroid. Will have her get a spacer in order to minimize the irritation to the vocal cords. Will reassess in 3 months when she comes back. In the meantime will go ahead and treat her for her allergies and for sinusitis. Will have her get a chest x-ray and also sinus x-rays when she is able to do so. She has any worsening symptoms she will call otherwise will follow-up in 3 months to follow-up with her imaging studies and also her sleep study. 11/18/2024 the patient is here for a pulmonary follow-up visit. Overall she is doing okay although she was run out of some of the medications. She has been noticing worsening chest tightness and wheezing on a regular basis. She does not have a rescue inhaler this time. Will make sure to update all her medications to the pharmacy to make sure that she is supplied all her respiratory inhalers. In the meantime she did have a chest x-ray back in August 2024 at [facility] without any acute disease which is personally by me. The patient also had been on Dupixent in the past and had a great reaction to the Dupixent. However, she has a stop it due to skin reaction. Therefore, we can always consider a different biologic for her if the optimize respiratory therapy is not sufficient. She does have an elevated IgE level. Will go ahead and repeat the levels to see if still the case and we can always consider Xolair in the near future. The patient follow-up in a couple months. If she has any issues prior to this she will call for an earlier assessment. 12/24/2024 the patient is here for hospital follow-up visit. Apparently she had severe vertigo and she fell and she had a significant hematoma to the right side of the face around the eye area. She was admitted to [facility] for about 4 days. She had a CT scan of the brain there which is okay without any intracranial bleeds. She did have a chest x-ray which I personally reviewed without any acute disease. Right now her breathing has been okay. She continues her respiratory therapy. She is still struggling with the CPAP CPAP therapy is beneficial for her. She is having significant air leakage through her mouth with a small nasal mask and I did provide her with an F20 AirTouch foam mask which she seems to tolerate well. The patient also struggles with the elevated pressures so therefore I decreased her pressures from 8-14 to 4 to 10. Hopefully she tolerates his pressure better if not she can always call. The patient needs to get supplies. Will go ahead and make request for supplies to her current DME company. But she understands that she needs use the machine more than 70% of the time in order to be able to get supplies from the DME company. Once we sent a script we can see if she is still active with the DME company. The patient follow-up in 6 months if she has any issues prior to this she can always call for an earlier assessment and recommendation. [facility] Medical History (Updated 08/05/24 @ 08:44 by Jeremy Lomeli MD) Hypertension Limb swelling Discoid lupus COVID-19 Pulmonary nodules Chronic cough Chronic allergic rhinitis Atopic dermatitis RUCHI on CPAP Asthma-COPD overlap syndrome Surgical History (Updated 09/06/21 @ 22:35 by Jeremy Lomeli MD) Asthma Social History Patient Tobacco Use Status: Never used Tobacco Review of Systems Const Reports body aches, Reports daytime sleepiness, Reports difficulty sleeping and Denies malaise Eyes Denies change in vision ENT Denies change in voice, Reports vertigo and Reports hoarseness Card Reports dyspnea on exertion Resp Reports cough, Reports dyspnea on exertion and Reports wheezing GI Denies constipation, Reports dyspepsia, Denies diarrhea, Denies nausea and Denies vomiting Musc Reports no additional complaints, Reports abnormal gait and Reports myalgias Skin/Breast Reports unusual bruising Neuro Reports abnormal gait and Reports vertigo Endo Denies flushing Nba/Lymph Denies lymphadenopathy Aller/Immun Reports wheezing Physical Exam Vital Signs: Last Vital Signs Pulse 65 12/24/24 10:53 BP 148/72 H 12/24/24 10:53 Pulse Ox 95 12/24/24 10:53 Oxygen Delivery Method Room Air 12/24/24 10:53 BMI result Body Mass Index 30.8 Const General: comfortable and alert Orientation/consciousness: patient oriented x3 HEENT Head: Yes contusion and Yes hematoma Neck Neck: Yes normal visual inspection, Yes full ROM and Yes no lymphadenopathy Chest Chest palpation & inspection: normal inspection of the chest Resp Effort & Inspection: normal respiratory effort Auscultation: no rales, no rhonchi, no wheezes and diminished lung sounds Cardio Rate: regular rate Rhythm: regular rhythm Heart sounds: S1 normal heart sound present and S2 normal heart sound present GI Palpation (GI): Soft to palpation and nontender Auscultation: normal bowel sounds Skin General skin exam: no rashes or lesions noted Neuro General: patient oriented x3 Extrem General: Yes no clubbing, cyanosis or edema Assessment & Plan Assessment & Plan (1) Dyspnea: Code(s): R06.00 - Dyspnea, unspecified Category: Medical Qualifiers: Dyspnea type: dyspnea on exertion Qualified Code(s): R06.09 - Other forms of dyspnea (2) RUCHI on CPAP: Code(s): G47.33 - Obstructive sleep apnea (adult) (pediatric); Z99.89 - Dependence on other enabling machines and devices Category: Medical (3) Chronic allergic rhinitis: Code(s): J30.9 - Allergic rhinitis, unspecified Category: Medical (4) Asthma: Code(s): J45.909 - Unspecified asthma, uncomplicated Category: Surgical Qualifiers: Asthma complication type: with acute exacerbation Asthma persistence: persistent Asthma severity: moderate Qualified Code(s): J45.41 - Moderate persistent asthma with (acute) exacerbation (5) Chronic cough: Code(s): R05.3 - Chronic cough Category: Medical (6) Pulmonary nodules: Comment: Stable for more than 5 years based on her CT scan from September 2020 Code(s): R91.8 - Other nonspecific abnormal finding of lung field Category: Medical (7) Discoid lupus: Code(s): L93.0 - Discoid lupus erythematosus Category: Medical Plan Continue Anoro and Alvesco as prescribed, add spacer AFTAB/nebulizer as needed consider Biologic therapy if no better/ Had an adverse effect to Dupixent Continue APAP therapy at night, Trial F20 airtouch med Dymista continue singulair F/U 4-6 months Coding Level of Care Code Est Pt Level 4 (05575) Complex EM visit Add On G2211 Diagnoses Dyspnea on exertion R06.09 Dyspnea type: dyspnea on exertion RUCHI on CPAP G47.33; Z99.89 Chronic allergic rhinitis J30.9 Moderate persistent asthma with acute exacerbation J45.41 Asthma complication type: with acute exacerbation Asthma persistence: persistent Asthma severity: moderate Chronic cough R05.3 Pulmonary nodules R91.8 Discoid lupus L93.0 Time Spent (min) 18
--- OUTSIDE RECORDS SUMMARY | 2024-12-24 12:51 | XMS_ITS | Data Portability ---
Author Organization [facility], [facility] Address [address] [place] [address] Care Team Providers Care Director Of Blood Name Role Phone HIM CCA OTHER Assessment Encounter Date Assessment Date Assessment LastModified by Organization Details LastModified Time 05/29/2024 05/29/2024 As noted, we were called to see this patient regarding concerns of high bp. Evaluation in the field was performed by my rigger third colleague, as noted above, I provided real-time [...] We discussed the need to seek care urgently/emergen tly in the setting of any new or worsening serious symptoms, particularly worsening shob, dizziness, vision chanes, headaches, chest pain atilhou Not available 05/29/2024 19:49:56 11/05/2024 11/05/2024 . I provided real -time medical direction via phone for this encounter, and was available for additional phone based assistance as needed. I have reviewed and agree with the Assessment and Plan as documented by the Pickle Sorter. We discussed the diagnostic uncertainty of home visits and the risk associated with this. In this case the patient and I felt this to be an acceptable and reasonable amount of risk given the benefit of avoiding an ED visit. The patient given the opportunity to ask questions. Advised if develops CP/severe SOB/turning blue/uncontrolle d n/v/d / AMS/ syncope/ hi fever unresponsive to APAP to call 911- verbalized understanding of instruction [email or web address] Not available 11/06/2024 11:49:48 Plan of Treatment Reminders Order Date Submit Date Provider Last Modified By Organization Details Last Modified Time Details Appointments None recorded. Lab rapid flu (A+B) 2024 025 [email or web address] 0 [facility], [address] [place] [address], [phone] 19:34:37 rapid SARS CoV 2 Ag, QL IA, respiratory specimen 2024 025 [email or web address], [phone] 19:34:37 Referral None recorded. Procedures None recorded. Surgeries None recorded. Imaging None recorded. Medication Orders benzonatate 200 mg capsule 2024 025 [email or web address] 0 [id number], [address] [place], [address], 5 19:34:36 azithromyci n 250 mg tablet 2024 025 [email or web address] 0 [id number], [address] [place], [address], 5 19:34:36 azithromyci n 250 mg tablet 2024 025 [email or web address] 0 [id number], [address] [place], [address], 5 19:34:36 ondansetron 4 mg disintegrat ing tablet 2024 025 [email or web address] 0 [id number], [address] [place], [address], 5 19:34:36 Patient TargetsNo targets recorded. Patient InstructionsNo instructions recorded. Reason for Referral None Reported. Results Created Date Observation Date Name Description Value Unit Range Abnormal Flag Note LastModifiedBy Organization Detail LastModifiedTime 11/06/1911/05/2024 rapid SARS CoV 2 Ag, QL IA, respi rator y speci men rapid SARS CoV 2 Ag, QL IA, respiratory specimen negati ve Not Available [address], [phone] 11/05/2024 19:10:06 11/06/19 25 11/05/2024 rapid flu (A+B) Flu negati ve Not Available [address], [address] 11/05/2024 19:09:57 Result Notes None recorded. Medical Equipment None Reported. Allergies Allergen ID Allergen Name Allergen Category Reaction Reaction Severity Criticality Documentation Date Start Date Code Code System Note Provider Name and Address Organization Details Recorded Time 69290 morphine medicatio n Not available Not available Not available 05/29/2024 7052 RxNorm Not Available [facility] - production 16:12:42 86291 Topamax medicatio n Not available Not available Not available 05/29/2024 97158 3 RxNorm Not Available [facility] - production 5 16:12:42 81892 Seroquel medicatio n Not available Not available Not available 05/29/2024 78034 RxNorm Not Available [facility] - production 16:12:42 96258 amitripty line medicatio n Not available Not available Not available 11/05/2024 704 RxNorm Laura Banks MD [address] [place] [address],[address], [place], [phone], [employer] 5 19:07:35 Medications Name Sig Start Date Stop Date Status Note LastModified by Organization Details LastModified Time desonide 0.05 % topical cream APPLY TO ECZEMA ON FACE TWICE DAILY NEEDED active Not Available Not Available No t Available ketoconazole 2 % shampoo LATHER INTO SCALP, LET SIT FOR 5 MINUTES BEFORE RINSING. REPEAT 2-3 TIMES WEEKLY. active Not Available Not Available No t Available albuterol sulfate 2.5 mg/3 mL (0.083 %) solution for nebulization 2.5 MG (3 ML) INHALED 2 TIMES A DAY FOR SHORTNESS OF BREATH OR WHEEZING FOR 30 DAYS active Not Available Not Available Not Available azithromycin 250 mg tablet STARTING 11/06 TAKE 1 TABLET BY ORAL ROUTE ONCE DAILY FOR 4 DAYS active Not Available Not Available N ot Available ibuprofen 800 mg tablet TAKE 1 TABLET BY MOUTH THREE TIMES A DAY NEEDED FOR MODERATE PAIN FOR 14 DAYS active Not Available Not Available No t Available benzonatate 200 mg capsule TAKE 1 CAPSULE 3 TIMES A DAY BY ORAL ROUTE NEEDED, FOR COUGH. active Not Available Not Available No t Available valacyclovir 1 gram tablet TAKE 1 TABLET BY MOUTH 3 TIMES A DAY FOR 7 DAYS active Not Available Not Available N ot Available triamcinolon e acetonide 0.1 % topical cream APPLY TO RASH UNDER BREASTS TWICE A DAY FOR 2 WEEKS active Not Available Not Available Not Available tacrolimus 0.1 % topical ointment APPLY TO FLARES ON CHEST AND SHOULDERS TWICE DAILY active Not Available Not Available Not Available nystatin 100,000 unit/gram topical cream APPLY TO RASH UNDER BREASTS TWICE A DAY FOR 2 WEEKS active Not Available Not Available Not Available fluticasone propionate 220 mcg/actuatio n HFA aerosol inhaler INHALE 1 PUFF 2 TIMES A DAY FOR 30 DAYS active Not Available Not Available Not Available hydrochlorot hiazide 25 mg tablet TAKE 1 TABLET BY MOUTH EVERY DAY active Not Available Not Available No t Available mupirocin 2 % topical ointment APPLY TO RASH UNDER BREAST TWICE A DAY active Not Available Not Available Not Available furosemide 20 mg tablet TAKE 1 TABLET BY MOUTH EVERY DAY FOR 14 DAYS active Not Available Not Available No t Available azelastine 137 mcg (0.1 %) nasal spray INSTILL 2 SPRAY INTRANASALL Y 2 TIMES A DAY FOR 30 DAYS ADMINISTER INTO EACH NOSTRIL active Not Available Not Available No t Available albuterol sulfate HFA 90 mcg/actuatio n aerosol inhaler INHALE 2 PUFFS EVERY 6 HOURS NEEDED FOR SHORTNESS OF BREATH OR WHEEZING FOR 30 DAYS active Not Available Not Available Not Available ipratropium bromide 42 mcg (0.06 %) nasal spray 2 SPRAY INTRANASALL Y 3 TIMES A DAY NEEDED FOR ALLERGY SYMPTOMS ADMINISTER INTO EACH NOSTRIL active Not Available Not Available No t Available fluticasone propionate 50 mcg/actuatio n nasal spray,suspen ely INHALE 2 SPRAYS INTRANASALL Y DAILY FOR 30 DAYS active Not Available Not Available No t Available betamethason e dipropionate 0.05 % lotion APPLY TO SCALP TOPICALLY TWICE A DAY X 2 WEEKS NEEDED FOR ITCH active Not Available Not Available No t Available Readi-Cat 2 2 % (w/v) oral suspension DRINK 1ST BOTTLE 6 HOUR BEFORE AND 2ND BOTTLE [address] SCAN active Not Available Not Available No t Available Rinvoq 15 mg tablet,exten ded release TAKE 1 TABLET BY MOUTH EVERY DAY active Not Available Not Available No t Available Vitals Date Recorded Body height Oxygen saturation Oxygen saturation in Arterial blood by Pulse oximetry Body temperature Body weight Respiratory rate Heart rate Systolic And Diastolic Provider Name and Address Organization Details Last Updated DateTime 5 152.4 cm 98 % 98 % 98.4 [degF] 47621.8 g 14 /min 80 /min 180/84 mm[Hg] Not Available [employer] - production 19:40:40 Date Recorded Body height Heart rate Oxygen saturation Oxygen saturation in Arterial blood by Pulse oximetry Respiratory rate Body temperature Body weight Systolic And Diastolic Provider Name and Address Organization Details Last Updated DateTime 5 157.48 cm 74 /min 97 % 97 % 14 /min 98 [degF] 90724.8 g 132/74 mm[Hg] Not Available [email or web address] - production 19:06:47 Social History None recorded. Functional Status None recorded. Mental Status None recorded. Family History Nothing Reported. Medical History No medical history recorded. Gynecological HistoryNo gynecological history recorded. Obstetrics History GPAL:G 0 P 0 0 0 0 Past Encounters Encounter ID Performer Location Encounter Start Date Encounter Closed Date Diagnosis/Indication Diagnosis SNOMED-CT Code Diagnosis ICD10 Code Diagnosis IMO Codes Diagnosis Note [id number] Lisy Crowder MD [facility] [address] [place] [phone] 05/29/2024 19:39:47 05/29/2024 21:58:39 Essential hypertension 04149734 I10 [id number] Laura Banks MD [facility] [address] [address] 11/05/2024 19:06:43 11/06/2024 14:46:18 Acute upper respiratory infection 80840031 J06.9 [id number] COVID and flu negative-p atient likely has sinusitis/ possible bronchitis . She states she has had azithromyc in without problem in the past. She has no history of CKD. GFR was 92 on 04/17/2024. Patient is requesting cough suppressan t especially for at night. Advised it is not covered by insurance but medic will educate patient on how to get a good Rx card to help defray the cost. Patient has Zofran at home but has not used any today. Will give Zofran prior to administer ing azithromyc in. Advised to take azithromyc in with a little bit of food and to take her Zofran as directed/t o stay hydrated with sugar-free fluids. Also advised to continue her albuterol every 6 hours. Patient verbalized understand ing of all instructio ns. Her blood sugar has been well-contr olled it was 91 fasting this morning Health Concerns Section Related Observation LastModified by Organization Detai ls LastModified Time None Recorded Concern Status LastModified by Organization Details LastModified Time None Recorded Advance Directives Directive None Recorded Payers Insurance Date Sequence Insurance Name Policy Number Policy Hernandez Covered Member ID Hernandez Member ID Guarantor Name 11/05/2024 1 [facility] - DOS ON OR AFTER 2022 - DUAL ELIGIBLE - DETENTION OPTIONS AND ONE CARE (MEDICARE REPLACEMENT/ADV ANTAGE - HMO) Tresa Garza [id number] Tresa Garza Notes Date Note Type Note Provider Name and Address Organization Details Recorded Time 05/29/2024 text/html CRC Nurse Triage Notes (Stephanie Del Rio - RN): Reason For Request: Patient is having problems w/ her blood pressure.Denies: History of Heart Attack, in the setting of active chest pain Active Chest pain, radiates to neck jaw and or arm Diaphoretic/Sweating Describes as c rushing Sudden onset of nausea/Vomiting and shortness of breath. Shortness of Breath Unable to speak in full sentences without distress Chief Complaints: High Blood PressurePMH: Hyperlipidemia, Hypertension, AsthmaPMH Reviewed at 05/29/2024 - 16:12Allergies Reviewed at 05/29/2024 - 16:12Comments: Issues with HTN recently. BP 187/102 taken today at 1pm by visiting nurse. c/o slight chest pressure. Denies left arm, neck or jaw pain, dizziness/lightheaded ness, or visual changes. shortness of breath at baseline, hx of Asthma. Patient is on HCTZ and Atorvastatin. No recent changes to medication. Education provided on the response time and the member was advised to monitor reported s/s and seek emergency treatment if needed. [facility] HPI: high bp. pcp started hctz 3d ago at dose of 12.5. but in 170s/80. some chest pressure but is something she's had since childhood, constant. has f/u on Monday w PCP. ..................... ..................... ..................... ..................... ..................... ..................... ............... Pickle Sorter Note From Logan Joyner: Patient alert and [...] a PCP appointment scheduled in five days. [facility] advises patient to continue to record blood pressures, take medication as prescribed and follow up with PCP. Red flags patient education discussed. ..................... ..................... ..................... ..................... ..................... ..................... ............... [facility] Consulted: Lisy Crowder ..................... ..................... ..................... ..................... ..................... ..................... ............... Disposition: Fulfilled Lisy Crowder MD [address] [place] [address],[address], [place], [phone], [employer] 05/29/2024 20:47:48 11/05/2024 text/html ROS as noted in the [facility] Nurse Triage Notes (Kendra Isaacs - RN): Reason For Request: asthma attack, having trouble breathing and coughing, bones are sore Patient Reports: Cough, fever greater than 2 days ; History of asthma, increased use of inhaler; Cough; Shortness of breath with exertionDenies: Increased work of breathing/labored with or without fever Unable to speak in full sentences without distress Discoloration of skin -cyanosis Needs to sleep sitting up, can t catch breath Shortness of breath in setting of confusion COPD Sputum increase Pain with inspiration Chief Complaints: Breathing ProblemsPMH: Hyperlipidemia, Hypertension, Asthma, Diabetes Mellitus Type 2, FibromyalgiaPMH Reviewed at 11/05/2024 17:47Allergies Reviewed at 11/05/2024 - 17:47Comments: 74 y.o female complains of Breathing ProblemsPt is calling for shortness of breath with cough. She has had symptoms for 3 days, she has been taking her nebs and inhalers.She has a h/o asthma She denies a prod cough just dry.She also has body aches . She did have chills the other day , no fever.She has been trying some cough medicine but not helpingShe is talking in full sentences , she did not have a wheeze but had just had a neb and stated she did have one earlierI provided information on the mobile health provider response time and advised the patient and/or caregiver to monitor reported signs and symptoms. I discussed the warning signs of when to seek emergency care. Pickle Sorter Organization Information for Logan Joyner Legal Name: [facility] : [address], [place] [address], [facility] Director: Justen Calvert [facility] No.: [id number] Pickle Sorter POC Test Results from Logan Joyner Rapid COVID antigen (18:58:46)COVID: - Rapid influenza antigen (18:58:47)Flu: - ..................... ..................... ..................... ..................... ..................... ..................... ............... Pickle Sorter Note From Logan Joyner: Patient complains of nasal congestion, sore throat, [...] assisted to sign up for good RX. [facility] Lab Orders: rapid flu (A+B): Performed rapid SARS CoV 2 Ag, QL IA, respiratory specimen: Performed [facility] Medication Orders: azithromycin 250 mg tablet: Performed ondansetron 4 mg disintegrating tablet: Performed ..................... ..................... ..................... ..................... ..................... ..................... ............... [facility] Consulted: Laura Banks ..................... ..................... ..................... ..................... ..................... ..................... ............... Disposition: FulfilledSEGMD: As above. Patient complains of postnasal drip and she is coughing up thick yellow sputum. She states her throat is only slightly sore worsened by cough. Laura Banks MD [address] [place] [address],[address], [place], [phone], [employer] 11/06/2024 11:50:18 OBGyn Episode No OBEpisode recorded.
== END 2024-12-24 11:31 | disposition home or self-care (01) ==
LOC: HO.HPS 10:41
PROVIDERS: PCP Internal Medicine; Visit Provider Hospitalist
DX: R06.09 Other forms of dyspnea (principal); G47.33 Obstructive sleep apnea (adult) (pediatric); Z99.89 Dependence on other enabling machines and devices; J30.9 Allergic rhinitis, unspecified; J45.41 Moderate persistent asthma with (acute) exacerbation; R05.3 Chronic cough; R91.8 Other nonspecific abnormal finding of lung field; L93.0 Discoid lupus erythematosus
CPT/HCPCS: 99214; G2211

== ENCOUNTER → 2024-12-24 10:40 | Outpatient (BNVA) | payer OTHER, SELFPAY | PROVIDERS: PCP Internal Medicine; Visit Provider Hospitalist | DX: J45.41 Moderate persistent asthma with (acute) exacerbation (principal); G47.33 Obstructive sleep apnea (adult) (pediatric); Z99.89 Dependence on other enabling machines and devices; J30.9 Allergic rhinitis, unspecified; R05.3 Chronic cough; R91.8 Other nonspecific abnormal finding of lung field; L93.0 Discoid lupus erythematosus; R06.09 Other forms of dyspnea | CPT/HCPCS: 99212 ==

== ENCOUNTER 2025-02-10 08:00 | Outpatient (AMB) | payer OTHER, SELFPAY ==
--- OUTSIDE RECORDS SUMMARY | 2025-02-10 08:08 | XMS_ITS | Patient Health Record ---
Author Organization [facility] Address [address] [place] [address] Care Team Providers Care Syrup Shed Supervisor Name Role Phone DAREK HODGE MD Primary Care [facility]U Unavailable Unavailable Allergies Allergen (clinical drug ingredient) Drug/Non Drug Allergy documented on EMR Reaction Allergy Type Onset Date Status aspirin ASPRIN (uncoded) swelling Allergy Act almaz MIGRALAN (uncoded) vomiting Allergy A ctive Red meat RED MEAT (uncoded) Unknown Allergy A ctive quetiapine SEROQUIL (uncoded) tightness in chest, Nausea, Vomiting Allergy Active SHINGLES VACCINE (uncoded) Unknown Allergy Active TOMATOS, STRAWBERRIES (uncoded) Unknown Allergy Active EPINEPHrine anaphylaxis Drug Allergy Act almaz acetaminophen / oxycodone Percocet Unknown Drug Allergy Active Streptococcus pneumoniae serotype 1 capsular antigen diphtheria [id number] protein conjugate vaccine / Streptococcus pneumoniae serotype 14 capsular antigen diphtheria [id number] protein conjugate vaccine / Streptococcus pneumoniae serotype 18C capsular antigen diphtheria [id number] protein conjugate vaccine / Streptococcus pneumoniae serotype 19A capsular antigen diphtheria [id number] protein conjugate vaccine / Streptococcus pneumoniae serotype 19F capsular antigen diphtheria [id number] protein conjugate vaccine / Streptococcus pneumoniae serotype 23F capsular antigen diphtheria IMR728 protein conjugate vaccine / Streptococcus pneumoniae serotype 3 capsular antigen diphtheria [id number] protein conjugate vaccine / Streptococcus pneumoniae serotype 4 capsular antigen diphtheria KYO064 protein conjugate vaccine / Streptococcus pneumoniae serotype 5 capsular antigen diphtheria DVF597 protein conjugate vaccine / Streptococcus pneumoniae serotype 6A capsular antigen diphtheria [id number] protein conjugate vaccine / Streptococcus pneumoniae serotype 6B capsular antigen diphtheria LGI284 protein conjugate vaccine / Streptococcus pneumoniae serotype 7F capsular antigen diphtheria QTD048 protein conjugate vaccine / Streptococcus pneumoniae serotype 9V capsular antigen diphtheria BZE541 protein conjugate vaccine Prevnar 13 Unknown Drug Allergy Active topiramate Topamax Unknown Drug Allergy Active Vitamin B 12 Unknown Drug Allergy Acti ve amitriptyline Amitriptyline Unknown Drug Allergy Active lactose Lactose (Intolerance) Unknown Drug Allergy Active Latex Latex red rash Allergy Active Reason For Referral No Information Medications Medication SIG (Take, Route, Frequency, Duration) Notes Start Date End Date Status PriLOSEC 40 MG DELAYED RELEASE CAPSULE 1 CAP(S) ORALLY ONCE A DAY NAME ONLY Conversion from Multum Review and pick correct strength-formulatio n from Synetiq options. If intended option is not shown, discontinue and re-order from Brainceuticals Search. Active Cymbalta 60 MG Capsule Delayed Release Particles 1 cap(s) orally 2 times a day/depression Active Artificial Tears - OINTMENT 1 TAHIRA IN EACH EYE ONCE A DAY (AT BEDTIME) NAME ONLY Conversion from Multum Review and pick correct strength-formulatio n from Synetiq options. If intended option is not shown, discontinue and re-order from Quick Search. Active metFORMIN HCl ER 500 MG Tablet Extended Release 24 Hour 2 tab(s) orally twice a day; Duration: 90 days Active Lunesta 3 MG Tablet 1 tab(s) orally hs/insomnia; Duration: 7 day(s) Active Januvia 100 MG Tablet 1 tab(s) orally once a day; Duration: 90 days Active Anoro Ellipta 62.5-25 MCG/INH Aerosol Powder Breath Activated 1 puff(s) inhaled once a day; Duration: 30 day(s) 01/12/2016 Active Furosemide 20 MG Tablet 1 tab(s) orally once a day - water pill Active Vitamin B12 1000 MCG Tablet Extended Release 1 tablet Orally Once a day; Duration: 90 days 10/25/2021 Active Metoprolol Tartrate 50 MG Tablet 2 tab(s) orally daily Active Albuterol Sulfate (2.5 MG/3ML) 0.083% Nebulization Solution 3 mL inhaled every 6 hours as needed Active Alvesco 80 MCG/ACT Aerosol Solution inhaled 2 puffS BID Acti ve Singulair 10 MG Tablet 1 tab(s) orally QPM/asthma Active FREESTYLE FREEDOM LITE METER DIRECTED TO TEST BLOOD GLUCOSE *Please review for potential replacement for e-prescription and drug interaction check* 06/22/2017 Active FREESTYLE LITE TEST STRIPS DIRECTED DX E11.40 TID *Please review for potential replacement for e-prescription and drug interaction check* 09/12/2016 Active Budesonide 0.5 MG/2ML Suspension 2 mL by nebulizer 2 times a day as needed 05/01/2012 Active CPAP 10-14CM DX/RUCHI QHS *Please revie w for potential replacement for e-prescription and drug interaction check* Active Aspirin 81 MG Tablet Delayed Release 1 tab(s) orally once a day; Duration: 30 day(s) Active Gabapentin 400 MG Capsule 1 cap(s) orally daily Active Lipitor 40 MG Tablet 1 tab(s) orally once a day; Duration: 30 day(s) Active Centrum THERAPEUTIC MULTIPLE VITAMINS WITH MINERALS TABLET 1 TAB(S) ORALLY ONCE A DAY NAME ONLY Conversion from Multum Review and pick correct strength-formulatio n from Synetiq options. If intended option is not shown, discontinue and re-order from Quick Search. Active FREESTYLE LITE LANCETS DIRECTED TO TEST BLOOD GLUCOSE TID *Please review for potential replacement for e-prescription and drug interaction check* 09/12/2016 Active Tylenol 8 Hour prn NAME ONLY Conversion from Multum Review and pick correct strength-formulatio n from Synetiq options. If intended option is not shown, discontinue and re-order from Quick Search. Active Estrace 0.5 MG Tablet 1 tab(s) orally 3 times per week Active DESONIDE CREAM .05% ONE APPLICATION BID *Please review for potential replacement for e-prescription and drug interaction check* Active Clobetasol Propionate 0.05 % Cream 1 application Externally Twice a day; Duration: 10 day(s) Active Xyzal Allergy 24HR 5 MG Tablet 1 tab(s) orally once a day (in the evening); Duration: 30 day(s) Active Ketoconazole 1 % Shampoo 1 tahira applied topically every 3 days Active Immunizations Vaccine Route Administration Date Status Comme nts Influenza IM Intramuscular 11/22/2011 Administered Influenza, Fluvirin multi dose Unknown 11/03/2015 Others given at [facility] 10/28/15 Influenza, Fluzone Quad Unknown 01/23/2015 Administered given at [facility] 11/06/14 Pneumococcal,Prevn ar 13, PEDS STATE SUPPLIED IM Intramuscular 06/12/2015 Administered Tdap (Adacel) IM Intramuscular 05/20/2013 Administered Social History Tobacco Use: Social History Observation Description Date Details (start date - stop date) Never Smoker NA - NA Social History Tobacco Use: Social Info Question Answer Notes Smoking Are you a: never smoker Additional Details Category Social Info Options Details General Occupation: Retired Disabled-[employer] asbestos exposure: no Past year's travels: [place], , [place], [place] alcohol use: no drug use: no Hobbies/Exercise habits: read, b aking, shopping Coffee/Tea/Soda: yes Coffee, 2, cups per day Marital Status experience no Living with alone Pets none smokers in household no pt never sm chato Section Notes: [place] [id number]. [place] . [place] a [place] . [place] . [place] a [place] . [place] a [place] . [place] a [place] . [place] a [place] . [place] a [place] . [place] a [place] . [place] a [place] . [place] a [place] . [place] a [place] . [place] a [place] . [place] a [place] . [place] a [place] . [place] a [place] . [place] a [place] . [place] a [place] . [place] a [place]ilit[place] . [place]ilit[place] . [place] a [place] . [place] a [place] . [place] a [place] . [place] . [place] a [place] . [place] a [place] . [place] a [place] . [place] a [place] . [place] a [place] . [place] a [place] . [place] a [place] . [place] . [place] a [place] . [place] a [place] . [place] a [place] . [place] a [place] . [place] a [place] . [place] a [place] . [place] a [place] . [place] a [place] . [place] a [place]ilit[place] . [place] a [place]ilit[place] . [place] a [place]ilit[place] . [place] a [place] . [place] a [place] . [place] a [place]ilit[place] . [place] a deb[place] . [place] a [place] . [place] a debilitating illness[place] . [place] debilitating illness[place] . [place] a debilitating illness[place] . [place] a debilitating illness[place] . [place] a debilitating illness[place] . [place] a debilitating illness-[place] . [place] a debilitating illness[place] . [place] a debilitating illness[place] . [place] a debilitating illness-[place] . [place] a debilitating illness-[place] . [place] a debilitating illness-[place] . [place] a debilitating illness[place] . [place] a debilit[place] illness[place] . [place] a [place]ilit[place] . [place]ilit[place] . [place] debilitating illness-in . Problems Problem Type SNOMED Code ICD Code Onset Dates Problem Status W/U Status Risk Notes Problem Candidiasis of mouth (98632150) Candidiasis, oral (112.0) Active confirmed Problem Diabetes mellitus ty pe II (09668715) Diabetes mellitus type II (250.00) Active confirmed Low Problem Pulmonary embolism with infarction (9806503446268) Pulmonary embolism and infarction, other (415.19) Active confirmed Problem Dysphagia (98937731) Dysphagia (438.82) Active confirmed Low Problem Laryngospasm (055861241) Laryngospasm (478.74) Active confirmed better Problem Laryngotracheobronch it is (45208131) Laryngotracheobronc hitis (490) Active confirmed Likely viral. rapid strep is negativ e, no fevers Problem Asthma (573649109) Asthma (493.90) Active confi rmed stable Problem Gastroesophageal reflux disease (disorder) (836383664) GERD [Gastroesophageal reflux disease] (530.81) Active confirmed Better Problem Dyspnea (990992273) Dyspnea (786.09) Active con firmed Problem Bronchitis (61536176) Bronchitis NOS (490) Active confirmed Problem Pain in limb (12953695) Pain in limb (729.5) Active confirmed ?fractu re Problem Dizziness (975796797) Dizziness (780.4) Active confirmed Problem Acute suppurative otitis media without spontaneous rupture of ear drum (18309067) AC SUPP OTITIS MEDIA NOS (382.00) Active confirmed Problem Influenza (5534602) FLU W RESP M ANIFEST NEC (487.1) Active confirmed Problem Exacerbation of asth ma (583443689) ASTHMA NOS W (AC) EXAC (493.92) Active confirmed Low Problem VACCINATION FOR DTP-DTAP (V06.1) Active confirmed Problem Neurologic disorder associated with type II diabetes mellitus (857793432) Diabetes mellitus type 2 w/ neurological manifestations, 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) Active confirmed Problem Obstructive sleep apnea syndrome (44813843) Sleep apnea, obstructive (327.23) Active confirmed Problem Asthma without statu s asthmaticus (90580503) Asthma, unspecified, w/o status asthmaticus or acute exacerbation (493.90) Active confirmed Low Problem Acute severe exacerbation of asthma (941401918) Allergic asthma NOS with status asthmaticus (493.91) Active confirmed Low Problem Vitamin D deficiency (26962896) Vitamin D deficiency (E55.9) Active confirmed Problem Bronchitis (04416758) Bronchitis (J40) Active c onfirmed Problem Chest pain (16343973) Chest pain (R07.9) Active confirmed Problem Obstructive sleep apnea (05389619) Obstructive sleep apnea (G47.33) Active confirmed Problem Exacerbation of asth ma (692884148) Asthma exacerbation (J45.901) Active confirmed Problem Uncomplicated modera te persistent asthma (336617019) Moderate persistent asthma without complication (J45.40) Active confirmed Problem Pure hyperglyceridem ia (320219433) High triglycerides (E78.1) Active confirmed Problem Multiple pulmonary nodules (969232075) Pulmonary nodules (R91.8) Active confirmed Problem Diabetic peripheral neuropathy associated with type 2 diabetes mellitus (6491922771870) Type 2 diabetes mellitus with peripheral neuropathy (E11.40) Active confirmed Problem Chronic fatigue syndrome (02483742) Chronic fatigue (R53.82) Active confirmed Problem Body mass index 30+ - obesity (642413786) BMI 30.0-30.9,adult (Z68.30) Active confirmed Problem Pulmonary Embolism (19294385) Other pulmonary embolism without acute cor pulmonale, unspecified chronicity (I26.99) Active confirmed Problem Family history of endocrine disorders (233864859) Family history of hypothyroidism (Z83.49) Active confirmed Problem Dysphagia (06359394) Dysphagia, unspecified type (R13.10) Active confirmed Problem Blood chemistry abnormal (175876392) High thyroid stimulating hormone (TSH) level (R79.89) Active confirmed Plan Of Treatment Pending Test Test Name Order Date COMP. METABOLIC 10/13/2015 D-DIMER (KACY)(RECV'D W/IN 4HRS - BRL) 11/03/2015 Urine Microalbumin(Creat/MALB Ratio) VITAMIN B12 07/16/2021 Future Test Test Name Order Date Urine Microalbumin(Creat/MALB Ratio) CT CHEST WITHOUT CONTRAST 08/13/2016 GLYCOHEMOGLOBIN (HBA1C) 03/08/2019 COMP. METABOLIC 03/08/2019 LIPID PROFILE 12/18/2019 GLYCOHEMOGLOBIN (HBA1C) 12/18/2019 COMP. METABOLIC 12/18/2019 Urine Microalbumin(Creat/MALB Ratio) 25 OH Vitamin D 12/18/2019 THYROID PEROXIDASE AB(Thyroid Peroxidase ab(TPO) 12/18/2019 TSH WITH REFLEX TO FT4 12/18/2019 Insurance Providers Payer Name Payer Address Payer Phone Subscriber Number Group Number Insured Name Patient Relationship to Insured Coverage Start Date Coverage End Date MEDICARE [email or web address] [facility] [employer] [address] [place] [id number] ALEXYS WILEY Self - patient is the insured 8 [employer] [address] [place] [address] [id number] ALEXYS WILEY Self - patient is the insured 4 Medical (General) History Medical History History ICD Code cutaneous lupus hypertension fibromyalgia Dr Huggins Arthritis asthma migraine headache circulation problem neuropathy-numbness of toes, burning/pins and needles of calves. Rx by Dr Rasheed hypoglycemia sleep apnea IBS blood clots psoriasis pneumonia phlebitis osteoarthritis macular degeneration ---Dr Fuentes Type 2 DM 2001 Unable to walk 1997-in WC for 2 yrs-? dx . Sciatica High TSH 5.72 in 07/22-normalized spontan eously by 10/22 joya Surgical History Surgery Date(Month/Year) Bladder stimulator removed 07/2021 Change neurotransmitter 04/23 3 bones removed from mouth 07/2016 left total knee replacement 08/25/14 bladder stimulator implanted 08/12/11 Bronch 09/2011 knee surgery- [facility] reconstruction complete - left foot 09/23 19 Hospitalization History Reason Date(Month/Year) asthma - [facility] migraine headache- phlebitis- asthma- [facility] 07/15/2013 PE- [facility]- heritage abdul- 2 weeks 08/28/14 [facility]- Arrhythmia 09/2017 replace neurostemulator 07/2021
--- OUTSIDE RECORDS SUMMARY | 2025-02-10 08:09 | XMS_ITS | Clinical Summary ---
Author Organization [employer] [facility] it[facility] Address [address] [place] [address] Care Team Providers Care Project Internship Name Role Phone Myla Tayolr MD Primary Care Provider Surgical History Surgery Date Site/Laterality Comments TOTAL [...] on file Sexual Orientation Not on file Plan of Treatment Health Maintenance Due Date Last Done Comments Colorectal Cancer Screening: Colonoscopy 1950 Diabetes: Annual GFR (Glomerular Filtration Rate) 1950 Diabetes: Annual Foot Exam 1962 Diabetes: Annual Retina Eye Exam 1962 DTaP,Tdap,and Td Vaccines (1 - Tdap) 08/24/1971 Pneumococcal Vaccine: 50+ Years (1 of 2 - PCV) 08/24/1971 RSV Immunization Adult Patients (1 - Risk 50-74 years 1-dose series) 2002 Zoster Vaccines (1 of 2) 2002 Cholesterol Screening (Lipid Panel) 02/06/2022 Falls Risk Assessment 02/06/2022 Hepatitis C [...] AM EDT Narrative 12/04/2023 12:48 PM EDT [facility] Diagnostic Imaging Department [address] [place] [address] Patient: ALEXYS WILEYO.B./Age/Sex: 1950 - 73 - F Unit#: [id number] Location/Status: SPDIMAM/REG CLI Mnemonic/Ordering Site: [facility] Ordering Physician: KENNEDY GTZ DO Matias Screening Digital - 12/04/23 - 904 Report Status:Signed EXAM: [facility] Screening Digital EXAM DATE AND TIME: 12/04/2023 9:05 AM HISTORY: Screening. COMPARISON: 11/30/22, 11/26/21, 11/23/20 TECHNIQUE: Bilateral digital breast tomosynthesis was performed in the CC and MLO projections. Computer aided detection with [employer] 3D 3.1 was employed. TISSUE DENSITY: a. [...] Mamm[facility] performed at [facility] [address] [place] [address] Dictating Physician: KARLA HALEY MD Electronically Signed by: KARLA HALEY MD Dic Date/Time: 12/04/23 1247 Sign date/Time: 12/04/23 1248 Procedure Note Karla Haley MD - 12/20/2023 [facility] Diagnostic Imaging Department [address] [place] [address] Patient: ALEXYS WILEY/Age/Sex: 1950 - 73 - F Unit#: [id number] Location/Status: [facility] CLI Mnemonic/Ordering Site: [facility] Ordering Physician: TRESA,KENNEDY M DO Matias Screening Digital - 12/04/23 - 0905 Report Status:Signed EXAM: [facility] Screening Digital EXAM DATE AND TIME: 12/04/2023 9:05 AM HISTORY: Screening. COMPARISON: 11/30/22, 11/26/21, 11/23/20 TECHNIQUE: Bilateral digital breast tomosynthesis was performed in the CCand MLO projections. Computer aided detection with [employer] 3D 3.1was employed. TISSUE DENSITY: a. The [...] Mammogram performed at [facility] [place] [address] Dictating Physician: KARLA HALEY MD Electronically Signed by: KARLA HALEY MD Dic Date/Time: 12/04/23 1247 Sign date/Time: 12/04/23 1248 us Kennedy Gtz DO IMG BI PROCEDURES Final Resul t * MATIAS DEXA AXIAL SKELETON (08/01/2018 8:57 AM EDT) Anatomical Region Laterality Modality Mammography 08/01/2018 7:40 AM EDT Narrative 08/01/2018 8:57 AM EDT [facility] Diagnostic Imaging Department [address] [place] [address] Patient: ALEXYS WILEY /Age/Sex: 1950 - 67 - F Unit#: [id number] Location/Status: SPDIMAM/REG CLI Mnemonic/Ordering Site: [facility] Ordering Physician: FRANCISCA [...] probability of hip fracture of 0.3%. Code 51297 Dictating Physician: CHASITY MANZANO MD Electronically Signed by: CHASITY MANZANO MD Dic Date/Time: 08/01/18854 Sign date/Time: 08/01/18856 Procedure Note Chasity Manzano - 02/22/2022 [facility] Diagnostic Imaging Department [address] [place] [address] Patient: ALEXYS WILEY Nino Lau./Age/Sex: 1950 - 67 - F Unit#: [id number] Location/Status: [facility] Ordering Physician: FRANCISCA BUNDY MD Matias Dexa [...] density of the femurs bilaterally is 1.237 gm/jx2tzxte is 123% of that of young normals [...] probability of hip fracture of 0.3%. Code 72446 Dictating Physician: CHASITY MAZNANO MD Electronically Signed by: CHASITY MANZANO MD Dic Date/Time: 08/01/18 0855 Sign date/Time: 08/01/1857 Francisca Bundy MD IMG BI PROCEDURES Final Result from Last 3 Months or Most Recently Relevant to Health Maintenance Care Teams Project Internship Relationship Specialty Start Date End Date Myla Taylor MD [address] [place] [id number] PCP - General Internal Medicine 07/15/13
--- NOTE | 2025-02-10 08:47 | MHC.AMNUTRGE ---
VS Expanded 02/10/25 08:48 Height 5 ft 3 in Weight 173 lb 2 oz BMI 30.7 Intake Visit Reasons: T2DM Allergies acetaminophen (Percocet) Allergy (Severe, Verified 12/24/24 10:57) Vomitting and Diarrhea oxycodone (Percocet) Allergy (Severe, Verified 12/24/24 10:57) Tachycardia and High Blood Pressure topiramate (Topamax) Allergy (Severe, Verified 12/24/24 10:57) Tachycardia and High Blood Pressure cyanocobalamin (vitamin B12) Allergy (Unknown, Verified 12/24/24 10:57) Vomitting and Diarrhea valacyclovir Adverse Reaction (Severe, Verified 12/24/24 10:57) Hemolytic Anemia Amitriptyline Allergy (Severe, Uncoded 08/05/24 08:12) Tachycardia and High Blood Pressure latex- rash Allergy (Severe, Uncoded 08/05/24 08:12) Rash and Hives MigraLam Allergy (Severe, Uncoded 08/05/24 08:12) Vomitting and Diarrhea red meat Allergy (Severe, Uncoded 08/05/24 08:12) Vomitting and Diarrhea tomatoes, strawberrries Allergy (Severe, Uncoded 08/05/24 08:12) Vomitting and Diarrhea lactose intolerant Allergy (Unknown, Uncoded 08/05/24 08:12) vomitting and diarrhea Nutrition Presentation Details: Pt presents for MNT for T2DM Pt brought BG record and for the past 2 weeks blood glucose have ranged from 94- 156 (lowest blood glucose pre meal and highest blood glucose after meals pre post meals) Patient reports eating well, has a variety of foods. Patient reports good awareness of amount of carbohydrates and low-fat food options. Patient reports always trying to work on her diet modifications however not successful with weight loss. Recently patient had a fall (in November) and these has lessened her physical activity, walks with a cane. [facility] Medical History (Updated 08/05/24 @ 08:44 by Jeremy Lomeli MD) Hypertension Limb swelling Discoid lupus COVID-19 Pulmonary nodules Chronic cough Chronic allergic rhinitis Atopic dermatitis RUCHI on CPAP Asthma-COPD overlap syndrome Surgical History (Updated 09/06/21 @ 22:35 by Jeremy Lomeli MD) Asthma Social History Patient Tobacco Use Status: Never used Tobacco Assessment & Plan Assessment & Plan (1) Type 2 diabetes mellitus without complications: Code(s): E11.9 - Type 2 diabetes mellitus without complications Category: Medical Plan: wt: 75kg (08/28),78 kg (02/27) es kcal needs as per [place] sT Jeor:: [id number] Est fluid needs as per 25-30 ml/kg bw: 1800 -2200 ml/d. Na: < 2300 mg/d Fiber 10-12 g/d and gradual increase as tolerated Educated patient on: ( R = reviewed V = verbalizes understanding N/R = needs review N/A = not applicable Food sources of carbohydrate, adequate serving sizes and its role in various health conditions: R V Differences between complex carbohydrates a simple carbohydrates, role of fiber in diet: R V Differences between types of fats and role in diet (mono on saturated fat fatty acids, saturated fatty acids, trans fats): R V Food sources of sodium in salt and healthy modifications for heart health in kidney health: R V Vitamins and minerals: R V Healthy plate method concept: R V Physical activity: Benefits a precaution: R V Hypoglycemia protocol (rule of 15): R V Dietary prevention of Hyperglycemia: R V natural gluten free foods, gluten free options fortified with vit/min: R Patient Instructions: Continue working on following healthy plate method and choosing lower fat foods and low-fat cooking methods. Keep hydrated by having water with meals (dilute juices or sugar containing beverages with water) Coding Level of Care Code Nutr Indiv Subseq ([id number]) Diagnoses Type 2 diabetes mellitus without complications E11.9 Time Spent (min) 30
[2025-02-10 08:48] VITALS: BMI 30.7
== END 2025-02-10 09:50 | disposition home or self-care (01) ==
LOC: HO.ENCR 08:01
PROVIDERS: PCP Internal Medicine; Visit Provider Dietitian, Registered
DX: E11.9 Type 2 diabetes mellitus without complications (principal)

== ENCOUNTER → 2025-02-10 08:00 | Outpatient (BNVA) | payer OTHER, SELFPAY | PROVIDERS: PCP Internal Medicine; Visit Provider Dietitian, Registered | DX: E11.9 Type 2 diabetes mellitus without complications (principal); Z71.3 Dietary counseling and surveillance | CPT/HCPCS: 97803 ==